=== PATIENT | female | born 1960 | race Caucasian/White ===

== ENCOUNTER 2017-01-04 21:46 | Inpatient (IN) ==
--- NOTE | 2017-01-04 22:08 | Emergency Department Note ---
Disposition Clinical Impression: DVT (deep venous thrombosis) Qualifiers: DVT location: lower extremity Affected thrombotic vein of extremity: unspecified vein of extremity Laterality: left Chronicity: acute Qualified Code( s): I82.402 - Acute embolism and thrombosis of unspecified deep veins of left lower extremity Disposition: Admitted As Inpatient Condition: Good Time of Disposition: 23:28 General Adult HPI - General Chief complaint: ED General Medical Stated complaint: MS Pain Time Seen by Provider: 01/04/17 21:47 Source: patient, EMS Limitations: no limitations Nursing Notes Reviewed: Yes Vital Signs Reviewed: Yes - History of Present Illness HPI Narrative: Patient complaining of increased pain to her left lower extremities. She does have chronic pain. She has an MS patient. states she is acting her normal self currently. She has not answering all of her questions and is rude to staff. There are no provoking or alleviating factors. She denies any trauma. Pain Scale: 10 - Related Data Home Medications Medication Instructions Recorded Confirmed Alendronate Sodium [Fosamax] 70 mg PO MO 01/13/16 05/17/16 Ascorbic Acid [Vitamin C] 500 mg PO BID 01/13/16 05/17/16 Calcium Carbonate/Vitamin D3 1 tab PO TID 01/13/16 05/17/16 [Calcium 500 + Vit D Caplet] Docusate Sodium [Dok] 100 mg PO BID 01/13/16 05/17/16 Ergocalciferol (VITAMIN D2) 50,000 unit PO GALLEGOS 01/13/16 05/17/16 [Vitamin D2 (50,000 UNIT)] Insulin Glargine [Lantus] 15 unit SQ HS 01/13/16 05/17/16 Loratadine [Claritin] 10 mg PO DAILY 01/13/16 05/17/16 Olopatadine HCl [Patanol] 5 ml OP BID 01/13/16 05/17/16 Ondansetron HCl [Zofran] 4 mg PO Q6H PRN 01/13/16 05/17/16 Oxybutynin Chloride [Ditropan Xl] 5 mg PO QAM 01/13/16 05/17/16 Polyethylene Glycol 3350 [MiraLAX] 17 gm PO DAILY PRN 01/13/16 05/17/16 Insulin LISPRO [Humalog] 2 - 12 unit SQ TID 05/17/16 05/17/16 Previous Rx's Medication Instructions Recorded Oxycodone HCl/Acetaminophen 1 each PO Q6H PRN #15 tablet 05/17/16 [Percocet 5-325 mg Tablet] Sulfamethoxazole/Trimeth DS 1 each PO BID #10 tablet 05/17/16 [Bactrim DS] Magnesium Citrate [Citroma] 296 ml PO ONCE #1 solution 05/30/16 Polyethylene Glycol 3350 [MiraLAX] 17 gm PO BID #20 powd.pack 05/30/16 levoFLOXacin [Levofloxacin] 750 mg PO DAILY #5 tablet 05/30/16 Ondansetron ODT [Zofran ODT] 4 mg SL Q6HR PRN #20 tab.rapdis 07/19/16 Allergies Allergy/AdvReac Type Severity Reaction Status Date / Time No Known Allergies Allergy Verified 05/17/16 09:21 All systems ED: reviewed and negative except as stated. Constitutional: Denies: fever, chills Cardiovascular: Denies: chest pain, palpitations, syncope Respiratory: Denies: cough, dyspnea Gastrointestinal: Denies: abdominal pain, nausea, vomiting, diarrhea Genitourinary: Denies: urgency, dysuria, frequency Musculoskeletal: Reports: other (Lower extremities pain bilaterally.). Denies: back pain, neck pain Integumentary: Reports: other (Patient states left lower extremity is more shiny than normal.). Denies: rash, abrasion Neurological: Denies: headache Past Medical History - Past Medical History Medical history: Reports: arthritis, diabetes, osteoporosis, other Surgical history: Reports: non-contributory, , cholecystectomy Psychiatric history: Reports: no psych history [employer] IND[employer] DEVELOPMENT CONSULTANT history: Reports: no [employer] DEVELOPMENT CONSULTANT history - Social History Smoking Status: Former smoker Smokeless Tobacco Status: No Alcohol use: Reports: none Drug use: Reports: none Physical Exam - General Limitations: no limitations General appearance: alert, in distress (Appears in pain) - Head Head exam: atraumatic, normocephalic, normal inspection - Eye Eye exam: Present: normal appearance, PERRL, EOMI. Absent: scleral icterus - ENT ENT exam: normal exam, normal oropharynx, mucous membranes moist - Neck Neck exam: Present: normal inspection, full ROM, trachea midline. Absent: tenderness, meningismus, lymphadenopathy - Chest Chest inspection: Present: normal inspection, symmetric chest wall rise. Absent : tenderness, rash - Respiratory Respiratory exam: Present: normal lung sounds bilaterally, respiratory distress. Absent: wheezes - Cardiovascular Cardiovascular exam: Present: normal rhythm, tachycardia, normal heart sounds - Abdominal Exam Abdominal exam: Present: soft, Non-Tender, normal bowel sounds. Absent: tenderness, distention, guarding, rebound, rigidity, organomegaly - Extremities Exam Extremities exam: Present: tenderness (Left lower extremity greater than right.) , normal capillary refill. Absent: calf tenderness - Expanded Upper Extremity Exam Shoulder exam: Present: normal inspection, full ROM Arm exam: Present: normal inspection, full ROM Elbow exam: Present: normal inspection, full ROM Forearm/Wrist exam: Present: normal inspection, full ROM Hand exam: Present: normal inspection, full ROM Vascular exam: Normal: capillary refill, radial pulse - Expanded Lower Extremity Exam Hip/Pelvis exam: Present: normal inspection, full ROM Upper leg exam: Present: normal inspection, full ROM Knee exam: Present: normal inspection, full ROM Lower leg exam: Present: other (Patient is able to move her lower legs however there are skin changes to them bilaterally. The skin is shiny bilaterally.) Ankle exam: Present: normal inspection, other (Does have movement it is just decreased) Foot/toe exam: Present: normal inspection, other (Does have movement shows decreased. Patient has strong pedal pulses bilaterally.) Neurovascular/Tendon exam: Absent: motor deficit, sensory deficit, tendon deficit - Back Exam Back exam: Present: normal inspection, full ROM. Absent: tenderness - Neurological Exam Neurological exam: Present: alert, other (Refuses to answer multiple questions.) - Psychiatric Psychiatric exam: Present: normal affect, agitated - Skin Skin exam: Present: warm, dry, intact. Absent: rash, cyanosis Course Course Narrative: Patient sent from [facility] for increased pain. Patient has an MS patient. She is reporting pain to her bilateral lower extremities left worse than right. She does not provide a very good history. She states the pain is chronic and going on for several months. The presents to the room and states that she is complaining of increased pain to the left side and that is why she is sent here today. He states her mentation is normal for her and this is no different. She does have a significant history of urinary tract infections. She has good pulses in her feet bilaterally. She has movement of both lower extremities however they are weak. This appears to be normal for patient. She does not appear to be in any distress at this time. She is alert but pleasantly demented. She does not want to speak to us and becomes disgruntled as we are asking what is hurting her today. We will image patient's left leg with an x-ray as well as good Doppler. He does not appear to be any gross swelling from the left compared to the right. She has no calf pain or tenderness. We will get an EKG as well as a troponin on the patient. She was given 5 mg of morphine prior to her arrival here. We will attempt to control patient's pain while she is here. - Reevaluation(s) Reevaluation #1: Patient reassessed. She is refusing x-rays at this time. She states she is in pain. We will give her more pain medication while she is here. We will admit patient for DVT. She is on Zaroxolyn at the halfway. So she has failed outpatient therapy for this. The halfway was unaware that she has ever had a DVT in the left lower extremity. Time: 23:17 - Consultations Consultation #1: Dr. Kong accepted patient in stable condition. Time: 23:24 Vital Signs Temperature 98.8 F 01/04/17 21:48 Pulse Rate 105 01/04/17 21:48 Respiratory Rate 18 01/04/17 21:48 Blood Pressure 155/80 01/04/17 21:48 O2 Sat by Pulse Oximetry 100 01/04/17 21:48 Temperature 98.8 F 01/04/17 21:48 Pulse Rate 120 01/04/17 23:28 Respiratory Rate 14 01/05/17 00:31 Blood Pressure 115/88 01/05/17 00:31 O2 Sat by Pulse Oximetry 98 01/04/17 23:28 Oxygen Delivery Oxygen Delivery Room Air Medical Decision Making - Medical Records Medical records reviewed: Yes I reviewed the patient's medical records. - Lab Data Lab results reviewed: Yes I reviewed the patient's lab results. Result diagrams: 01/04/17 22:17 01/04/17 22:17 Lab Results 01/04/17 01/04/17 01/04/17 Range/Units 22:17 22:17 22:17 WBC 13.8 H (4.3-11.1) K/mcL RBC 4.62 (3.82-4.97) M/mcL Hgb 13.0 (11.5-15.4) g/dL Hct 40.2 (35.3-44.9) % MCV 87.0 (83.0-100.0) fL MCH 28.1 (28.0-33.3) pg MCHC 32.3 (31.6-35.5) g/dL RDW 14.2 (11.5-14.5) % Plt Count 308 (140-400) K/mcL MPV 10.8 (9.4-12.4) fL Immature Gran % 0.3 (0-4) % Seg Neutrophils % 71.0 % Lymphocytes % 20.9 % Monocytes % 6.6 % Eosinophils % 0.8 % Basophils % 0.4 % Neutrophils # 9.8 H (1.6-8.9) K/mcL Lymphocytes # 2.9 (0.6-4.6) K/mcL Monocytes # 0.9 (0.0-1.3) K/mcL Eosinophils # 0.1 (0.0-0.6) K/mcL Basophils # 0.1 (0.0-0.2) K/mcL PT (9.4-12.1) Seconds INR APTT (26.0-36.0) Seconds Sodium 141 (136-145) mEq/L Potassium 3.9 (3.5-4.5) mEq/L Chloride 107 (98-109) mEq/L Carbon Dioxide 23 (19-29) mEq/L BUN 24 H (7-20) mg/dL Creatinine 0.80 (0.57-1.11) mg/dL Est GFR ( Amer) > 60 (> 60) Est GFR (Non-Af Amer) > 60 (> 60) BUN/Creatinine Ratio 30 H (6-26) Glucose 244 H (70-99) mg/dL Calculated Osmolality 304 H (280-300) Calcium 9.2 (8.6-10.8) mg/dL Troponin I 0.02 (0-0.03) ng/mL 01/04/17 Range/Units 22:17 WBC (4.3-11.1) K/mcL RBC (3.82-4.97) M/mcL Hgb (11.5-15.4) g/dL Hct (35.3-44.9) % MCV (83.0-100.0) fL MCH (28.0-33.3) pg MCHC (31.6-35.5) g/dL RDW (11.5-14.5) % Plt Count (140-400) K/mcL MPV (9.4-12.4) fL Immature Gran % (0-4) % Seg Neutrophils % % Lymphocytes % % Monocytes % % Eosinophils % % Basophils % % Neutrophils # (1.6-8.9) K/mcL Lymphocytes # (0.6-4.6) K/mcL Monocytes # (0.0-1.3) K/mcL Eosinophils # (0.0-0.6) K/mcL Basophils # (0.0-0.2) K/mcL PT 11.8 (9.4-12.1) Seconds INR 1.1 APTT 34.2 (26.0-36.0) Seconds Sodium (136-145) mEq/L Potassium (3.5-4.5) mEq/L Chloride (98-109) mEq/L Carbon Dioxide (19-29) mEq/L BUN (7-20) mg/dL Creatinine (0.57-1.11) mg/dL Est GFR ( Amer) (> 60) Est GFR (Non-Af Amer) (> 60) BUN/Creatinine Ratio (6-26) Glucose (70-99) mg/dL Calculated Osmolality (280-300) Calcium (8.6-10.8) mg/dL Troponin I (0-0.03) ng/mL - Radiology Data Radiology results reviewed: Yes I reviewed the patient's radiology results. - EKG Data EKG #1 EKG attestation: Yes I reviewed and interpreted this EKG. EKG results narrative: Sinus tachycardia at a rate of 121. WI interval is 175. QRS duration is 90. QT is 338. QTC is 410. There is a significant amount of artifact on this EKG however does not appear as if there is any signs of ischemia. No Previous EKG to compare to. Attestation Statement - Attestation Attestation: I, Matthieu Chairez, examined this patient and my medical decision-making was reviewed with the TEMPERATURE CONTROL INSPECTOR/PA/Advanced Practice Nurse/Resident Physician. I agree with the documented findings, disposition and treatment plan as described except to the extent set forth below. 56-year-old female presents with concerns of left lower extremity pain. Patient is a poor historian and is unable to give a history regarding her case her presentation. states she started to complain of left lower extremity pain over the past 24-48 hours. She is currently residing at a halfway for severe MS. Patient is nonambulatory and has sustained a fracture to her right femur without apparent trauma in the past. Patient has a left lower extremity DVT today even though she takes Xarelto at the nursing facility. Patient apparently took Coumadin in the past but was recently switched over the past few months. X-rays were ordered of the left lower extremity to evaluate for new or cold fracture. Patient refused these x-rays despite treatment with pain medication. Patient will be admitted to the hospital for further care and evaluation of her left lower extremity DVT. She was started on Lovenox after receiving a normal creatinine. Patient does not complain of shortness of breath or chest pain in the emergency department.
[2017-01-04 23:07] LABS: Basophils # 0.1 K/mcL (0.0-0.2); Basophils % 0.4 %; Eosinophils # 0.1 K/mcL (0.0-0.6); Eosinophils % 0.8 %; Hematocrit 40.2 % (35.3-44.9); Immature Granulocytes % 0.3 % (0-4); Lymphocytes # 2.9 K/mcL (0.6-4.6); Lymphocytes % 20.9 %; Mean Corpuscular HGB Conc 32.3 g/dL (31.6-35.5); Mean Corpuscular Hemoglobin 28.1 pg (28.0-33.3); Mean Platelet Volume 10.8 fL (9.4-12.4); Monocytes # 0.9 K/mcL (0.0-1.3); Monocytes % 6.6 %; Neutrophils # 9.8 K/mcL (1.6-8.9); Platelet Count 308 K/mcL (140-400); Red Blood Count 4.62 M/mcL (3.82-4.97); Red Cell Distribution Width 14.2 % (11.5-14.5)
[2017-01-04 23:12] LABS: INR 1.1; Prothrombin Time 11.8 Seconds (9.4-12.1)
[2017-01-04 23:14] LABS: Activated Partial Thrombo Time 34.2 Seconds (26.0-36.0)
[2017-01-04] MEDS ORDERED: *HR* HYDROmorphone (PF) 1 MG/ML SYRINGE IVP ONE (23:14)
[2017-01-04 23:17] LABS: BUN/Creatinine Ratio 30 (6-26); Blood Urea Nitrogen 24 mg/dL (7-20); Calcium 9.2 mg/dL (8.6-10.8); Carbon Dioxide 23 mEq/L (19-29); Chloride 107 mEq/L (98-109); Glucose 244 mg/dL (70-99); Osmolality,Calculated 304 (280-300); Potassium 3.9 mEq/L (3.5-4.5); Sodium 141 mEq/L (136-145); eGFR For African Americans > 60 (> 60); eGFR For Non-African Americans > 60 (> 60)
[2017-01-04] MEDS ORDERED: *HR* Enoxaparin 100 MG/ML SYRINGE SQ STA (23:23)
--- NOTE | 2017-01-04 23:42 | Internal Med History&Physical ---
Date of Encounter: 01/05/17 Time of Encounter: 23:30 Assessment and Plan (1) Acute DVT (deep venous thrombosis) Current visit: Yes Status: Acute Acute DVT of left lower extremity, with left lower extremity pain - patient has a history of DVT in the past Has been on the Coumadin and Xarelto in the past Ultrasound Doppler done in the ED shows acute DVT Continue subcutaneous Lovenox May need to start Coumadin again or Eliquis Repeat labs in a.m. 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 Patient is at baseline Qualifiers: Alzheimer's disease onset: early-onset Dementia behavioral disturbance: with behavioral disturbance Qualified Code(s): G30.0 - Alzheimer's disease with early onset; F02.81 - Dementia in other diseases classified elsewhere with behavioral disturbance (3) Multiple sclerosis Current visit: No Status: Chronic Chronic, poor physical conditioning, with neurogenic bladder Long-term resident at [facility] (4) Insulin dependent diabetes mellitus Current visit: No Status: Chronic Type 2 diabetes, insulin-dependent, hyperglycemia Insulin sliding scale, glucose checks and Levemir (5) Recurrent UTI Current visit: No Status: Chronic Secondary to multiple sclerosis/neurogenic bladder and chronic indwelling Rhodes catheter Internal Medicine - H&P: HPI Chief complaint: Left leg pain Admitted From: Emergency Dept History of present illness: Ms. Boyd is a 56 year old female with past medical history of diabetes, arthritis, osteoporosis, multiple sclerosis, neurogenic bladder, early onset dementia and recurrent UTIs. [facility] with complaints of pain in both lower extremities. Patient complains of worse pain in left lower leg. Pain seems to be worse with movement. No alleviating factors. No other associated symptoms. Denies chest pain and denies shortness of breath denies headache or dizziness and denies abdominal pain or nausea or vomiting. On examination patient is awake and alert. She does not provide a good history. is at bedside and provides most of the history. Patient is apparently at her baseline state. She does have a history of multiple sclerosis. states that patient is at baseline. She was [facility] because of worsening lower extremity pain. Worse with movement. Patient has used all imaging ordered in the ED. She has been given IV pain medication and also Lovenox in view of acute DVT. Patient has apparently been on Coumadin in the past and also been on Xarelto. is not sure if patient is still on anticoagulation. Patient and her have been explained about the condition and plan of care. They understood and agreed. No unanswered questions. Patient is being admitted for acute DVT will be on subcutaneous Lovenox. CODE STATUS full code. Past Med Surg Social Fam HX - Past Medical History Medical history: arthritis, dementia (early-onset), diabetes, osteoporosis, other (Multiple sclerosis, chronic pain) Psychiatric history: no psych history - Past Surgical History Surgical History: , cholecystectomy, other ([facility] for renal calculi) - Social History Smoking Status: Former smoker Smokeless Tobacco Status: No Alcohol use: none Drug use: none - Family History Mother Family Member Ethnicity: Non- Living Status: Hx Family Cancer: Yes Internal Medicine - H&P: Meds Alendronate Sodium [Fosamax] 70 mg PO MO 01/13/16 [History] Ascorbic Acid [Vitamin C] 500 mg PO BID 01/13/16 [History] Calcium Carbonate/Vitamin D3 [Calcium 500 + Vit D Caplet] 1 tab PO TID 01/13/16 [History] Docusate Sodium [Dok] 100 mg PO BID 01/13/16 [History] Ergocalciferol (VITAMIN D2) [Vitamin D2 (50,000 UNIT)] 50,000 unit PO GALLEGOS [History] Insulin Glargine [Lantus] 15 unit SQ HS 01/13/16 [History] Loratadine [Claritin] 10 mg PO DAILY 01/13/16 [History] Olopatadine HCl [Patanol] 5 ml OP BID 01/13/16 [History] Ondansetron HCl [Zofran] 4 mg PO Q6H PRN 01/13/16 [History] Oxybutynin Chloride [Ditropan Xl] 5 mg PO QAM 01/13/16 [History] Polyethylene Glycol 3350 [MiraLAX] 17 gm PO DAILY PRN 01/13/16 [History] Insulin LISPRO [Humalog] 2 - 12 unit SQ TID 05/17/16 [History] Oxycodone HCl/Acetaminophen [Percocet 5-325 mg Tablet] 1 each PO Q6H PRN #15 tablet 05/17/16 [Rx] Sulfamethoxazole/Trimeth DS [Bactrim DS] 1 each PO BID #10 tablet 05/17/16 [Rx] Magnesium Citrate [Citroma] 296 ml PO ONCE #1 solution 05/30/16 [Rx] Polyethylene Glycol 3350 [MiraLAX] 17 gm PO BID #20 powd.pack 05/30/16 [Rx] levoFLOXacin [Levofloxacin] 750 mg PO DAILY #5 tablet 05/30/16 [Rx] Ondansetron ODT [Zofran ODT] 4 mg SL Q6HR PRN #20 tab.rapdis 07/19/16 [Rx] Allergies No Known Allergies Allergy (Verified 05/17/16 09:21) All Systems PM: A 10-system review of systems was performed and is negative for pertinent findings except as documented above in the HPI. - Constitutional Constitutional: fatigue, weakness - EENT Eyes: no blurry vision, no loss of vision - Cardiovascular Cardiovascular ROS IM: no chest pain, no dyspnea, no dyspnea on exertion, no lightheadedness, no orthopnea, no syncope - Respiratory Respiratory: no cough, no dyspnea, no dyspnea on exertion, no wheezing, no chest congestion - Gastrointestinal Gastrointestinal: bloating, no abdominal pain, no cramping, no diarrhea, no nausea, no vomiting - Genitourinary Genitourinary: no dysuria - Musculoskeletal Musculoskeletal ROS IM: arthralgias - Neurological Neurological ROS: no abnormal gait, no abnormal speech, no convulsions, no dizziness, no focal weakness, no loss of vision - Constitutional Vitals: Temp Pulse Resp BP Pulse Ox 98.8 F 120 16 120/55 98 01/04/17 21:48 01/04/17 23:28 01/04/17 23:28 01/04/17 23:28 01/04/17 23:28 General appearance: Present: A&O X 2, no acute distress. Absent: answers questions appropriately Exam: Generalized weakness, in discomfort due to pain, does not provide a good history - Head Head exam: Present: atraumatic - Eye Eye exam: Present: EOMI - ENT ENT exam: Present: mucous membranes moist - Neck Neck exam general surgery: Present: supple - Respiratory Respiratory exam: Present: CTAB. Absent: rales, rhonchi, wheezes, tachypnea - Cardiovascular Cardiovascular exam: Present: +S1, +S2, systolic murmur, tachycardia - GI/Abdominal GI/Abdominal exam: Present: distended (Obese), soft. Absent: firm, guarding, tenderness - Extremities Exam Extremities exam: Present: tenderness (Left lower extremity tenderness), warm, radial pulses palpable and symetrical. Absent: cyanotic, pedal edema Additional comments: Strong bilateral pedal pulses, skin is shiny in both lower legs - Neurological Exam Neurological exam: Present: alert, no focal deficits. Absent: facial droop, speech deficit Additional comments: Inflow device, and does not provide a good history. Follows verbal commands, likely has early onset dementia, patient seems to be at baseline as per Internal Med - H&P Results - Labs CBC & Chem 7: 01/04/17 22:17 01/04/17 22:17 Labs: Short CBC 01/04/17 Range/Units 22:17 WBC 13.8 H (4.3-11.1) K/mcL Hgb 13.0 (11.5-15.4) g/dL Hct 40.2 (35.3-44.9) % Plt Count 308 (140-400) K/mcL Neutrophils # 9.8 H (1.6-8.9) K/mcL BMP 01/04/17 22:17 Sodium 141 Potassium 3.9 Chloride 107 Carbon Dioxide 23 BUN 24 H Creatinine 0.80 Glucose 244 H Calcium 9.2 Cardiac Enzymes 01/04/17 Range/Units 22:17 Troponin I 0.02 (0-0.03) ng/mL
[2017-01-05] MEDS ORDERED: Ondansetron 4 MG/2 ML VIAL IVP PRN (00:03)
[2017-01-05] MEDS ORDERED: Acetaminophen 325 MG TABLET PO PRN (00:03)
[2017-01-05] MEDS ORDERED: Naloxone 0.4 MG/ML INJ IVP PRN (00:03)
[2017-01-05] MEDS ORDERED: *HR* Dextrose 50 % in Water (Syg) 50 ML SYRINGE IVP PRN (00:07)
[2017-01-05] MEDS ORDERED: Dextrose Gel 15 GM PO PRN ×2 (00:07)
[2017-01-05] MEDS ORDERED: D5% in Water 1,000 ML IVC PRN (00:07)
[2017-01-05 04:03] LABS: Hematocrit 37.3 % (35.3-44.9); Hemoglobin 12.2 g/dL (11.5-15.4); INR 1.2; Mean Corpuscular HGB Conc 32.7 g/dL (31.6-35.5); Mean Corpuscular Hemoglobin 28.6 pg (28.0-33.3); Mean Corpuscular Volume 87.6 fL (83.0-100.0); Platelet Count 277 K/mcL (140-400); Red Blood Count 4.26 M/mcL (3.82-4.97); Red Cell Distribution Width 14.2 % (11.5-14.5)
[2017-01-05 04:12] LABS: BUN/Creatinine Ratio 30 (6-26); Blood Urea Nitrogen 24 mg/dL (7-20); Calcium 8.8 mg/dL (8.6-10.8); Carbon Dioxide 24 mEq/L (19-29); Chloride 107 mEq/L (98-109); Glucose 409 mg/dL (70-99); Osmolality,Calculated 313 (280-300); Sodium 141 mEq/L (136-145); eGFR For African Americans > 60 (> 60); eGFR For Non-African Americans > 60 (> 60)
[2017-01-05] MEDS: Insulin LISPRO 300 UNITS/3 ML VIAL SQ SCH ×5 (05:16→17:14)
[2017-01-05] MEDS: *HR* Enoxaparin 100 MG/ML SYRINGE SQ SCH ×2 (05:17→17:15)
[2017-01-05] MEDS: Famotidine 20 MG/2 ML VIAL IVP SCH ×2 (05:18→17:14)
[2017-01-05] MEDS: 0.9 % Sodium Chloride 1,000 ML IVC SCH (05:18)
[2017-01-05] MEDS ORDERED: Insulin Human Regular 6 UNIT in 0.9 % Sodium Chloride 10 ML IV ONE (06:45)
[2017-01-05] MEDS: Ascorbic Acid 500 MG TABLET PO SCH ×2 (07:57→21:09)
[2017-01-05] MEDS: (Olopatadine Hcl [Patanol] 5 ML) OP SCH ×2 (08:09→21:11)
--- NOTE | 2017-01-05 10:30 | Internal Med Progress Note ---
Date of Encounter: 01/05/17 Time of Encounter: 10:24 - Assessment and plan (1) Acute DVT (deep venous thrombosis) Current Visit: Yes Status: Acute Assessment and plan: Acute left lower extremity DVT Unclear whether the patient was on not on Xarelto before, she is not aware of any of her medications and says her aid manages that Continue Lovenox full dose twice a day and start Coumadin as the patient has been on Coumadin the past Consider switching to heparin drip if edema on her left lower extremity is not improving Planning on discharging back to the nursing facility 1 possible, Qualifiers: DVT location: lower extremity Affected thrombotic vein of extremity: unspecified vein of extremity Laterality: left Qualified Code(s): I82.402 - Acute embolism and thrombosis of unspecified deep veins of left lower extremity (2) Multiple sclerosis Current Visit: No Status: Chronic Assessment and plan: No exacerbation (3) Insulin dependent diabetes mellitus Current Visit: No Status: Chronic Assessment and plan: Continue Levemir 15 units at night Add 5 mg of lispro 3 times a day plus sliding scale (4) Recurrent UTI Current Visit: No Status: Chronic Assessment and plan: Order a UA Also obtain chest x-ray, as the patient is tachycardic in the low 100s and her history is unreliable (5) Dementia Current Visit: Yes Status: Chronic Qualifiers: Alzheimer's disease onset: early-onset Dementia behavioral disturbance: with behavioral disturbance Qualified Code(s): G30.0 - Alzheimer's disease with early onset; F02.81 - Dementia in other diseases classified elsewhere with behavioral disturbance - Subjective Interval history: The patient is complaining of severe pain in the left lower extremity, denies any cough, no abdominal pain, no dysuria. No fevers or chills, no diarrhea - Constitutional Vitals: Temp Pulse Resp BP Pulse Ox 98.1 F 115 20 91/52 93 01/05/17 06:43 01/05/17 06:43 01/05/17 06:43 01/05/17 06:43 01/05/17 08:22 General appearance: Present: A&O X 2, no acute distress. Absent: answers questions appropriately - Head Head exam: Present: atraumatic, normocephalic - Eye Eye exam: Present: PERRL, conjuntiva pink, sclera anicteric Pupils: Present: PERRL - Neck Neck exam general surgery: Present: supple, trachea midline. Absent: lymphadenopathy - Respiratory Respiratory exam: Present: CTAB. Absent: accessory muscle use, rales, rhonchi, wheezes - Cardiovascular Cardiovascular exam: Present: RRR, +S1, +S2. Absent: diastolic murmur, gallop, rubs, systolic murmur - GI/Abdominal GI/Abdominal exam: Present: normal bowel sounds, soft, no peritoneal signs. Absent: distended, tenderness - Extremities Exam Extremities exam: Present: warm, radial pulses palpable and symetrical. Absent : calf tenderness, cyanotic, pedal edema - Neurological Exam Neurological exam: Present: CN II-XII intact. Absent: oriented X3, no focal deficits, pronater drift, facial droop, speech deficit Additional comments: Generalized weakness, left upper extremity weaker than the other limbs. Left lower extremity is very edematous and tender to touch, no erythema - Skin Skin exam: Present: dry, intact Internal Medicine: Result - Labs CBC & Chem 7: 01/05/17 03:24 01/05/17 03:24 Labs: Short CBC 01/05/17 Range/Units 03:24 WBC 11.7 H (4.3-11.1) K/mcL Hgb 12.2 (11.5-15.4) g/dL Hct 37.3 (35.3-44.9) % Plt Count 277 (140-400) K/mcL [facility] 01/05/17 03:24 Sodium 141 Potassium 4.0 Chloride 107 Carbon Dioxide 24 BUN 24 H Creatinine 0.79 Glucose 409 H Calcium 8.8 - ABG Interpretation ABG results: PT/INR, D-dimer PT 13.0 Seconds (9.4-12.1) H 01/05/17 03:24 - VTE Reasons for not Prescribing Prophylaxis: Not indicated-Anticoagulated or INR therapeutic Consult Discharge Plan - Plan Referrals: Viktor Maldonado MD [Primary Care Provider] -
--- NOTE | 2017-01-05 14:43 | Electrocardiograph Report ---
[place] [id number] Test Date: 2017-01-04 Pat Name: Claudette Boyd Department: 102 Room: [facility] Gender: F Plaster Helper: Caroline : 1960 Requested By: Lynette Perry Order Number: [id number] Reading MD: Amanda Nugent Measurements Intervals [place] Rate: 121 P: 61 CO: 175 QRS: -2 QRSD: 90 T: 48 QT: 338 QTc: 410 Interpretive Statements SINUS TACHYCARDIA BASELINE ARTIFACT Electronically Signed On 01-05-2017 14:41:37 EDT by Amanda Nugent
[2017-01-05] MEDS ORDERED: Insulin LISPRO 300 UNITS/3 ML VIAL SQ SCH (15:00)
[2017-01-05 15:03] LABS: Bilirubin,Urine Negative (Negative); Blood,Urine Large (Negative); Clarity,Urine Turbid (Clear); Color,Urine Yellow (Yellow); Glucose,Urine (UA) 250 mg/dL (Normal); Ketones,Urine Negative (Negative); Leukocyte Esterase,Urine Large (Negative); Nitrite,Urine Positive (Negative); PH,Urine 5.5 pH Units (5.0-8.0); Protein,Urine 100 mg/dL (Neg-Trace); Specific Gravity,Urine 1.019 (1.010-1.025); Urobilinogen,Urine Normal (Normal)
[2017-01-05 15:05] LABS: Bacteria,Urine Many per hpf (None-Few); Hyaline Casts,Urine None Seen per lpf (None-Few); RBC,Urine TNTC per hpf (0-3); Squamous Epithelial Cell,Urine Many per lpf (None-Few); WBC,Urine TNTC per hpf (0-3)
[2017-01-05] MEDS: *HR* Morphine 2 MG/ML SYRINGE IVP PRN ×2 (15:49→23:15)
[2017-01-05] MEDS: Cefepime HCl 1,000 MG in D5% in Water (Mini-Bag+) 100 ML IVPB SCH ×2 (17:13→17:29)
[2017-01-05] MEDS: Nitrofurantoin (BID) 100 MG CAPSULE PO SCH (17:14)
[2017-01-05] MEDS: *HR* Warfarin 5 MG TABLET PO SCH (17:14)
[2017-01-05] MEDS ORDERED: Warfarin perPT PO PRN (18:00)
[2017-01-05] MEDS ORDERED: NON-FORMULARY MEDICATION 1 EACH EACH (Insulin Glargine [Lantus] 15 UNIT) SQ SCH (21:00)
[2017-01-05] MEDS: Insulin DETEMIR 100 UNIT/ML X5UNITS SQ SCH (21:10)
[2017-01-06] MEDS ORDERED: (Alendronate Sodium [Fosamax] 70 MG) PO SCH (00:02)
[2017-01-06 04:26] LABS: Hematocrit 34.5 % (35.3-44.9); Hemoglobin 11.2 g/dL (11.5-15.4); Mean Corpuscular HGB Conc 32.5 g/dL (31.6-35.5); Mean Corpuscular Hemoglobin 28.5 pg (28.0-33.3); Mean Corpuscular Volume 87.8 fL (83.0-100.0); Mean Platelet Volume 10.6 fL (9.4-12.4); Platelet Count 228 K/mcL (140-400); Red Blood Count 3.93 M/mcL (3.82-4.97); Red Cell Distribution Width 14.2 % (11.5-14.5)
[2017-01-06 04:30] LABS: INR 1.2; Prothrombin Time 12.6 Seconds (9.4-12.1)
[2017-01-06] MEDS: 0.9 % Sodium Chloride 1,000 ML IVC SCH ×2 (04:31→22:47)
[2017-01-06 04:43] LABS: BUN/Creatinine Ratio 31 (6-26); Blood Urea Nitrogen 19 mg/dL (7-20); Calcium 8.6 mg/dL (8.6-10.8); Carbon Dioxide 21 mEq/L (19-29); Chloride 109 mEq/L (98-109); Glucose 75 mg/dL (70-99); Osmolality,Calculated 287 (280-300); Potassium 3.5 mEq/L (3.5-4.5); Sodium 138 mEq/L (136-145); eGFR For African Americans > 60 (> 60); eGFR For Non-African Americans > 60 (> 60)
[2017-01-06] MEDS: Famotidine 20 MG/2 ML VIAL IVP SCH ×2 (05:52→18:07)
[2017-01-06] MEDS: Cefepime HCl 1,000 MG in D5% in Water (Mini-Bag+) 100 ML IVPB SCH ×2 (05:52→18:06)
[2017-01-06] MEDS: *HR* Enoxaparin 100 MG/ML SYRINGE SQ SCH ×2 (05:52→18:07)
[2017-01-06] MEDS: Insulin LISPRO 300 UNITS/3 ML VIAL SQ SCH ×6 (07:26→18:29)
[2017-01-06] MEDS: (Olopatadine Hcl [Patanol] 5 ML) OP SCH ×2 (07:27→22:34)
[2017-01-06] MEDS: Nitrofurantoin (BID) 100 MG CAPSULE PO SCH ×3 (09:09→22:37)
[2017-01-06] MEDS: Ascorbic Acid 500 MG TABLET PO SCH ×2 (09:09→22:32)
--- NOTE | 2017-01-06 09:35 | Internal Med Progress Note ---
Date of Encounter: 01/06/17 Time of Encounter: 09:32 - Assessment and plan (1) Acute DVT (deep venous thrombosis) Current Visit: Yes Status: Acute Assessment and plan: Acute left lower extremity DVT Unclear whether the patient was on not on Xarelto before, she is not aware of any of her medications she takes are she took in the past and says her aid manages that Continue Lovenox full dose twice a day and start Coumadin as the patient has been on Coumadin the past Consider switching to heparin drip if edema on her left lower extremity is not improving Planning on discharging back to the nursing facility when sensitivity of the urine culture is available Qualifiers: DVT location: lower extremity Affected thrombotic vein of extremity: unspecified vein of extremity Laterality: left Qualified Code(s): I82.402 - Acute embolism and thrombosis of unspecified deep veins of left lower extremity (2) UTI (urinary tract infection) Current Visit: Yes Status: Acute Assessment and plan: A urinalysis just performed showed a possible UTI. The patient has history of pseudomonas, MRSA and enterococcus recurring UTIs Continue cefepime and nitrofurantoin day 2 Await culture final report to modify antibiotic therapy The patient is refusing to take nitrofurantoin and Colace as she says that she has been developing gas with these 2 medications. I explained the need of taking the antibiotic but unfortunately the patient is acting very childish and will think about it Qualifiers: Urinary tract infection type: acute cystitis Hematuria presence: with hematuria Qualified Code(s): N30.01 - Acute cystitis with hematuria (3) Multiple sclerosis Current Visit: No Status: Chronic Assessment and plan: No exacerbation (4) Insulin dependent diabetes mellitus Current Visit: No Status: Chronic Assessment and plan: Continue Levemir 15 units at night Added 5 mg of lispro 3 times a day plus sliding scale (5) Recurrent UTI Current Visit: No Status: Chronic Assessment and plan: Order a UA Also obtain chest x-ray, as the patient is tachycardic in the low 100s and her history is unreliable (6) Dementia Current Visit: Yes Status: Chronic Qualifiers: Alzheimer's disease onset: early-onset Dementia behavioral disturbance: with behavioral disturbance Qualified Code(s): G30.0 - Alzheimer's disease with early onset; F02.81 - Dementia in other diseases classified elsewhere with behavioral disturbance - Subjective Interval history: The patient is complaining of severe pain in the left lower extremity, denies any cough, no abdominal pain, no dysuria. No fevers or chills, no diarrhea - Constitutional Vitals: Temp Pulse Resp BP Pulse Ox 99.2 F 91 17 103/61 96 01/06/17 07:05 01/06/17 07:05 01/06/17 07:05 01/06/17 07:05 01/06/17 07:05 General appearance: Present: A&O X 2, no acute distress. Absent: answers questions appropriately Internal Medicine: Result - Labs CBC & Chem 7: 01/06/17 04:01 01/06/17 04:01 Labs: Short CBC 01/06/17 Range/Units 04:01 WBC 10.1 (4.3-11.1) K/mcL Hgb 11.2 L (11.5-15.4) g/dL Hct 34.5 L (35.3-44.9) % Plt Count 228 (140-400) K/mcL BMP 01/06/17 04:01 Sodium 138 Potassium 3.5 Chloride 109 Carbon Dioxide 21 BUN 19 Creatinine 0.62 Glucose 75 Calcium 8.6 Urine 01/05/17 Range/Units 14:49 Urine Color Yellow (Yellow) Urine Clarity Turbid A (Clear) Urine pH 5.5 (5.0-8.0) pH Units Ur Specific [place] 1.019 (1.010-1.025) Urine Protein 100 H (Neg-Trace) mg/dL Urine Glucose (UA) 250 H (Normal) mg/dL - ABG Interpretation ABG results: PT/INR, D-dimer PT 12.6 Seconds (9.4-12.1) H 01/06/17 04:01 - Impressions Impressions Chest X-Ray 01/05/17 10:23 IMPRESSION: No acute disease D/ / Evaristo Banks MD / Evaristo Banks MD Interpreting Provider: Evaristo Banks MD - VTE Reasons for not Prescribing Prophylaxis: Not indicated-Anticoagulated or INR therapeutic Consult Discharge Plan - Plan Referrals: Viktor Maldonado MD [Primary Care Provider] -
--- NOTE | 2017-01-06 15:47 | Venous Imaging Report ---
LE Venous Duplex Patient Name:Claudette Boyd Order Number:[id number] Procedure Date:01/04/2017 Date:1960Age:56 yrs Gender:Female Location:[facility] ED Room #: ED25 Environmental Construction Engineer:Argelia Carrero Referring MD:Lynette Perry DO crew clerk:None Reading MD:Donnell Eden MD Primary Indications:LLE pain Secondary Indications: Risk Factors Yes/No Anticoagulants Impressions: Acute deep venous thrombosis is present in the left common femoral vein. Normal left lower extremity superficial venous exam. Normal contralateral common femoral vein. Recommendations: Test completed on 01/04/2017 at 11:00:00 pm. Critical findings reported to Dr. Perry in person at 11:00:00 pm on 01/04/2017 by Argelia Carrero. Findings Venous Duplex Results: Left: There is an acute partially occlusive thrombus seen in the left common femoral. Prior Study: No prior study available for comparison. Lower Extremity Venous Duplex Side Vein Compress Spontaneous Flow Augment Diameter (cm) Depth (cm) Left Distal Iliac Normal Yes Phasic Yes Left Common Femoral Partial no Absent no Left Superficial Femoral Normal Yes Phasic Yes Left Popliteal Normal Yes Phasic Yes Left Posterior Tibial Normal Yes Phasic Yes Left Peroneal Normal Yes Phasic Yes Left Saphenofemoral [place]unction Normal Yes Phasic Yes Left Great Saphenous Normal Yes Phasic Yes Left Lesser Saphenous Normal Yes Phasic Yes Right Common Femoral Normal Yes Phasic Yes Updated by Donnell Eden MD on 01/06/2017 3:39:33 PM electronically signed on 01/06/2017 3:39:48 PM with status of Final
[2017-01-06] MEDS: *HR* Warfarin 5 MG TABLET PO SCH (18:07)
[2017-01-06] MEDS: *HR* Morphine 2 MG/ML SYRINGE IVP PRN (22:32)
[2017-01-06] MEDS: Insulin DETEMIR 100 UNIT/ML X5UNITS SQ SCH (22:34)
[2017-01-07 04:42] LABS: Basophils % 0.5 %; Eosinophils # 0.2 K/mcL (0.0-0.6); Eosinophils % 2.3 %; Hematocrit 33.3 % (35.3-44.9); Hemoglobin 10.6 g/dL (11.5-15.4); Immature Granulocytes % 0.3 % (0-4); Lymphocytes # 2.9 K/mcL (0.6-4.6); Lymphocytes % 44.4 %; Mean Corpuscular HGB Conc 31.8 g/dL (31.6-35.5); Mean Corpuscular Hemoglobin 28.2 pg (28.0-33.3); Mean Corpuscular Volume 88.6 fL (83.0-100.0); Mean Platelet Volume 11.3 fL (9.4-12.4); Monocytes # 0.5 K/mcL (0.0-1.3); Monocytes % 7.8 %; Neutrophils # 2.9 K/mcL (1.6-8.9); Platelet Count 232 K/mcL (140-400); Red Blood Count 3.76 M/mcL (3.82-4.97); Red Cell Distribution Width 13.9 % (11.5-14.5); Segmented Neutrophils % 44.7 %
[2017-01-07 04:47] LABS: INR 1.1; Prothrombin Time 12.1 Seconds (9.4-12.1)
[2017-01-07 05:03] LABS: BUN/Creatinine Ratio 24 (6-26); Blood Urea Nitrogen 16 mg/dL (7-20); Calcium 8.3 mg/dL (8.6-10.8); Carbon Dioxide 23 mEq/L (19-29); Chloride 110 mEq/L (98-109); Glucose 302 mg/dL (70-99); Osmolality,Calculated 298 (280-300); Potassium 3.6 mEq/L (3.5-4.5); Sodium 138 mEq/L (136-145); eGFR For African Americans > 60 (> 60); eGFR For Non-African Americans > 60 (> 60)
[2017-01-07] MEDS: Cefepime HCl 1,000 MG in D5% in Water (Mini-Bag+) 100 ML IVPB SCH ×2 (05:59→17:28)
[2017-01-07] MEDS: Famotidine 20 MG/2 ML VIAL IVP SCH (06:00)
[2017-01-07] MEDS: *HR* Enoxaparin 100 MG/ML SYRINGE SQ SCH ×2 (06:05→17:30)
[2017-01-07] MEDS: Insulin LISPRO 300 UNITS/3 ML VIAL SQ SCH ×6 (09:05→16:50)
[2017-01-07] MEDS: Nitrofurantoin (BID) 100 MG CAPSULE PO SCH ×2 (09:08→17:21)
[2017-01-07] MEDS: Ascorbic Acid 500 MG TABLET PO SCH ×2 (09:08→20:40)
[2017-01-07] MEDS: (Olopatadine Hcl [Patanol] 5 ML) OP SCH ×2 (09:09→20:40)
[2017-01-07] MEDS: Famotidine 20 MG TABLET PO SCH (17:22)
[2017-01-07] MEDS ORDERED: *HR* Warfarin 7.5 MG TABLET PO ONE (18:00)
--- NOTE | 2017-01-07 19:06 | Internal Med Progress Note ---
Date of Encounter: 01/07/17 Time of Encounter: 19:04 - Assessment and plan (1) Acute DVT (deep venous thrombosis) Current Visit: Yes Status: Acute Assessment and plan: Acute left lower extremity DVT Unclear whether the patient was on not on Xarelto before, she is not aware of any of her medications she takes are she took in the past and says her aid manages that Continue Lovenox full dose twice a day and Coumadin, dosing per daily INR. Planning on discharging back to the nursing facility when sensitivity of the urine culture is available Qualifiers: DVT location: lower extremity Affected thrombotic vein of extremity: unspecified vein of extremity Laterality: left Qualified Code(s): I82.402 - Acute embolism and thrombosis of unspecified deep veins of left lower extremity (2) Insulin dependent diabetes mellitus Current Visit: No Status: Chronic Assessment and plan: Continue Levemir 15 units at night Added 5 mg of lispro 3 times a day plus sliding scale (3) Multiple sclerosis Current Visit: No Status: Chronic Assessment and plan: No exacerbation (4) Recurrent UTI Current Visit: No Status: Chronic Assessment and plan: She is clinically improving. She has a history of multidrug resistant organisms. She is currently being treated empirically with cefepime and Macrobid. Urine culture reveals Klebsiella sensitive to cephalosporins. I will discontinue Macrobid and transition to oral prior to discharge. - Subjective Interval history: 01/07/2017: The patient reports no abdominal plan dysuria hematuria or fever. She was admitted and currently received treatment for a complicated UTI. She has a history of resistant UTIs. - Constitutional Vitals: Temp Pulse Resp BP Pulse Ox 98.1 F 92 16 127/52 99 01/07/17 16:37 01/07/17 16:37 01/07/17 16:37 01/07/17 16:37 01/07/17 16:37 General appearance: Present: A&O X 2, no acute distress. Absent: answers questions appropriately - Eye Eye exam: Present: PERRL, conjuntiva pink, sclera anicteric Pupils: Present: PERRL - Respiratory Respiratory exam: Present: CTAB. Absent: accessory muscle use, rales, rhonchi, wheezes - Cardiovascular Cardiovascular exam: Present: RRR, +S1, +S2. Absent: diastolic murmur, gallop, rubs, systolic murmur - GI/Abdominal GI/Abdominal exam: Present: normal bowel sounds, soft, no peritoneal signs. Absent: distended, tenderness - Extremities Exam Extremities exam: Present: pedal edema (Left lower extremity pitting edema.), warm, radial pulses palpable and symetrical. Absent: calf tenderness, cyanotic Additional comments: Muscle atrophy in both upper and lower extremities. - Skin Skin exam: Present: dry, intact Internal Medicine: Result - Labs CBC & Chem 7: 01/07/17 03:37 01/07/17 03:37 Labs: Short CBC 01/07/17 Range/Units 03:37 WBC 6.6 (4.3-11.1) K/mcL Hgb 10.6 L (11.5-15.4) g/dL Hct 33.3 L (35.3-44.9) % Plt Count 232 (140-400) K/mcL Neutrophils # 2.9 (1.6-8.9) K/mcL BMP 01/07/17 03:37 Sodium 138 Potassium 3.6 Chloride 110 H Carbon Dioxide 23 BUN 16 Creatinine 0.67 Glucose 302 H Calcium 8.3 L - ABG Interpretation ABG results: PT/INR, D-dimer PT 12.1 Seconds (9.4-12.1) 01/07/17 03:37 - VTE Reasons for not Prescribing Prophylaxis: Not indicated-Anticoagulated or INR therapeutic Consult Discharge Plan - Plan Referrals: Viktor Maldonado MD [Primary Care Provider] -
[2017-01-07] MEDS: Insulin DETEMIR 100 UNIT/ML X5UNITS SQ SCH (20:40)
[2017-01-08 04:04] LABS: Basophils % 0.5 %; Eosinophils # 0.1 K/mcL (0.0-0.6); Eosinophils % 1.7 %; Hematocrit 34.5 % (35.3-44.9); Hemoglobin 11.3 g/dL (11.5-15.4); Immature Granulocytes % 0.1 % (0-4); Lymphocytes # 1.8 K/mcL (0.6-4.6); Lymphocytes % 21.1 %; Mean Corpuscular HGB Conc 32.8 g/dL (31.6-35.5); Mean Corpuscular Hemoglobin 28.6 pg (28.0-33.3); Mean Corpuscular Volume 87.3 fL (83.0-100.0); Mean Platelet Volume 10.7 fL (9.4-12.4); Monocytes # 0.6 K/mcL (0.0-1.3); Neutrophils # 5.8 K/mcL (1.6-8.9); Platelet Count 225 K/mcL (140-400); Red Blood Count 3.95 M/mcL (3.82-4.97); Segmented Neutrophils % 69.6 %
[2017-01-08 04:05] LABS: INR 1.1
[2017-01-08 04:15] LABS: BUN/Creatinine Ratio 26 (6-26); Blood Urea Nitrogen 18 mg/dL (7-20); Calcium 8.5 mg/dL (8.6-10.8); Carbon Dioxide 22 mEq/L (19-29); Chloride 111 mEq/L (98-109); Glucose 348 mg/dL (70-99); Osmolality,Calculated 306 (280-300); Potassium 3.7 mEq/L (3.5-4.5); Sodium 140 mEq/L (136-145); eGFR For African Americans > 60 (> 60); eGFR For Non-African Americans > 60 (> 60)
[2017-01-08] MEDS: *HR* Enoxaparin 100 MG/ML SYRINGE SQ SCH ×2 (06:15→17:44)
[2017-01-08] MEDS: Cefepime HCl 1,000 MG in D5% in Water (Mini-Bag+) 100 ML IVPB SCH ×2 (06:20→17:44)
[2017-01-08] MEDS: Ascorbic Acid 500 MG TABLET PO SCH ×2 (08:27→21:26)
[2017-01-08] MEDS: Insulin LISPRO 300 UNITS/3 ML VIAL SQ SCH ×6 (08:28→17:44)
[2017-01-08] MEDS: Famotidine 20 MG TABLET PO SCH ×2 (08:30→17:44)
[2017-01-08] MEDS: (Olopatadine Hcl [Patanol] 5 ML) OP SCH ×2 (10:29→21:29)
[2017-01-08] MEDS: Insulin DETEMIR 100 UNIT/ML X5UNITS SQ SCH ×2 (12:40→21:54)
[2017-01-08] MEDS: 0.9 % Sodium Chloride 1,000 ML IVC SCH ×2 (14:32→21:39)
[2017-01-08] MEDS ORDERED: *HR* Warfarin 10 MG TABLET PO ONE (18:00)
--- NOTE | 2017-01-08 19:11 | Internal Med Progress Note ---
Date of Encounter: 01/08/17 Time of Encounter: 10:00 - Assessment and plan (1) Acute DVT (deep venous thrombosis) Current Visit: Yes Status: Acute Assessment and plan: I will increase the dose of Coumadin to 7.5. I will change her diet to low vitamin K diet. Acute left lower extremity DVT Unclear whether the patient was on not on Xarelto before, she is not aware of any of her medications she takes are she took in the past and says her aid manages that Continue Lovenox full dose twice a day and Coumadin, dosing per daily INR. Planning on discharging back to the nursing facility when sensitivity of the urine culture is available Qualifiers: DVT location: lower extremity Affected thrombotic vein of extremity: unspecified vein of extremity Laterality: left Qualified Code(s): I82.402 - Acute embolism and thrombosis of unspecified deep veins of left lower extremity (2) Insulin dependent diabetes mellitus Current Visit: No Status: Chronic Assessment and plan: Continue Levemir 15 units at night Added 5 mg of lispro 3 times a day plus sliding scale (3) Multiple sclerosis Current Visit: No Status: Chronic Assessment and plan: Patient is very debilitated and she would benefit from PT OT evaluation to prevent any further decline while in the hospital. We will consult PT OT. No exacerbation (4) Recurrent UTI Current Visit: No Status: Chronic Assessment and plan: 01/08/2017: Urine culture shows Klebsiella. We will narrow coverage to Rocephin. She is clinically improving. She has a history of multidrug resistant organisms. She is currently being treated empirically with cefepime and Macrobid. Urine culture reveals Klebsiella sensitive to cephalosporins. I will discontinue Macrobid and transition to oral prior to discharge. - Subjective Interval history: 01/08/2017: The history is limited by dementia. She denies abdominal pain. She reports pain and the left lower extremity especially with movement. 01/07/2017: The patient reports no abdominal plan dysuria hematuria or fever. She was admitted and currently received treatment for a complicated UTI. She has a history of resistant UTIs. - Constitutional Vitals: Temp Pulse Resp BP Pulse Ox 98.3 F 94 18 154/68 100 01/08/17 10:37 01/08/17 10:37 01/08/17 10:37 01/08/17 10:37 01/08/17 10:37 General appearance: Present: A&O X 2, no acute distress. Absent: answers questions appropriately - Respiratory Respiratory exam: Present: decreased breath sounds. Absent: accessory muscle use, rales, rhonchi, wheezes - Cardiovascular Cardiovascular exam: Present: RRR, +S1, +S2. Absent: diastolic murmur, gallop, rubs, systolic murmur - GI/Abdominal GI/Abdominal exam: Present: normal bowel sounds, soft, no peritoneal signs. Absent: distended, tenderness - Extremities Exam Extremities exam: Present: pedal edema, warm, radial pulses palpable and symetrical. Absent: calf tenderness, cyanotic - Skin Skin exam: Present: dry, intact Internal Medicine: Result - Labs CBC & Chem 7: 01/08/17 03:49 01/08/17 03:49 Labs: Short CBC 01/08/17 Range/Units 03:49 WBC 8.3 (4.3-11.1) K/mcL Hgb 11.3 L (11.5-15.4) g/dL Hct 34.5 L (35.3-44.9) % Plt Count 225 (140-400) K/mcL Neutrophils # 5.8 (1.6-8.9) K/mcL BMP 01/08/17 03:49 Sodium 140 Potassium 3.7 Chloride 111 H Carbon Dioxide 22 BUN 18 Creatinine 0.69 Glucose 348 H Calcium 8.5 L - ABG Interpretation ABG results: PT/INR, D-dimer PT 12.0 Seconds (9.4-12.1) 01/08/17 03:49 - VTE Reasons for not Prescribing Prophylaxis: Not indicated-Anticoagulated or INR therapeutic Consult Discharge Plan - Plan Referrals: Viktor Maldonado MD [Primary Care Provider] -
[2017-01-09 05:23] LABS: Basophils % 0.5 %; Eosinophils # 0.2 K/mcL (0.0-0.6); Eosinophils % 2.4 %; Hematocrit 32.3 % (35.3-44.9); Hemoglobin 10.7 g/dL (11.5-15.4); Immature Granulocytes % 0.3 % (0-4); Lymphocytes # 2.5 K/mcL (0.6-4.6); Lymphocytes % 33.5 %; Mean Corpuscular HGB Conc 33.1 g/dL (31.6-35.5); Mean Corpuscular Hemoglobin 28.5 pg (28.0-33.3); Mean Corpuscular Volume 86.1 fL (83.0-100.0); Mean Platelet Volume 10.7 fL (9.4-12.4); Monocytes # 0.6 K/mcL (0.0-1.3); Monocytes % 8.1 %; Neutrophils # 4.1 K/mcL (1.6-8.9); Platelet Count 235 K/mcL (140-400); Red Blood Count 3.75 M/mcL (3.82-4.97); Red Cell Distribution Width 14.2 % (11.5-14.5); Segmented Neutrophils % 55.2 %
[2017-01-09] MEDS: Famotidine 20 MG TABLET PO SCH ×2 (05:35→17:25)
[2017-01-09] MEDS: *HR* Enoxaparin 100 MG/ML SYRINGE SQ SCH ×2 (05:35→17:23)
[2017-01-09 05:38] LABS: BUN/Creatinine Ratio 19 (6-26); Blood Urea Nitrogen 12 mg/dL (7-20); Calcium 8.8 mg/dL (8.6-10.8); Carbon Dioxide 22 mEq/L (19-29); Chloride 111 mEq/L (98-109); Glucose 160 mg/dL (70-99); Osmolality,Calculated 295 (280-300); Potassium 3.3 mEq/L (3.5-4.5); Sodium 141 mEq/L (136-145); eGFR For African Americans > 60 (> 60); eGFR For Non-African Americans > 60 (> 60)
[2017-01-09 05:40] LABS: INR 1.6; Prothrombin Time 17.3 Seconds (9.4-12.1)
[2017-01-09] MEDS: Insulin DETEMIR 100 UNIT/ML X5UNITS SQ SCH ×2 (09:16→21:28)
[2017-01-09] MEDS: Insulin LISPRO 300 UNITS/3 ML VIAL SQ SCH ×6 (09:20→17:19)
[2017-01-09] MEDS: (Olopatadine Hcl [Patanol] 5 ML) OP SCH (10:31)
[2017-01-09] MEDS: Ascorbic Acid 500 MG TABLET PO SCH (10:39)
[2017-01-09] MEDS ORDERED: Potassium Chloride Elixir 20 MEQ/15 ML UDC PO ONE (16:00)
--- NOTE | 2017-01-09 17:31 | Internal Med Progress Note ---
Date of Encounter: 01/09/17 Time of Encounter: 16:00 - Assessment and plan (1) Acute DVT (deep venous thrombosis) Current Visit: Yes Status: Acute Assessment and plan: Continue with low vitamin K diet. Continue with Coumadin 5 mg daily at bedtime. Monitor daily INR. Continue with Lovenox. Acute left lower extremity DVT Unclear whether the patient was on not on Xarelto before, she is not aware of any of her medications she takes are she took in the past and says her aid manages that Planning on discharging back to the nursing facility when INR closer to goal. Qualifiers: DVT location: lower extremity Affected thrombotic vein of extremity: unspecified vein of extremity Laterality: left Qualified Code(s): I82.402 - Acute embolism and thrombosis of unspecified deep veins of left lower extremity (2) Insulin dependent diabetes mellitus Current Visit: No Status: Chronic Assessment and plan: Continue Levemir 15 units at night Added 5 mg of lispro 3 times a day plus sliding scale (3) Multiple sclerosis Current Visit: No Status: Chronic Assessment and plan: Patient is very debilitated and she would benefit from PT OT evaluation to prevent any further decline while in the hospital. We will consult PT OT. No exacerbation (4) Recurrent UTI Current Visit: No Status: Chronic Assessment and plan: 01/09/2017: Continue with ceftriaxone, clinically improving. 01/08/2017: Urine culture shows Klebsiella. We will narrow coverage to Rocephin. She is clinically improving. She has a history of multidrug resistant organisms. She is currently being treated empirically with cefepime and Macrobid. Urine culture reveals Klebsiella sensitive to cephalosporins. I will discontinue Macrobid and transition to oral prior to discharge. - Subjective Interval history: 01/09/2017: She reports left lower extremity pain which is severe and sharp, worse with any kind of movement and associated with leg swelling. 01/08/2017: The history is limited by dementia. She denies abdominal pain. She reports pain and the left lower extremity especially with movement. 01/07/2017: The patient reports no abdominal plan dysuria hematuria or fever. She was admitted and currently received treatment for a complicated UTI. She has a history of resistant UTIs. - Constitutional Vitals: Temp Pulse Resp BP Pulse Ox 98.2 F 85 20 127/70 96 01/09/17 03:43 01/09/17 16:05 01/09/17 16:05 01/09/17 16:05 01/09/17 16:05 General appearance: Present: A&O X 2, no acute distress. Absent: answers questions appropriately - Respiratory Respiratory exam: Present: CTAB. Absent: accessory muscle use, rales, rhonchi, wheezes - Cardiovascular Cardiovascular exam: Present: RRR, +S1, +S2. Absent: diastolic murmur, gallop, rubs, systolic murmur - GI/Abdominal GI/Abdominal exam: Present: normal bowel sounds, soft, no peritoneal signs. Absent: distended, tenderness - Extremities Exam Extremities exam: Present: pedal edema (2+ lower extremity edema worse in the left), warm, radial pulses palpable and symetrical. Absent: calf tenderness, cyanotic - Skin Skin exam: Present: dry, intact Internal Medicine: Result - Labs CBC & Chem 7: 01/09/17 05:01 01/09/17 05:01 Labs: Short CBC 01/09/17 Range/Units 05:01 WBC 7.4 (4.3-11.1) K/mcL Hgb 10.7 L (11.5-15.4) g/dL Hct 32.3 L (35.3-44.9) % Plt Count 235 (140-400) K/mcL Neutrophils # 4.1 (1.6-8.9) K/mcL BMP 01/09/17 05:01 Sodium 141 Potassium 3.3 L Chloride 111 H Carbon Dioxide 22 BUN 12 Creatinine 0.62 Glucose 160 H Calcium 8.8 - ABG Interpretation ABG results: PT/INR, D-dimer PT 17.3 Seconds (9.4-12.1) H 01/09/17 05:01 - VTE Reasons for not Prescribing Prophylaxis: Not indicated-Anticoagulated or INR therapeutic Consult Discharge Plan - Plan Referrals: Viktor Maldonado MD [Primary Care Provider] -
[2017-01-09] MEDS ORDERED: *HR* Warfarin 10 MG TABLET PO ONE (18:00)
[2017-01-09] MEDS: *HR* Morphine 2 MG/ML SYRINGE IVP PRN (18:39)
--- NOTE | 2017-01-09 20:24 | Event Note ---
Date of Encounter: 01/09/17 Time of Encounter: 20:21 I was called by the nurse to evaluate the patient for leg pain. The patient had received 2 mg of morphine IV prior to my arrival. Upon evaluation the patient is lying in bed in no acute distress. She complains of left arm discomfort. She states that she has 0/10 pain while resting her legs but she has severe pain while trying to move her left foot. Exam reveals bilateral lower extremity pitting edema, left worse than right. Dorsalis pedis pulses are present and bounding bilaterally. There is good capillary refill. Exam is unchanged from earlier today. Plan: Continue with Lovenox and warfarin. Pain control with IV morphine. Monitor closely.
[2017-01-10] MEDS: Ascorbic Acid 500 MG TABLET PO SCH ×2 (00:35→08:26)
[2017-01-10] MEDS: *HR* Morphine 2 MG/ML SYRINGE IVP PRN ×2 (03:39→08:44)
[2017-01-10] MEDS: *HR* Enoxaparin 100 MG/ML SYRINGE SQ SCH (05:37)
[2017-01-10] MEDS: Famotidine 20 MG TABLET PO SCH ×2 (05:38→17:38)
[2017-01-10 06:13] LABS: Basophils % 0.4 %; Eosinophils # 0.1 K/mcL (0.0-0.6); Eosinophils % 1.8 %; Hematocrit 31.4 % (35.3-44.9); Hemoglobin 10.4 g/dL (11.5-15.4); Immature Granulocytes % 0.3 % (0-4); Lymphocytes # 2.2 K/mcL (0.6-4.6); Lymphocytes % 28.9 %; Mean Corpuscular HGB Conc 33.1 g/dL (31.6-35.5); Mean Corpuscular Volume 87.5 fL (83.0-100.0); Mean Platelet Volume 11.2 fL (9.4-12.4); Monocytes # 0.5 K/mcL (0.0-1.3); Monocytes % 6.8 %; Neutrophils # 4.7 K/mcL (1.6-8.9); Platelet Count 226 K/mcL (140-400); Red Blood Count 3.59 M/mcL (3.82-4.97); Red Cell Distribution Width 14.6 % (11.5-14.5); Segmented Neutrophils % 61.8 %
[2017-01-10 06:23] LABS: INR 2.6; Prothrombin Time 28.4 Seconds (9.4-12.1)
[2017-01-10 06:27] LABS: BUN/Creatinine Ratio 18 (6-26); Blood Urea Nitrogen 12 mg/dL (7-20); Calcium 8.5 mg/dL (8.6-10.8); Carbon Dioxide 23 mEq/L (19-29); Chloride 107 mEq/L (98-109); Glucose 333 mg/dL (70-99); Osmolality,Calculated 301 (280-300); Potassium 4.2 mEq/L (3.5-4.5); Sodium 139 mEq/L (136-145); eGFR For African Americans > 60 (> 60); eGFR For Non-African Americans > 60 (> 60)
[2017-01-10] MEDS: Insulin LISPRO 300 UNITS/3 ML VIAL SQ SCH ×6 (08:24→16:33)
[2017-01-10] MEDS: Insulin DETEMIR 100 UNIT/ML X5UNITS SQ SCH (08:33)
[2017-01-10] MEDS ORDERED: *HR* OxyCODONE/APAP 5/325 TABLET PO PRN (09:17)
[2017-01-10] MEDS ORDERED: Furosemide 20 MG/2 ML VIAL IVP ONE (09:17)
[2017-01-10 15:10] VITALS: BP 99/62
--- NOTE | 2017-01-10 15:23 | Discharge Summary ---
Date of Encounter: 01/10/17 Time of Encounter: 15:12 - Discharge Diagnosis (1) Acute DVT (deep venous thrombosis) Priority: Primary Status: Acute Qualifiers: DVT location: lower extremity Affected thrombotic vein of extremity: unspecified vein of extremity Laterality: left Qualified Code(s): I82.402 - Acute embolism and thrombosis of unspecified deep veins of left lower extremity (2) Insulin dependent diabetes mellitus Priority: Secondary Status: Chronic (3) Multiple sclerosis Priority: Secondary Status: Chronic (4) Recurrent UTI Priority: Secondary Status: Chronic - Discharge Medications Prescriptions: OxyCODONE/APAP 5/325 [Percocet 5/325 MG] 1 each PO Q6HR PRN #30 tablet PRN Reason: Moderate Pain Cefuroxime PO [Ceftin] 250 mg PO Q12HR #10 tablet Morphine Sulfate [Arymo ER] 15 mg PO Q6H #14 tab.po.er Warfarin [Coumadin] 5 mg PO 1800 30 Days Home Medications: Alendronate Sodium [Fosamax] 70 mg PO MO 01/13/16 [History] Ascorbic Acid [Vitamin C] 500 mg PO BID 01/13/16 [History] Calcium Carbonate/Vitamin D3 [Calcium 500 + Vit D Caplet] 1 tab PO TID 01/13/16 [History] Docusate Sodium [Dok] 100 mg PO BID 01/13/16 [History] Ergocalciferol (VITAMIN D2) [Vitamin D2 (50,000 UNIT)] 50,000 unit PO GALLEGOS [History] Insulin Glargine [Lantus] 15 unit SQ QAM 01/13/16 [History] Loratadine [Claritin] 10 mg PO DAILY 01/13/16 [History] Olopatadine HCl [Patanol] 1 drop BOTH EYES BID 01/13/16 [History] Ondansetron HCl [Zofran] 4 mg PO Q6H PRN 01/13/16 [History] Oxybutynin Chloride [Ditropan Xl] 5 mg PO QAM 01/13/16 [History] Polyethylene Glycol 3350 [MiraLAX] 17 gm PO DAILY 01/13/16 [History] Insulin LISPRO [Humalog] 2 - 12 unit SQ ACHS 05/17/16 [History] Oxycodone HCl/Acetaminophen [Percocet 5-325 mg Tablet] 1 each PO Q6H PRN #15 tablet 05/17/16 [Rx] Cefuroxime PO [Ceftin] 250 mg PO Q12HR #10 tablet 01/10/17 [Rx] Enoxaparin [Lovenox] 80 mg SQ Q12HCO #3 syringe 01/10/17 [Rx] Morphine Sulfate [Arymo ER] 15 mg PO Q6H #14 tab.po.er 01/10/17 [Rx] OxyCODONE/APAP 5/325 [Percocet 5/325 MG] 1 each PO Q6HR PRN #30 tablet 01/10/17 [Rx] Warfarin [Coumadin] 5 mg PO 1800 30 Days 01/10/17 [Rx] Allergies/Adverse Reactions: Allergies No Known Allergies Allergy (Verified 01/05/17 04:11) Date of admission: 01/05/17 00:03 Primary care physician: Viktor Maldonado MD Consults: 01/05/17 01:37 Consult to Pastoral Services [CONS] Routine Comment: Consult to [place] [facility] [CONS] Routine Reason for SW Consult: ECF 01/08/17 10:44 PT [Consult to Physical Therapy] [CONS] Routine Comment: Evaluate, develop and implement POC Reason for Consult: multiple sclerosis, deconditioning 01/08/17 10:45 OT [Consult to Occupational Therapy] [CONS] Routine Comment: Evaluate, develop and implement POC Reason for Consult: Deconditioning - Patient Status Disposition: Transfer SNF Condition: Good Functional capacity at discharge: bed bound Overall status at discharge: patient is progressing back to baseline - Discharge Instructions Follow Up With: Viktor Maldonado MD [Primary Care Provider] - - Diet and Activity Activity: as per physical therapy, increase activity as tolerated Diet: diabetic diet, low salt diet Hospital course: Ms. Boyd is a 56 year old female with past medical history of multiple sclerosis who was brought to the hospital for evaluation of left lower extremity swelling and pain. She was diagnosed with right lower extremity DVT for which she received treatment with Lovenox and Coumadin. She was also diagnosed with UTI for which she was treated with ceftriaxone and this will be switched to Ceftin upon discharge. On the day of discharge her INR was 2.6. She complained of severe pain and her right lower extremity, particularly with mobilization and she required treatment with IV morphine. Currently her pain as reasonably well-controlled. She has tolerated an oral diet. She will be discharged back to subacute rehabilitation. - Time Spent with Patient Total time spent providing and/or coordinating discharge services: Greater than 30 minutes - Constitutional Vitals: Temp Pulse Resp BP Pulse Ox 99.1 F 95 18 99/62 94 01/10/17 15:00 01/10/17 15:00 01/10/17 15:00 01/10/17 15:00 01/10/17 15:00 General appearance: Present: A&O X 2, no acute distress. Absent: answers questions appropriately - Respiratory Respiratory exam: Present: CTAB. Absent: accessory muscle use, rales, rhonchi, wheezes - Cardiovascular Cardiovascular exam: Present: RRR, +S1, +S2. Absent: diastolic murmur, gallop, rubs, systolic murmur - GI/Abdominal GI/Abdominal exam: Present: normal bowel sounds, soft, no peritoneal signs. Absent: distended, tenderness - Extremities Exam Extremities exam: Present: pedal edema (Bilateral lower extremity edema, worse on the left), warm, radial pulses palpable and symetrical. Absent: calf tenderness, cyanotic - Skin Skin exam: Present: dry, intact - VTE Reasons for not Prescribing Prophylaxis: Not indicated-Anticoagulated or INR therapeutic
--- NOTE | 2017-01-10 15:28 | Physician Discharge Referral ---
ExtendedCare Referral Info Transfer To: F Provider in Charge after Transfer: PCP Institutional Level of Care: Skilled - Diagnosis (1) Acute DVT (deep venous thrombosis) Status: Acute (2) Insulin dependent diabetes mellitus Status: Chronic (3) Multiple sclerosis Status: Chronic (4) Recurrent UTI Status: Chronic - Transfer Medications Prescriptions: OxyCODONE/APAP 5/325 [Percocet 5/325 MG] 1 each PO Q6HR PRN #30 tablet PRN Reason: Moderate Pain Cefuroxime PO [Ceftin] 250 mg PO Q12HR #10 tablet Morphine Sulfate [Arymo ER] 15 mg PO Q6H #14 tab.po.er Warfarin [Coumadin] 5 mg PO 1800 30 Days Home Medications: Alendronate Sodium [Fosamax] 70 mg PO MO 01/13/16 [History] Ascorbic Acid [Vitamin C] 500 mg PO BID 01/13/16 [History] Calcium Carbonate/Vitamin D3 [Calcium 500 + Vit D Caplet] 1 tab PO TID 01/13/16 [History] Docusate Sodium [Dok] 100 mg PO BID 01/13/16 [History] Ergocalciferol (VITAMIN D2) [Vitamin D2 (50,000 UNIT)] 50,000 unit PO GALLEGOS [History] Insulin Glargine [Lantus] 15 unit SQ QAM 01/13/16 [History] Loratadine [Claritin] 10 mg PO DAILY 01/13/16 [History] Olopatadine HCl [Patanol] 1 drop BOTH EYES BID 01/13/16 [History] Ondansetron HCl [Zofran] 4 mg PO Q6H PRN 01/13/16 [History] Oxybutynin Chloride [Ditropan Xl] 5 mg PO QAM 01/13/16 [History] Polyethylene Glycol 3350 [MiraLAX] 17 gm PO DAILY 01/13/16 [History] Insulin LISPRO [Humalog] 2 - 12 unit SQ ACHS 05/17/16 [History] Oxycodone HCl/Acetaminophen [Percocet 5-325 mg Tablet] 1 each PO Q6H PRN #15 tablet 05/17/16 [Rx] Cefuroxime PO [Ceftin] 250 mg PO Q12HR #10 tablet 01/10/17 [Rx] Enoxaparin [Lovenox] 80 mg SQ Q12HCO #3 syringe 01/10/17 [Rx] Morphine Sulfate [Arymo ER] 15 mg PO Q6H #14 tab.po.er 01/10/17 [Rx] OxyCODONE/APAP 5/325 [Percocet 5/325 MG] 1 each PO Q6HR PRN #30 tablet 01/10/17 [Rx] Warfarin [Coumadin] 5 mg PO 1800 30 Days 01/10/17 [Rx] Allergies/Adverse Reactions: Allergies No Known Allergies Allergy (Verified 01/05/17 04:11) - Respiratory Orders Smoking Cessation: Smoking cessation has been advised. For more information, call the [place] Tobacco Quit Line at 8-383-RRTB-NOW. - Lab Orders Lab Orders: Other (include drug levels w/frequency) (INR on 01/11/2017report to me at [phone]. INR on 01/13/2017 to be reported to PCP.) - Advance Directives Living Will: Yes Power of Undraped Artist Model: Yes Code Status: Full Code - Mobility Orders Bedrest - Rehabiliation Orders Rehab Potential: Fair Rehab Orders: Evaluation for Physical Therapy, Evaluation for Occupational Therapy - Treatments Skin tear care topically daily PRN per policy - Diet Orders No Added Salt (MATY), No Concentrated Sweets CERTIFICATION: I certify that the transfer of the above named patient to an Extended Care Facility is necessary for the continuing treatment of the diagnosis listed. The above information is true and accurate reflection of patient's current condition. Confidential - Redisclosure prohibited without a patient's written consent.
[2017-01-10] MEDS ORDERED: *HR* Warfarin 2.5 MG TABLET PO ONE (17:04)
[2017-01-10] MEDS ORDERED: *HR* Enoxaparin 80 MG/0.8 ML SYRINGE SQ SCH (18:00)
[2017-01-10] MEDS ORDERED: *HR* Warfarin 5 MG TABLET PO ONE (18:00)
== END 2017-01-10 18:35 ==
LOC: 3NENU 21:46 → EMEROO 21:46 → SUATTDRO 01-05 00:03 → 3NENU 01-05 00:32 → 3ANU 01-08 14:31
PROVIDERS: ADMIT Family Medicine; ATTEND Internal Medicine

== ENCOUNTER 2018-05-26 17:37 | Inpatient (IN) ==
[2018-05-26] MEDS ORDERED: 0.9 % Sodium Chloride 1,000 ML IVC ONE ×2 (17:44→18:28)
--- NOTE | 2018-05-26 18:02 | Emergency Department Note ---
Addendum entered and electronically signed by Brett Guthrie DO 05/27/18 05:29: I examined this patient and my medical decision-making was reviewed with the Briseida soto Physician. I agree with the documented findings, disposition and treatment plan as described except to the extent set forth below. Findings consistent with DKA, altered mental status, urinary tract infection, start antibiotics and administer IV fluids. Start insulin infusion. Patient meets sepsis criteria with lactic acidosis. We will admit for further management. Please delete the prescriptions which include Eucerin S, gentamicin, Levaquin, nystatin from the chart as these were entered incorrectly by myself. Original Note: Disposition Clinical Impression: Altered mental status Qualifiers: Altered mental status type: unspecified Qualified Code(s): R41.82 - Altered mental status, unspecified Disposition: Home, Self-Care Condition: Good Reasons to Return/Additional Instructions: Please follow up with Dr. Manzano this week for surgical debridement of the ulcer on the stomach. FU with Dr. Staley as well. Prescriptions: Budesonide [Uceris] 9 mg PO DAILY 30 Days #30 tabdr...er Gentamicin Sulfate Cream [Gentamicin Sulfate] 0 gm TD BID 10 Days #1 tube Levofloxacin [Levaquin] 500 mg PO DAILY #5 tablet Nystatin POWDER [Nystop] 1 appl TP BID #30 gm Referrals: NONE,PCP [Primary Care Provider] - Be Manzano MD [Non-Partnered Physician] - Time of Disposition: 19:30 General Adult HPI - General Chief complaint: ED Nausea/Vomiting/Diarrhea Stated complaint: N/V/D Time Seen by Provider: 05/26/18 17:43 Source: EMS Limitations: altered mental status Nursing Notes Reviewed: Yes Vital Signs Reviewed: Yes - History of Present Illness HPI Narrative: Patient is a 57-year-old female presenting to [facility] ED for one day history of nausea/vomiting/diarrhea. Patient comes from [facility] where she is a long-term resident. Patient is noted to have a history of MS. It is initially reported the patient is currently at baseline. Patient appears to be very pale, is contractured in her upper extremities, and is ANO 1 to person only. Patient's unable to give time of onset of her symptoms or cooperate with review of systems questioning. Patient is alert and verbal stimuli and groans to diffuse palpation of her abdomen. Onset (ago): day(s) Location: abdomen Pain Scale: 0 - Related Data Home Medications Medication Instructions Recorded Confirmed Alendronate Sodium [Fosamax] 70 mg PO MO 01/13/16 05/26/18 Ascorbic Acid [Vitamin C] 500 mg PO BID 01/13/16 05/26/18 Calcium Carbonate/Vitamin D3 1 tab PO TID 01/13/16 05/26/18 [Calcium 500 + Vit D Caplet] Docusate Sodium [Dok] 100 mg PO BID 01/13/16 05/26/18 Ergocalciferol (VITAMIN D2) 50,000 unit PO GALLEGOS 01/13/16 05/26/18 [Vitamin D2 (50,000 UNIT)] Insulin Glargine [Lantus] 15 unit SQ QAM 01/13/16 05/26/18 Loratadine [Claritin] 10 mg PO DAILY 01/13/16 05/26/18 Ondansetron HCl [Zofran] 4 mg PO Q6H PRN 01/13/16 05/26/18 Polyethylene Glycol 3350 [MiraLAX] 17 gm PO DAILY 01/13/16 05/26/18 Guaifenesin [Mucinex] 600 mg PO Q12H 09/05/17 05/26/18 Ipratropium/Albuterol Neb [Duoneb] 1 vial IH Q4H PRN 09/05/17 05/26/18 Benzonatate [Tessalon] 200 mg PO Q8H PRN 05/26/18 05/26/18 Calcium Carbonate/Vitamin D3 1 tab PO TID 05/26/18 05/26/18 [Oyster Shell Calcium-Vit D Tab] Insulin LISPRO [Admelog] 2 - 12 unit SQ ACHS 05/26/18 05/26/18 Potassium Chloride [K-Tab ER] 10 meq PO DAILY 05/26/18 05/26/18 Warfarin [Coumadin] 6.5 mg PO DAILY 05/26/18 05/26/18 Previous Rx's Medication Instructions Recorded Budesonide [Uceris] 9 mg PO DAILY 30 Days #30 05/26/18 tabdr...er Gentamicin Sulfate Cream 0 gm TD BID 10 Days #1 tube 05/26/18 [Gentamicin Sulfate] Levofloxacin [Levaquin] 500 mg PO DAILY #5 tablet 05/26/18 Nystatin POWDER [Nystop] 1 appl TP BID #30 gm 05/26/18 Allergies Allergy/AdvReac Type Severity Reaction Status Date / Time No Known Allergies Allergy Verified 01/05/17 04:11 Limitations: ROS unobtainable due to patients medical condition Past Medical History - Past Medical History Medical history: Reports: DVT, dementia, diabetes, hyperlipidemia, kidney stones, other Surgical history: Reports: , cancer surgery (skin cancer), cholecystectomy, orthopedic, other (Hip fractures bilateral s/p repair; wrist surgery; left shoulder; D&C), other (ESWL for renal calculi) Psychiatric history: Reports: no psych history A P MECHANIC history: Reports: no A P MECHANIC history - Social History Smoking Status: Never smoker Smokeless Tobacco Status: No Alcohol use: Reports: none Drug use: Reports: none Physical Exam - General Limitations: altered mental status General appearance: alert, in distress - Head Head exam: atraumatic, normocephalic, normal inspection - Eye Eye exam: Present: normal appearance, PERRL, EOMI. Absent: scleral icterus, conjunctival injection - Neck Neck exam: Present: trachea midline - Chest Chest inspection: Present: normal inspection, symmetric chest wall rise - Respiratory Respiratory exam: Present: normal lung sounds bilaterally. Absent: respiratory distress, wheezes, stridor, accessory muscle use, prolonged expiratory phase - Cardiovascular Cardiovascular exam: Present: regular rate, normal rhythm, normal heart sounds, +S1, +S2. Absent: JVD, +S3, +S4 - Abdominal Exam Abdominal exam: Present: soft, tenderness, normal bowel sounds. Absent: distention, guarding, rebound, rigidity, organomegaly Abdominal tenderness: Present: LLQ, diffuse - Expanded Neurological Exam Patient oriented to: Present: person - Skin Skin exam: Present: warm, dry, intact, normal color. Absent: cyanosis, diaphoresis Course Course Narrative: Patient history, review systems, and physical exam is concerning for infectious process, ED sepsis order set initiated to assess for potential underlying pathology. Vital Signs Temperature 98.5 F 05/26/18 17:37 Pulse Rate 125 05/26/18 17:37 Respiratory Rate 18 05/26/18 17:37 Blood Pressure 138/54 05/26/18 17:37 O2 Sat by Pulse Oximetry 99 05/26/18 17:37 Temperature 98.5 F 05/26/18 17:37 Pulse Rate 126 05/26/18 18:09 Respiratory Rate 17 05/26/18 18:09 Blood Pressure 140/66 05/26/18 18:09 O2 Sat by Pulse Oximetry 98 05/26/18 18:09 Oxygen Delivery Oxygen Delivery Room Air Medical Decision Making - MDM Narrative Medical decision making narrative: Patient will be transferred to the care of overnight ED physician staff. Patient is hemodynamically stable at the time of transfer. - Lab Data Lab results reviewed: Yes I reviewed the patient's lab results. Result diagrams: 05/26/18 17:46 05/26/18 17:46 Lab Results 05/26/18 05/26/18 05/26/18 Range/Units 17:46 17:46 17:46 WBC 25.7 H (4.3-11.1) K/mcL RBC 5.34 H (3.82-4.97) M/mcL Hgb 14.7 (11.5-15.4) g/dL Hct 46.9 H (35.3-44.9) % MCV 87.8 (83.0-100.0) fL MCH 27.5 L (28.0-33.3) pg MCHC 31.3 L (31.6-35.5) g/dL RDW 14.3 (11.5-14.5) % Plt Count 324 (140-400) K/mcL MPV 10.6 (9.4-12.4) fL Immature Gran % 0.5 (0-4) % Seg Neutrophils % 88.2 % Lymphocytes % 4.6 % Monocytes % 6.4 % Eosinophils % 0.0 % Basophils % 0.3 % Neutrophils # 22.7 H (1.6-8.9) K/mcL Lymphocytes # 1.2 (0.6-4.6) K/mcL Monocytes # 1.6 H (0.0-1.3) K/mcL Eosinophils # 0.0 (0.0-0.6) K/mcL Basophils # 0.1 (0.0-0.2) K/mcL PT 43.9 H* (9.4-12.1) Seconds INR 3.9 APTT 49.1 H (26.0-36.0) Seconds VBG pH (7.32-7.42) pH Units VBG pCO2 (41-51) mmHg VBG pO2 (25-50) mmHg VBG HCO3 (21-27) mEq/L Sodium (136-145) mEq/L Potassium (3.5-5.1) mEq/L Chloride (98-107) mEq/L Carbon Dioxide (23-29) mEq/L BUN (6-20) mg/dL Creatinine (0.60-1.20) mg/dL Est GFR ( Amer) (> 60) Est GFR (Non-Af Amer) (> 60) BUN/Creatinine Ratio (6-26) Glucose (70-105) mg/dL Calculated Osmolality (280-300) Lactic Acid (0.5-2.2) mmol/L Calcium (8.6-10.3) mg/dL Phosphorus (2.7-4.5) mg/dL Magnesium (1.6-2.6) mg/dL Total Bilirubin (0.3-1.0) mg/dL Direct Bilirubin (0.0-0.2) mg/dL Indirect Bilirubin (0.0-1.2) mg/dL AST (13-39) Units/L ALT (7-52) Units/L Alkaline Phosphatase (34-104) Units/L Troponin I (< 0.04) ng/mL B-Natriuretic Peptide 43 (Less than 100) pg/mL Serum Total Protein (6.4-8.9) g/dL Albumin (3.5-5.7) g/dL Globulin (2.4-3.5) g/dL Albumin/Globulin Ratio (1.1-2.2) Lipase (11-82) Units/L Urine Color (Yellow) Urine Clarity (Clear) Urine pH (5.0-8.0) pH Units Ur Specific [place] (1.010-1.025) Urine Protein (Neg-Trace) mg/dL Urine Glucose (UA) (Normal) mg/dL Urine Ketones (Negative) mg/dL Urine Blood (Negative) Urine Nitrite (Negative) Urine Bilirubin (Negative) Urine Urobilinogen (Normal) mg/dL Ur Leukocyte Esterase (Negative) Blood Type Antibody Screen 05/26/18 05/26/18 05/26/18 Range/Units 17:46 17:46 18:22 WBC (4.3-11.1) K/mcL RBC (3.82-4.97) M/mcL Hgb (11.5-15.4) g/dL Hct (35.3-44.9) % MCV (83.0-100.0) fL MCH (28.0-33.3) pg MCHC (31.6-35.5) g/dL RDW (11.5-14.5) % Plt Count (140-400) K/mcL MPV (9.4-12.4) fL Immature Gran % (0-4) % Seg Neutrophils % % Lymphocytes % % Monocytes % % Eosinophils % % Basophils % % Neutrophils # (1.6-8.9) K/mcL Lymphocytes # (0.6-4.6) K/mcL Monocytes # (0.0-1.3) K/mcL Eosinophils # (0.0-0.6) K/mcL Basophils # (0.0-0.2) K/mcL PT (9.4-12.1) Seconds INR APTT (26.0-36.0) Seconds VBG pH (7.32-7.42) pH Units VBG pCO2 (41-51) mmHg VBG pO2 (25-50) mmHg VBG HCO3 (21-27) mEq/L Sodium 136 (136-145) mEq/L Potassium 4.5 (3.5-5.1) mEq/L Chloride 97 L (98-107) mEq/L Carbon Dioxide 21 L (23-29) mEq/L BUN 25 H (6-20) mg/dL Creatinine 0.75 (0.60-1.20) mg/dL Est GFR ( Amer) > 60 (> 60) Est GFR (Non-Af Amer) > 60 (> 60) BUN/Creatinine Ratio 33 H (6-26) Glucose 419 H (70-105) mg/dL Calculated Osmolality 304 H (280-300) Lactic Acid 3.0 H (0.5-2.2) mmol/L Calcium 9.6 (8.6-10.3) mg/dL Phosphorus 4.8 H (2.7-4.5) mg/dL Magnesium 1.8 (1.6-2.6) mg/dL Total Bilirubin 0.5 (0.3-1.0) mg/dL Direct Bilirubin 0.1 (0.0-0.2) mg/dL Indirect Bilirubin 0.4 (0.0-1.2) mg/dL AST 17 (13-39) Units/L ALT 11 (7-52) Units/L Alkaline Phosphatase 91 (34-104) Units/L Troponin I < 0.03 (< 0.04) ng/mL B-Natriuretic Peptide (Less than 100) pg/mL Serum Total Protein 8.0 (6.4-8.9) g/dL Albumin 4.1 (3.5-5.7) g/dL Globulin 3.9 H (2.4-3.5) g/dL Albumin/Globulin Ratio 1.1 (1.1-2.2) Lipase < 3 L (11-82) Units/L Urine Color (Yellow) Urine Clarity (Clear) Urine pH (5.0-8.0) pH Units Ur Specific [place] (1.010-1.025) Urine Protein (Neg-Trace) mg/dL Urine Glucose (UA) (Normal) mg/dL Urine Ketones (Negative) mg/dL Urine Blood (Negative) Urine Nitrite (Negative) Urine Bilirubin (Negative) Urine Urobilinogen (Normal) mg/dL Ur Leukocyte Esterase (Negative) Blood Type A POSITIVE Antibody Screen NEGATIVE 05/26/18 05/26/18 Range/Units 19:05 19:26 WBC (4.3-11.1) K/mcL RBC (3.82-4.97) M/mcL Hgb (11.5-15.4) g/dL Hct (35.3-44.9) % MCV (83.0-100.0) fL MCH (28.0-33.3) pg MCHC (31.6-35.5) g/dL RDW (11.5-14.5) % Plt Count (140-400) K/mcL MPV (9.4-12.4) fL Immature Gran % (0-4) % Seg Neutrophils % % Lymphocytes % % Monocytes % % Eosinophils % % Basophils % % Neutrophils # (1.6-8.9) K/mcL Lymphocytes # (0.6-4.6) K/mcL Monocytes # (0.0-1.3) K/mcL Eosinophils # (0.0-0.6) K/mcL Basophils # (0.0-0.2) K/mcL PT (9.4-12.1) Seconds INR APTT (26.0-36.0) Seconds VBG pH 7.22 L (7.32-7.42) pH Units VBG pCO2 47 (41-51) mmHg VBG pO2 166 H (25-50) mmHg VBG HCO3 19 L (21-27) mEq/L Sodium (136-145) mEq/L Potassium (3.5-5.1) mEq/L Chloride (98-107) mEq/L Carbon Dioxide (23-29) mEq/L BUN (6-20) mg/dL Creatinine (0.60-1.20) mg/dL Est GFR ( Amer) (> 60) Est GFR (Non-Af Amer) (> 60) BUN/Creatinine Ratio (6-26) Glucose (70-105) mg/dL Calculated Osmolality (280-300) Lactic Acid (0.5-2.2) mmol/L Calcium (8.6-10.3) mg/dL Phosphorus (2.7-4.5) mg/dL Magnesium (1.6-2.6) mg/dL Total Bilirubin (0.3-1.0) mg/dL Direct Bilirubin (0.0-0.2) mg/dL Indirect Bilirubin (0.0-1.2) mg/dL AST (13-39) Units/L ALT (7-52) Units/L Alkaline Phosphatase (34-104) Units/L Troponin I (< 0.04) ng/mL B-Natriuretic Peptide (Less than 100) pg/mL Serum Total Protein (6.4-8.9) g/dL Albumin (3.5-5.7) g/dL Globulin (2.4-3.5) g/dL Albumin/Globulin Ratio (1.1-2.2) Lipase (11-82) Units/L Urine Color Yellow (Yellow) Urine Clarity Turbid A (Clear) Urine pH 5.5 (5.0-8.0) pH Units Ur Specific [place] 1.022 (1.010-1.025) Urine Protein Negative (Neg-Trace) mg/dL Urine Glucose (UA) >=1000 H (Normal) mg/dL Urine Ketones 80 H (Negative) mg/dL Urine Blood Small H (Negative) Urine Nitrite Positive A (Negative) Urine Bilirubin Negative (Negative) Urine Urobilinogen Normal (Normal) mg/dL Ur Leukocyte Esterase Large H (Negative) Blood Type Antibody Screen - EKG Data EKG #1 EKG attestation: Yes I reviewed and interpreted this EKG. EKG results narrative: Patient EKG shows a sinus tachycardia with a normal axis. Heart rate is 1 27 bpm, TN interval of 164 ms, QRS duration of 80 ms, QT/QTc interval of 276/402 ms respectively. Although computer read as normal, there appears to be QT interval prolongation. There are no acute ST segment depressions or elevations, pathologic Q waves, abnormal T-wave inversions, or any other signs of acute ischemic change. Currently there is no prior EKG available for comparison. Attestation Statement - Attestation Attestation: I examined this patient and my medical decision-making was reviewed with the Resident Physician. I agree with the documented findings, disposition and treatment plan as described except to the extent set forth below. 57-year-old female with history of multiple sclerosis presents ED because of nausea vomiting and diarrhea and diffuse abdominal pain. Uncertain as to the onset of a she is been vomiting most the day today and has had dark stools and noted some blood in the diarrhea. No systemic fevers. Denies any other focal complaints. She presents with altered mental status. Patient keeps her eyes closed and does not open on command. He is membranes very dry. Neck is supple trachea midline. Chest clear to auscultation bilaterally. Cardiac exam tachycardic, regular. Abdomen bowel sounds are diminished in tenderness noted diffusely throughout the abdomen. Abdomen nondistended. No CVA tenderness. Skin exam is grossly unremarkable. She does follow commands. IV was established she was given a bolus of crystalloid with improvement of her mental status. She remains tachycardic. She has markedly leukocytosis, mild elevation of lactate and hyperglycemia. Renal function is preserved. After adequate IV hydration she was sent for IV contrast CT of her abdomen to rule out ischemic bowel or other surgical pathologies. Care turned over to Dr. Guthrie.
[2018-05-26 18:04] LABS: Basophils # 0.1 K/mcL (0.0-0.2); Basophils % 0.3 %; Hematocrit 46.9 % (35.3-44.9); Hemoglobin 14.7 g/dL (11.5-15.4); Immature Granulocytes % 0.5 % (0-4); Lymphocytes # 1.2 K/mcL (0.6-4.6); Lymphocytes % 4.6 %; Mean Corpuscular HGB Conc 31.3 g/dL (31.6-35.5); Mean Corpuscular Hemoglobin 27.5 pg (28.0-33.3); Mean Corpuscular Volume 87.8 fL (83.0-100.0); Mean Platelet Volume 10.6 fL (9.4-12.4); Monocytes # 1.6 K/mcL (0.0-1.3); Monocytes % 6.4 %; Platelet Count 324 K/mcL (140-400); Red Blood Count 5.34 M/mcL (3.82-4.97); Red Cell Distribution Width 14.3 % (11.5-14.5); Segmented Neutrophils % 88.2 %
[2018-05-26 18:05] LABS: Neutrophils # 22.7 K/mcL (1.6-8.9)
[2018-05-26 18:13] LABS: INR 3.9
[2018-05-26 18:15] LABS: Activated Partial Thrombo Time 49.1 Seconds (26.0-36.0)
[2018-05-26 18:26] LABS: Prothrombin Time 43.9 Seconds (9.4-12.1)
[2018-05-26 18:35] LABS: Troponin I < 0.03 ng/mL (< 0.04)
[2018-05-26 18:38] LABS: Alanine Aminotransferase 11 Units/L (7-52); Albumin 4.1 g/dL (3.5-5.7); Albumin/Globulin Ratio 1.1 (1.1-2.2); Alkaline Phosphatase 91 Units/L (34-104); Aspartate Amino Transferase 17 Units/L (13-39); BUN/Creatinine Ratio 33 (6-26); Bilirubin,Direct 0.1 mg/dL (0.0-0.2); Bilirubin,Indirect 0.4 mg/dL (0.0-1.2); Bilirubin,Total 0.5 mg/dL (0.3-1.0); Blood Urea Nitrogen 25 mg/dL (6-20); Calcium 9.6 mg/dL (8.6-10.3); Carbon Dioxide 21 mEq/L (23-29); Chloride 97 mEq/L (98-107); Globulin 3.9 g/dL (2.4-3.5); Glucose 419 mg/dL (70-105); Lipase < 3 Units/L (11-82); Magnesium 1.8 mg/dL (1.6-2.6); Osmolality,Calculated 304 (280-300); Phosphorous 4.8 mg/dL (2.7-4.5); Potassium 4.5 mEq/L (3.5-5.1); Sodium 136 mEq/L (136-145); eGFR For Non-African Americans > 60 (> 60)
[2018-05-26 19:16] LABS: Bilirubin,Urine Negative (Negative); Blood,Urine Small (Negative); Clarity,Urine Turbid (Clear); Color,Urine Yellow (Yellow); Glucose,Urine (UA) >=1000 mg/dL (Normal); Ketones,Urine 80 mg/dL (Negative); Leukocyte Esterase,Urine Large (Negative); Nitrite,Urine Positive (Negative); PH,Urine 5.5 pH Units (5.0-8.0); Protein,Urine Negative (Neg-Trace); Specific Gravity,Urine 1.022 (1.010-1.025); Urobilinogen,Urine Normal (Normal)
[2018-05-26 19:19] LABS: Bacteria,Urine Many per hpf (None-Few); Hyaline Casts,Urine Few per lpf (None-Few); Squamous Epithelial Cell,Urine Many per lpf (None-Few); WBC,Urine TNTC per hpf (0-3)
[2018-05-26 19:29] LABS: VBG HCO3 19 mEq/L (21-27); VBG PCO2 47 mmHg (41-51); VBG PH 7.22 pH Units (7.32-7.42); VBG PO2 166 mmHg (25-50)
[2018-05-26 19:34] LABS: Mucus,Urine Many (Few); Yeast,Urine Many per hpf (None Seen)
[2018-05-26] MEDS ORDERED: *HR* Dextrose 50 % in Water (Syg) 50 ML SYRINGE IVP PRN ×2 (20:26→22:31)
[2018-05-26] MEDS ORDERED: Insulin Human Regular 100 UNIT in 0.9 % Sodium Chloride 100 ML IVC SCH ×2 (20:30→22:45)
[2018-05-26] MEDS ORDERED: Insulin LISPRO 300 UNITS/3 ML VIAL SQ PRN (22:31)
[2018-05-26] MEDS ORDERED: D5% in 0.45% NACL 1,000 ML IVC PRN (22:31)
[2018-05-26] MEDS ORDERED: D5% in 0.45% NACL w KCl 20 MEQ/1,000 ML MLS IVC PRN (22:31)
[2018-05-26] MEDS ORDERED: Ketorolac 15 MG/ML VIAL IVP PRN (22:43)
[2018-05-26] MEDS ORDERED: Naloxone 0.4 MG/ML INJ IVP PRN (22:43)
[2018-05-26] MEDS ORDERED: OXYCODONE Oral CONC 10 MG/0.5 ML ORAL.SYG SL PRN (22:43)
[2018-05-26] MEDS ORDERED: 0.9 % Sodium Chloride w KCl 20 MEQ/1,000 ML MLS IVC SCH (22:45)
[2018-05-26] MEDS ORDERED: 0.45 % Sodium Chloride w/KCl 20 MEQ/1,000 ML MLS IVC SCH (22:45)
[2018-05-26] MEDS ORDERED: 0.9 % Sodium Chloride 1,000 ML IVC SCH (22:45)
[2018-05-26] MEDS ORDERED: Ondansetron 4 MG/2 ML VIAL IVP PRN (22:48)
--- NOTE | 2018-05-26 23:06 | Internal Med History&Physical ---
<FrankMichelle garza - Last Filed: 05/27/18 00:11> Date of Encounter: 05/27/18 Time of Encounter: 23:01 Internal Medicine - H&P: HPI Chief complaint: nausea/vomting Admitted From: Emergency Dept Plans for Post Hospital Care: [facility] History of present illness: Ms. Boyd is a 57 year old female with past medical history of type I diabetes, multiple sclerosis, history of DVT, history of chronic indwelling Rhodes with recurrent UTI. Patient is a resident of [facility] and has been living there for about 4 years now. Her comes in to visit her when he can. Patient was brought to the emergency department today which chief complaint of nausea, vomiting, diarrhea that she states has been going on for about 2 days. Patient is a very poor historian at baseline and is unable to answer a lot of questions that are asked to her. She also complains of diffuse abdominal pain. She is to have chronic indwelling Rhodes catheter secondary to neurogenic bladder, but the Rhodes catheter was removed due to recurrent UTIs. She states that she has not had a Rhodes catheter in for a while, but could not specify how long. At the custodial, she reportedly had sugars as high as 430s with constant diarrhea. She does report intermittent fevers and chills. She denies chest pain or shortness of breath. She was not able to give much history beyond answering simple review of systems questions. Her was present at bedside, but however was not able to give a good history either, as he was at work when the events occurred at the custodial. Past Med Surg Social Fam HX - Past Medical History Medical history: DVT, dementia, diabetes, hyperlipidemia, kidney stones, other Additional medical history: MS Psychiatric history: no psych history - Past Surgical History Surgical History: , cancer surgery (skin cancer), cholecystectomy, orthopedic, other (Hip fractures bilateral s/p repair; wrist surgery; left shoulder; D&C), other (ESWL for renal calculi) Additional surgical history: tumor removal, pin in bilateral hips, wrist surgery, left shoulder manipulation, D&C - Social History Smoking Status: Never smoker Smokeless Tobacco Status: No Alcohol use: none Drug use: none - Family History Mother Family Member Ethnicity: Non- Living Status: Hx Family Cancer: Yes Father Living Status: Hx Family Cardiac Disorders: Yes Internal Medicine - H&P: Meds Alendronate Sodium [Fosamax] 70 mg PO MO 01/13/16 [History] Ascorbic Acid [Vitamin C] 500 mg PO BID 01/13/16 [History] Calcium Carbonate/Vitamin D3 [Calcium 500 + Vit D Caplet] 1 tab PO TID 01/13/16 [History] Docusate Sodium [Dok] 100 mg PO BID 01/13/16 [History] Ergocalciferol (VITAMIN D2) [Vitamin D2 (50,000 UNIT)] 50,000 unit PO GALLEGOS 01/13/16 [History] Insulin Glargine [Lantus] 15 unit SQ QAM 01/13/16 [History] Loratadine [Claritin] 10 mg PO DAILY 01/13/16 [History] Ondansetron HCl [Zofran] 4 mg PO Q6H PRN 01/13/16 [History] Polyethylene Glycol 3350 [MiraLAX] 17 gm PO DAILY 01/13/16 [History] Guaifenesin [Mucinex] 600 mg PO Q12H 09/05/17 [History] Ipratropium/Albuterol Neb [Duoneb] 1 vial IH Q4H PRN 09/05/17 [History] Benzonatate [Tessalon] 200 mg PO Q8H PRN 05/26/18 [History] Budesonide [Uceris] 9 mg PO DAILY 30 Days #30 tabdr...er 05/26/18 [Rx] Calcium Carbonate/Vitamin D3 [Oyster Shell Calcium-Vit D Tab] 1 tab PO TID 05/26/18 [History] Gentamicin Sulfate Cream [Gentamicin Sulfate] 0 gm TD BID 10 Days #1 tube 05/26/18 [Rx] Insulin LISPRO [Admelog] 2 - 12 unit SQ ACHS 05/26/18 [History] Levofloxacin [Levaquin] 500 mg PO DAILY #5 tablet 05/26/18 [Rx] Nystatin POWDER [Nystop] 1 appl TP BID #30 gm 05/26/18 [Rx] Potassium Chloride [K-Tab ER] 10 meq PO DAILY 05/26/18 [History] Warfarin [Coumadin] 6.5 mg PO DAILY 05/26/18 [History] Allergy/AdvReac Type Severity Reaction Status Date / Time No Known Allergies Allergy Verified 01/05/17 04:11 All Systems PM: A 10-system review of systems was performed and is negative for pertinent findings except as documented above in the HPI. - Constitutional Constitutional: as per HPI - EENT Eyes: as per HPI Ears: as per HPI Nose, mouth and throat: as per HPI - Breasts Breasts: as per HPI - Cardiovascular Cardiovascular ROS IM: as per HPI - Respiratory Respiratory: as per HPI - Gastrointestinal Gastrointestinal: as per HPI - Genitourinary Genitourinary: as per HPI Menstruation: as per HPI - Musculoskeletal Musculoskeletal ROS IM: as per HPI - Integumentary Integumentary IM: as per HPI - Neurological Neurological ROS: as per HPI - Psychiatric Psychiatric: as per HPI - Endocrine Endocrine IM: as per HPI - Hematologic/Lymphatic Hematologic/Lymphatic: as per HPI - Allergic/Immunologic Allergic/Immunologic: as per HPI - Constitutional Vitals: Temp Pulse Resp BP Pulse Ox 98.5 F 117 21 132/71 96 05/26/18 17:37 05/26/18 20:21 05/26/18 20:21 05/26/18 20:21 05/26/18 20:21 General appearance: Present: A&O X 3 Exam: Patient is laying in bed, appears anxious, appears very lethargic. She is unable to answer most questions. She appears very dry and her lips are extremely chapped. - Head Head exam: Present: atraumatic, normocephalic - Eye Eye exam: Present: PERRL Pupils: Present: PERRL - ENT ENT exam: Present: mucous membranes dry Additional comments: Lips chapped, oropharynx appears extremely dry. - Neck Neck exam general surgery: Present: supple, trachea midline - Respiratory Respiratory exam: Present: CTAB - Cardiovascular Cardiovascular exam: Present: +S1, +S2, tachycardia. Absent: systolic murmur - GI/Abdominal GI/Abdominal exam: Present: hypoactive bowel sounds Additional comments: Soft, distended, tenderness to palpation in all quadrants. Hypoactive bowel sounds present - Extremities Exam Extremities exam: Absent: cyanotic, pedal edema Additional comments: bilateral lower extremities appear hypotonic. patient able to move her toes, but cannot move her legs - Neurological Exam Neurological exam: Present: alert, oriented X3. Absent: facial droop, speech deficit Internal Med - H&P Results - Labs CBC & Chem 7: 05/26/18 17:46 05/26/18 17:46 Labs: Short CBC 05/26/18 Range/Units 17:46 WBC 25.7 H (4.3-11.1) K/mcL Hgb 14.7 (11.5-15.4) g/dL Hct 46.9 H (35.3-44.9) % Plt Count 324 (140-400) K/mcL Neutrophils # 22.7 H (1.6-8.9) K/mcL BMP 05/26/18 17:46 Sodium 136 Potassium 4.5 Chloride 97 L Carbon Dioxide 21 L BUN 25 H Creatinine 0.75 Glucose 419 H Calcium 9.6 Cardiac Enzymes 05/26/18 Range/Units 17:46 Troponin I < 0.03 (< 0.04) ng/mL Liver Function 05/26/18 Range/Units 17:46 Total Bilirubin 0.5 (0.3-1.0) mg/dL Direct Bilirubin 0.1 (0.0-0.2) mg/dL AST 17 (13-39) Units/L ALT 11 (7-52) Units/L Alkaline Phosphatase 91 (34-104) Units/L Albumin 4.1 (3.5-5.7) g/dL Urine 05/26/18 Range/Units 19:05 Urine Color Yellow (Yellow) Urine Clarity Turbid A (Clear) Urine pH 5.5 (5.0-8.0) pH Units Ur Specific [place] 1.022 (1.010-1.025) Urine Protein Negative (Neg-Trace) mg/dL Urine Glucose (UA) >=1000 H (Normal) mg/dL - ABG Interpretation ABG results: 05/26/18 19:26 VBG pH 7.22 L VBG pCO2 47 VBG pO2 166 H VBG HCO3 19 L - Impressions ITS Impressions Chest X-Ray 05/26/18 17:50 IMPRESSION: Stable portable study. D/ / Meera Parker Cha, MD / Meera Parker Cha, MD Interpreting Provider: Meera Parker Cha, MD - Assessment and plan (1) DKA (diabetic ketoacidoses) Current Visit: No Status: Resolved Assessment and plan: 57-year-old female with history of type I diabetes, multiple sclerosis who lives at [facility] comes to the ED with complaint of nausea, vomiting, diarrhea for about 2 days. Detailed history could not be obtained because patient is a very poor historian. ABG showed pH of 7.22, blood glucose was in 400s, patient had anionic gap of 18. Etiology of DKA likely secondary to UTI. CXR unremarkable. In ED, Patient received 2 L fluid bolus and was started on insulin gtt patient meets severe sepsis criteria with tachycardia, elevated WBC, lactic acidosis. source of infection: UTI. Plan: NPO insulin gtt per DKA protocol. Nausea and pain control Blood cultures x2, urine culture pending. lactic acid trending down from 3.0 to 2.8. re check with morning labs. vancomycin, levaquin day 1. Antibiotic choice based on sensitivity report from last urine culture. Qualifiers: Diabetes mellitus type: type 1 Diabetes mellitus complication detail: [facility] coma Qualified Code(s): E10.10 - Type 1 diabetes mellitus with ketoa cidosis without coma (2) Severe sepsis Current Visit: Yes Status: Acute Assessment and plan: plan as above (3) Multiple sclerosis Current Visit: No Status: Chronic Assessment and plan: Restart home medications after DKA has resolved (4) Insulin dependent diabetes mellitus Current Visit: No Status: Chronic Assessment and plan: Plan as #1 above (5) Neurogenic bladder Current Visit: No Status: Chronic (6) Recurrent UTI Current Visit: No Status: Chronic Assessment and plan: History of recurrent UTIs secondary to indwelling Rhodes catheter due to multiple sclerosis. Past urine cultures have been positive for Citrobacter, ENterococus, Klebsiella, Pseudomonas, MRSA. (7) Supratherapeutic INR Current Visit: No Status: Resolved Assessment and plan: INR on admission was 3.9, likely secondary to DKA. Hold Coumadin for now, and continue to monitor INR. Will recheck with morning labs. (8) History of DVT (deep vein thrombosis) Current Visit: No Status: Chronic Assessment and plan: Plan as above (9) DVT prophylaxis Current Visit: No Status: Acute Assessment and plan: EPCDs on warfarin at home for history of DVT, hold for now due to supra therapeutic INR - Time Spent With Patient Total time spent is greater than 50% in coordination of care (as documented) at patient's floor/unit and/or counseling patient: <Nish Hodgson - Last Filed: 05/27/18 03:02> Date of Encounter: 05/27/18 Time of Encounter: 01:45 - Constitutional Constitutional: chills, fever(s) - EENT Nose, mouth and throat: no sore throat - Cardiovascular Cardiovascular ROS IM: no chest pain, no dyspnea - Respiratory Respiratory: no cough, no chest congestion, no excessive phlegm production, no change in phlegm color - Gastrointestinal Gastrointestinal: cramping, diarrhea, nausea, vomiting, no hematemesis, no hematochezia, no melena - Genitourinary Genitourinary: no dysuria, no flank pain - Integumentary Integumentary IM: no rash - Endocrine Endocrine IM: polydipsia, polyuria - Allergic/Immunologic Allergic/Immunologic: GI upset with certain foods - Constitutional Vitals: Temp Pulse Resp BP Pulse Ox 97.6 F 107 18 105/66 96 05/26/18 23:51 05/27/18 00:07 05/26/18 23:51 05/26/18 23:51 05/26/18 23:51 General appearance: Present: cooperative, A&O X 3 Exam: Not very compliant with history and exam - Eye Eye exam: Present: PERRL. Absent: scleral icterus - Neck Neck exam general surgery: Present: supple. Absent: tenderness - Respiratory Respiratory exam: Present: CTAB. Absent: chest wall tenderness, rales, respiratory distress, rhonchi, wheezes - Cardiovascular Cardiovascular exam: Present: RRR, +S1, +S2, tachycardia (HR 100's) - GI/Abdominal GI/Abdominal exam: Present: tenderness (mild diffuse tenderness), no peritoneal signs. Absent: guarding, hepatomegaly, mass, rebound, splenomegaly - Extremities Exam Extremities exam: Present: warm, radial pulses palpable and symmetrical. Absent: calf tenderness, tenderness - Back Exam Back exam: Absent: CVA tenderness (L), CVA tenderness (R) - Neurological Exam Neurological exam: Present: alert, oriented X3 - Psychiatric Psychiatric exam: Present: anxious - Skin Skin exam: Present: dry, intact, warm. Absent: rash Internal Med - H&P Results - Labs CBC & Chem 7: 05/26/18 17:46 05/27/18 00:32 Labs: Short CBC 05/26/18 Range/Units 17:46 WBC 25.7 H (4.3-11.1) K/mcL Hgb 14.7 (11.5-15.4) g/dL Hct 46.9 H (35.3-44.9) % Plt Count 324 (140-400) K/mcL Neutrophils # 22.7 H (1.6-8.9) K/mcL BMP 05/26/18 05/27/18 17:46 00:32 Sodium 136 142 Potassium 4.5 3.4 L Chloride 97 L 110 H Carbon Dioxide 21 L 19 L BUN 25 H 24 H Creatinine 0.75 0.64 Glucose 419 H 138 H Calcium 9.6 8.4 L Cardiac Enzymes 05/26/18 Range/Units 17:46 Troponin I < 0.03 (< 0.04) ng/mL Liver Function 05/26/18 Range/Units 17:46 Total Bilirubin 0.5 (0.3-1.0) mg/dL Direct Bilirubin 0.1 (0.0-0.2) mg/dL AST 17 (13-39) Units/L ALT 11 (7-52) Units/L Alkaline Phosphatase 91 (34-104) Units/L Albumin 4.1 (3.5-5.7) g/dL Urine 05/26/18 Range/Units 19:05 Urine Color Yellow (Yellow) Urine Clarity Turbid A (Clear) Urine pH 5.5 (5.0-8.0) pH Units Ur Specific [place] 1.022 (1.010-1.025) Urine Protein Negative (Neg-Trace) mg/dL Urine Glucose (UA) >=1000 H (Normal) mg/dL - ABG Interpretation ABG results: 05/26/18 05/27/18 19:26 01:31 VBG pH 7.22 L 7.29 L VBG pCO2 47 40 L VBG pO2 166 H 133 H VBG HCO3 19 L 19 L - Impressions ITS Impressions Chest X-Ray 05/26/18 17:50 IMPRESSION: Stable portable study. D/ / Meera Parker Cha, MD / Meera Parker Cha, MD Interpreting Provider: Meera Parker Cha, MD - Time Spent With Patient Total time spent is greater than 50% in coordination of care (as documented) at patient's floor/unit and/or counseling patient: - Attending Attestation I discussed the patient EK[place], past medical history, review of systems, lab data, and exam findings with Dr. Ospina. I then saw, interviewed, and examined patient independently as well. Patient is not very compliant with history or physical. She does not offer much information even with prompting questions. She does confirm diarrhea and abdominal cramping the couple last couple days. She has been on recurrent antibiotics in the recent past for UTI. Her urinalysis does suggest UTI. We will therefore keep her on antibiotics for UTI and sepsis likely secondary UTI. Additionally, we will check a stool sample for C. Difficile colitis given her history of diarrhea and recent antibiotic use as well. Regarding her DKA, her glucose has almost normalized and her gap is nearly closed. She can likely be switched to subcutaneous insulin later this morning. Other than my above comments and noted physical exam findings, I agree with Dr. Sanchez's assessment and plan.
[2018-05-26] MEDS ORDERED: Ipratropium/Albuterol Neb 3 ML IH PRN (23:19)
[2018-05-27] MEDS ORDERED: Levofloxacin 750 MG/150 ML 750 MG/150 ML BAG IVPB SCH (00:15)
[2018-05-27 01:35] LABS: VBG HCO3 19 mEq/L (21-27); VBG PCO2 40 mmHg (41-51); VBG PH 7.29 pH Units (7.32-7.42); VBG PO2 133 mmHg (25-50)
[2018-05-27 01:49] LABS: BUN/Creatinine Ratio 38 (6-26); Blood Urea Nitrogen 24 mg/dL (6-20); Calcium 8.4 mg/dL (8.6-10.3); Carbon Dioxide 19 mEq/L (23-29); Chloride 110 mEq/L (98-107); Glucose 138 mg/dL (70-105); Osmolality,Calculated 300 (280-300); Potassium 3.4 mEq/L (3.5-5.1); Sodium 142 mEq/L (136-145); eGFR For Non-African Americans > 60 (> 60)
[2018-05-27 03:34] LABS: VBG HCO3 20 mEq/L (21-27); VBG PCO2 34 mmHg (41-51); VBG PH 7.37 pH Units (7.32-7.42); VBG PO2 118 mmHg (25-50)
[2018-05-27 03:35] LABS: Basophils % 0.2 %; Eosinophils % 0.1 %; Hematocrit 36.4 % (35.3-44.9); Hemoglobin 11.7 g/dL (11.5-15.4); Immature Granulocytes % 0.6 % (0-4); Immature Platelets 2.4 % (1.1-6.1); Lymphocytes # 2.6 K/mcL (0.6-4.6); Lymphocytes % 13.8 %; Mean Corpuscular HGB Conc 32.1 g/dL (31.6-35.5); Mean Corpuscular Volume 87.1 fL (83.0-100.0); Mean Platelet Volume 10.4 fL (9.4-12.4); Monocytes # 1.8 K/mcL (0.0-1.3); Monocytes % 9.6 %; Platelet Count 242 K/mcL (140-400); Red Blood Count 4.18 M/mcL (3.82-4.97); Red Cell Distribution Width 14.5 % (11.5-14.5); Segmented Neutrophils % 75.7 %
[2018-05-27 03:51] LABS: INR 5.5; Prothrombin Time 62.3 Seconds (9.4-12.1)
[2018-05-27 03:52] LABS: BUN/Creatinine Ratio 40 (6-26); Blood Urea Nitrogen 23 mg/dL (6-20); Calcium 8.1 mg/dL (8.6-10.3); Carbon Dioxide 19 mEq/L (23-29); Chloride 110 mEq/L (98-107); Glucose 139 mg/dL (70-105); Osmolality,Calculated 296 (280-300); Sodium 140 mEq/L (136-145); eGFR For Non-African Americans > 60 (> 60)
[2018-05-27 03:53] LABS: Magnesium 1.5 mg/dL (1.6-2.6); Phosphorous 2.7 mg/dL (2.7-4.5)
[2018-05-27] MEDS ORDERED: D5% in Water 1,000 ML IVC PRN (04:14)
[2018-05-27] MEDS ORDERED: Dextrose Gel 15 GM/37.5 ML TUBE PO PRN ×2 (04:14)
[2018-05-27] MEDS ORDERED: *HR* Dextrose 50 % in Water (Syg) 50 ML SYRINGE IVP PRN (04:14)
--- NOTE | 2018-05-27 04:20 | Sepsis Event Note ---
Sepsis Reassessment Note - Evaluation Sepsis Screen: No Definite Risk Current Stage of Sepsis: sepsis Possible Source of Sepsis: genitourinary - Focused Exam Date of Encounter: 05/27/18 Time of Encounter: 04:19 Vital Signs: Vital Signs Temp Pulse Resp BP Pulse Ox 05/27/18 03:17 97.4 F L 104 22 117/56 97 05/27/18 00:07 107 05/26/18 23:51 97.6 F 105 18 105/66 96 05/26/18 23:15 19 100/76 05/26/18 20:21 117 21 132/71 96 05/26/18 18:09 126 17 140/66 98 05/26/18 17:37 98.5 F 125 18 138/54 99 Respiratory Exam: Present: CTA bilaterally Cardiovascular Exam: Present: tachycardia Capillary Refill: < 2 seconds Peripheral Pulse Strength: 2+ slightly diminished Peripheral Pulse Location: Radial Skin Exam: pale - Reassessment Comments Comments: currently septic. Lactic acid decreased from 3 to now 1.8
[2018-05-27] MEDS: Insulin DETEMIR 100 UNIT/ML X5UNITS SQ SCH ×2 (05:05→08:14)
[2018-05-27] MEDS ORDERED: *HR* Heparin 5,000 UNIT/ML VIAL SQ SCH (06:00)
[2018-05-27 07:04] LABS: Estimated Average Glucose 214 mg/dl; Hemoglobin A1C 9.1 %
[2018-05-27 07:59] LABS: BUN/Creatinine Ratio 36 (6-26); Blood Urea Nitrogen 21 mg/dL (6-20); Carbon Dioxide 20 mEq/L (23-29); Chloride 111 mEq/L (98-107); Glucose 131 mg/dL (70-105); Osmolality,Calculated 291 (280-300); Sodium 138 mEq/L (136-145); eGFR For Non-African Americans > 60 (> 60)
[2018-05-27] MEDS: Insulin LISPRO 300 UNITS/3 ML VIAL SQ SCH ×4 (08:14→20:37)
[2018-05-27 08:57] LABS: VBG HCO3 19 mEq/L (21-27); VBG PCO2 34 mmHg (41-51); VBG PH 7.37 pH Units (7.32-7.42); VBG PO2 190 mmHg (25-50)
--- NOTE | 2018-05-27 09:47 | Internal Med Progress Note ---
Addendum entered and electronically signed by Yogesh Zavala 06/01/18 10:39: Original Note: <LucasYogesh Osborne - Last Filed: 05/27/18 11:36> Hospitalist Progress Note - Encounter Date of Encounter: 05/27/18 Time of Encounter: 09:42 - Subjective Interval History: Pt is a 57yo female seen at bedside. She was admitted 05/27 with a PMH of T1DM, MS, hx of DVT on coumadin, has chronic indwelling clark. Pt is a resident of [facility], has been there for 4 years. She had a chronic indwelling clark which was placed for neurogenic bladder. She was brought to the ER with the cc of nausea, vomting, diarrhea and had it for a few days. She is a poor historian and all this info is gathered from notes. She apperently had c/o diffuse abdominal pain but denies any compalints of abd pain, N/V/D to me. She states she has has multiple rcurrent UTI's and had a straight cath in but has been in adult diapers. According to the H&P, the pt had BG up to 430's with constant diarrhea. Reports of intermittent fever/chills. Overall the pt is a very poor historian and gives a poor history of what happened. - Exam Vitals: Temp Pulse Resp BP Pulse Ox 99.7 F H 97 20 98/47 96 05/27/18 07:10 05/27/18 07:10 05/27/18 07:10 05/27/18 07:10 05/27/18 07:10 Exam: general - NAD, AOx2, laying in bed HEENT - moist mucus membranes, NCAT lungs - ctab, no wheeze/rhonchi/rales heart - s1s2, cta no MRG RRR Abd - TTP in periumbilical region, overweight, no rebound/guarding extremities - normal inspection neuro - sesation intact, no FND skin - intact, no rash/ulcer - Assessment and Plan (1) DKA (diabetic ketoacidoses) Current Visit: Yes Status: Acute Assessment and Plan: 57-year-old female with history of type I diabetes, multiple sclerosis who lives at [facility] comes to the ED with complaint of nausea, vomiting, diarrhea for about 2 days. - pt is an extremely poor historian ABG on admission - pH 7.22 - pH this morning 7.37 BG on admission 419 - BG this morning 131 Anion gap of 18 on admission -gap this morning 7 DKA most likely secondary to UTI - pt has a hx of MRSA UTI - has also grown citrobacter and psuedomonas In the ED, pt got fluids 2L bolus and insulin drip - met severe sepsis criteria on admission with tachycardia, elevated WBC, lactic acidosis. source of infection: UTI. - on admission lactic acid was 3, repeat 1.8 Currently meets sepsis criteria - WBC count 18.5 - HR 97 - t: 99.7 - RR 20 Plan: - diabetic diet - insulin drip d/c - on levemir 10U and LDSS - zofran prn nausea - blood cx pending - urine cx pending - trending lactic acid - vancomycin, levaquin day 1 - dispo: toleration of PO intake, resolution of sepsis (2) Multiple sclerosis Current Visit: Yes Status: Acute Assessment and Plan: Resume home meds when DKA resolves. - chronic (3) T1DM (type 1 diabetes mellitus) Current Visit: Yes Status: Acute Assessment and Plan: See plan as above for dka (4) Neurogenic bladder Current Visit: Yes Status: Acute Assessment and Plan: Chronic - has had indwelling clark, which is removed (5) Supratherapeutic INR Current Visit: Yes Status: Acute Assessment and Plan: INR on admission 3.9 - likely secondary to DKA vs sepsis Repeat INR 5.5 with monring labs Plan: - continue to monitor PT/INR - Coumadin held (6) History of DVT (deep vein thrombosis) Current Visit: Yes Status: Acute Assessment and Plan: On Coumadin, currently held (7) DVT prophylaxis Current Visit: Yes Status: Acute Assessment and Plan: SCD (8) Osteoporosis Current Visit: No Status: Chronic Assessment and Plan: On Alendronate -chronic (9) Severe sepsis Current Visit: Yes Status: Acute Assessment and Plan: Resolving - see plan as above for DKA (10) Allergic rhinitis Current Visit: Yes Status: Acute Assessment and Plan: On loratadine - chronic - Time Spent with Patient Total time spent is greater than 50% in coordination of care (as documented) at patient's floor/unit and/or counseling patient: Internal Medicine: Result - Labs CBC & Chem 7: 05/27/18 03:10 05/27/18 06:52 Labs: Short CBC 05/26/18 05/27/18 Range/Units 17:46 03:10 WBC 25.7 H 18.5 H (4.3-11.1) K/mcL Hgb 14.7 11.7 D (11.5-15.4) g/dL Hct 46.9 H 36.4 (35.3-44.9) % Plt Count 324 242 (140-400) K/mcL Neutrophils # 22.7 H 14.0 H (1.6-8.9) K/mcL BMP 05/26/18 05/27/18 05/27/18 17:46 00:32 03:10 Sodium 136 142 140 Potassium 4.5 3.4 L 4.0 Chloride 97 L 110 H 110 H Carbon Dioxide 21 L 19 L 19 L BUN 25 H 24 H 23 H Creatinine 0.75 0.64 0.58 L Glucose 419 H 138 H 139 H Calcium 9.6 8.4 L 8.1 L 05/27/18 06:52 Sodium 138 Potassium 4.0 Chloride 111 H Carbon Dioxide 20 L BUN 21 H Creatinine 0.58 L Glucose 131 H Calcium 8.0 L Cardiac Enzymes 05/26/18 Range/Units 17:46 Troponin I < 0.03 (< 0.04) ng/mL Liver Function 05/26/18 Range/Units 17:46 Total Bilirubin 0.5 (0.3-1.0) mg/dL Direct Bilirubin 0.1 (0.0-0.2) mg/dL AST 17 (13-39) Units/L ALT 11 (7-52) Units/L Alkaline Phosphatase 91 (34-104) Units/L Albumin 4.1 (3.5-5.7) g/dL Urine 05/26/18 Range/Units 19:05 Urine Color Yellow (Yellow) Urine Clarity Turbid A (Clear) Urine pH 5.5 (5.0-8.0) pH Units Ur Specific [place] 1.022 (1.010-1.025) Urine Protein Negative (Neg-Trace) mg/dL Urine Glucose (UA) >=1000 H (Normal) mg/dL - ABG Interpretation ABG results: PT/INR, D-dimer PT 62.3 Seconds (9.4-12.1) H* 05/27/18 03:10 - Impressions Impressions Chest X-Ray 05/26/18 17:50 IMPRESSION: Stable portable study. D/ / Meera Parker Cha, MD / Merea Parker Cha, MD Interpreting Provider: Meera Parker Cha, MD Consult Discharge Plan - Plan Referrals: NONE,PCP [Primary Care Provider] - <Becca Umana - Last Filed: 05/27/18 13:24> Hospitalist Progress Note - Encounter Date of Encounter: 05/27/18 Time of Encounter: 09:30 - Exam Vitals: Temp Pulse Resp BP Pulse Ox 98.6 F 95 18 113/63 99 05/27/18 11:40 05/27/18 11:40 05/27/18 11:40 05/27/18 11:40 05/27/18 11:40 - Assessment and Plan (1) Severe sepsis Current Visit: Yes Status: Acute (2) DKA (diabetic ketoacidoses) Current Visit: Yes Status: Acute (3) Multiple sclerosis Current Visit: Yes Status: Acute (4) T1DM (type 1 diabetes mellitus) Current Visit: Yes Status: Acute (5) Neurogenic bladder Current Visit: Yes Status: Acute (6) Supratherapeutic INR Current Visit: Yes Status: Acute (7) History of DVT (deep vein thrombosis) Current Visit: Yes Status: Acute (8) DVT prophylaxis Current Visit: Yes Status: Acute (9) Osteoporosis Current Visit: No Status: Chronic (10) Allergic rhinitis Current Visit: Yes Status: Acute - Time Spent with Patient Total time spent is greater than 50% in coordination of care (as documented) at patient's floor/unit and/or counseling patient: Internal Medicine: Result - Labs CBC & Chem 7: 05/27/18 03:10 05/27/18 06:52 Labs: Short CBC 05/26/18 05/27/18 Range/Units 17:46 03:10 WBC 25.7 H 18.5 H (4.3-11.1) K/mcL Hgb 14.7 11.7 D (11.5-15.4) g/dL Hct 46.9 H 36.4 (35.3-44.9) % Plt Count 324 242 (140-400) K/mcL Neutrophils # 22.7 H 14.0 H (1.6-8.9) K/mcL BMP 05/26/18 05/27/18 05/27/18 17:46 00:32 03:10 Sodium 136 142 140 Potassium 4.5 3.4 L 4.0 Chloride 97 L 110 H 110 H Carbon Dioxide 21 L 19 L 19 L BUN 25 H 24 H 23 H Creatinine 0.75 0.64 0.58 L Glucose 419 H 138 H 139 H Calcium 9.6 8.4 L 8.1 L 05/27/18 06:52 Sodium 138 Potassium 4.0 Chloride 111 H Carbon Dioxide 20 L BUN 21 H Creatinine 0.58 L Glucose 131 H Calcium 8.0 L Cardiac Enzymes 05/26/18 Range/Units 17:46 Troponin I < 0.03 (< 0.04) ng/mL Liver Function 05/26/18 Range/Units 17:46 Total Bilirubin 0.5 (0.3-1.0) mg/dL Direct Bilirubin 0.1 (0.0-0.2) mg/dL AST 17 (13-39) Units/L ALT 11 (7-52) Units/L Alkaline Phosphatase 91 (34-104) Units/L Albumin 4.1 (3.5-5.7) g/dL Urine 05/26/18 Range/Units 19:05 Urine Color Yellow (Yellow) Urine Clarity Turbid A (Clear) Urine pH 5.5 (5.0-8.0) pH Units Ur Specific [place] 1.022 (1.010-1.025) Urine Protein Negative (Neg-Trace) mg/dL Urine Glucose (UA) >=1000 H (Normal) mg/dL - ABG Interpretation ABG results: PT/INR, D-dimer PT 74.3 Seconds (9.4-12.1) H* 05/27/18 12:08 - Impressions Impressions Chest X-Ray 05/26/18 17:50 IMPRESSION: Stable portable study. D/ / Meera Parker Cha, MD / Meera Parker Cha, MD Interpreting Provider: Meera Parker Cha, MD - Attending Attestation I saw evaluated and examined this patient and my medical decision-making was reviewed with the Resident Physician, Yogesh Zavala. I agree with the documented findings, disposition and treatment plan as described except to any changes set forth below. We independently had [id number] contact with the patient. Patient hospitalized with DKA and sepsis from UTI related to chronic indwelling Clark catheter. Catheter has been removed at this time. On antibiotics. Will follow culture results. DKA resolved. Patient on subcutaneous insulin currently. <Yogesh Zavala - Last Filed: 05/27/18 11:36> (1) DKA (diabetic ketoacidoses) Qualifiers: Diabetes mellitus type: type 1 Diabetes mellitus complication detail: without coma Qualified Code(s): E10.10 - Type 1 diabetes mellitus with ketoacidosis without coma (8) Osteoporosis Qualifiers: Osteoporosis type: unspecified Presence of current pathological fracture: unspecified Qualified Code(s): M81.0 - Age-related osteoporosis without current pathological fracture (10) Allergic rhinitis Qualifiers: Allergic rhinitis trigger: unspecified Allergic rhinitis seasonality: unspecified Qualified Code(s): J30.9 - Allergic rhinitis, unspecified <Ameda,Srutor - Last Filed: 05/27/18 13:24> (2) DKA (diabetic ketoacidoses) Qualifiers: Diabetes mellitus type: type 1 Diabetes mellitus complication detail: without coma Qualified Code(s): E10.10 - Type 1 diabetes mellitus with ketoacidosis without coma (9) Osteoporosis Qualifiers: Osteoporosis type: unspecified Presence of current pathological fracture: unspecified Qualified Code(s): M81.0 - Age-related osteoporosis without current pathological fracture (10) Allergic rhinitis Qualifiers: Allergic rhinitis trigger: unspecified Allergic rhinitis seasonality: unspecified Qualified Code(s): J30.9 - Allergic rhinitis, unspecified
[2018-05-27] MEDS ORDERED: Benzonatate 100 MG CAPSULE PO PRN (11:39)
[2018-05-27 12:59] LABS: INR 6.6; Prothrombin Time 74.3 Seconds (9.4-12.1)
[2018-05-27] MEDS ORDERED: Warfarin perPT PO PRN (18:00)
[2018-05-28 04:10] LABS: Basophils # 0.1 K/mcL (0.0-0.2); Basophils % 0.4 %; Eosinophils # 0.2 K/mcL (0.0-0.6); Eosinophils % 1.4 %; Hematocrit 33.9 % (35.3-44.9); Immature Granulocytes % 0.3 % (0-4); Lymphocytes # 3.4 K/mcL (0.6-4.6); Lymphocytes % 29.3 %; Mean Corpuscular HGB Conc 32.2 g/dL (31.6-35.5); Mean Corpuscular Hemoglobin 27.8 pg (28.0-33.3); Mean Corpuscular Volume 86.5 fL (83.0-100.0); Mean Platelet Volume 10.8 fL (9.4-12.4); Monocytes # 0.7 K/mcL (0.0-1.3); Monocytes % 6.1 %; Neutrophils # 7.2 K/mcL (1.6-8.9); Platelet Count 210 K/mcL (140-400); Red Blood Count 3.92 M/mcL (3.82-4.97); Red Cell Distribution Width 14.6 % (11.5-14.5); Segmented Neutrophils % 62.5 %
[2018-05-28 04:14] LABS: Hemoglobin 10.9 g/dL (11.5-15.4)
[2018-05-28 04:16] LABS: INR 3.9
[2018-05-28 04:19] LABS: Prothrombin Time 43.7 Seconds (9.4-12.1)
[2018-05-28 04:27] LABS: BUN/Creatinine Ratio 27 (6-26); Blood Urea Nitrogen 17 mg/dL (6-20); Calcium 8.2 mg/dL (8.6-10.3); Carbon Dioxide 21 mEq/L (23-29); Chloride 111 mEq/L (98-107); Glucose 307 mg/dL (70-105); Osmolality,Calculated 301 (280-300); Sodium 139 mEq/L (136-145); eGFR For Non-African Americans > 60 (> 60)
[2018-05-28] MEDS: Insulin LISPRO 300 UNITS/3 ML VIAL SQ SCH ×4 (07:53→21:59)
[2018-05-28] MEDS: Insulin DETEMIR 100 UNIT/ML X5UNITS SQ SCH (09:19)
[2018-05-28] MEDS: Levofloxacin 750 MG/150 ML 750 MG/150 ML BAG IVPB SCH (09:19)
--- NOTE | 2018-05-28 13:43 | Internal Med Progress Note ---
Addendum entered and electronically signed by Danae Cuellar 05/28/18 17:41: I have re-performed and reviewed the history documented by the medical student, and I confirm its accuracy except as noted below Original Note: <Jaya Wan U - Last Filed: 05/28/18 16:06> Hospitalist Progress Note - Encounter Date of Encounter: 05/28/18 Time of Encounter: 08:40 - Subjective Interval History: 57 y/o female pt presented to the ED for episode of DKA. She has a hx of MS, DVT, T1DM. Pt is doing much better today with no more nausea or vomiting. Pt is A&Ox3 now, but still lethargic and weak. The AG on admission was 18, and currently it is 7. Pt was positive for a UTI, urine and blood cultures are pending. Pt to continue on levofloxacin and vancomycin until final cultures received. Pt has a hx of neurogenic bladder and has a chronic indwelling catheter that had to be removed, currently wearing adult diapers. - Exam Vitals: Temp Pulse Resp BP Pulse Ox 97.5 F L 91 12 104/69 98 05/28/18 11:27 05/28/18 11:27 05/28/18 11:27 05/28/18 11:27 05/28/18 11:27 Exam: general - NAD, AOx3, laying in bed HEENT - moist mucus membranes, NCAT lungs - ctab, no wheeze/rhonchi/rales heart - s1s2, cta no MRG RRR Abd - TTP in periumbilical region, overweight, no rebound/guarding extremities - normal inspection, b/l swelling of feet neuro - sensation intact, no FND skin - intact, no rash/ulcer - Assessment and Plan (1) DKA (diabetic ketoacidoses) Current Visit: Yes Status: Resolved Assessment and Plan: 57-year-old female with history of type I diabetes, multiple sclerosis who lives at [facility] comes to the ED with complaint of nausea, vomiting, diarrhea for about 2 days. ABG, BG, AG on admission (05/26): - pH 7.22 - BG 419 - AG 18 BG, AG today (05/28): - BG 307 - AG 7 DKA most likely secondary to UTI - pt has a hx of MRSA UTI - has also grown citrobacter and psuedomonas In the ED, pt got fluids 2L bolus and insulin drip - met severe sepsis criteria on admission with tachycardia, elevated WBC, lactic acidosis. source of infection: UTI. - on admission lactic acid was 3, repeat 1.8 Does not meet sepsis criteria anymore - WBC count 11.5 - HR 96 - T 98.8 - RR 14 Plan: - diabetic diet - insulin drip d/c - on levemir 10U and LDSS - zofran prn nausea - blood cx pending - urine cx pending - vancomycin, levaquin day 2 - dispo: toleration of PO intake, resolution of sepsis, final urine/blood cultures (2) Multiple sclerosis Current Visit: Yes Status: Acute Assessment and Plan: Resume home meds once DKA resolves. - chronic (3) T1DM (type 1 diabetes mellitus) Current Visit: Yes Status: Acute Assessment and Plan: See above. (4) Neurogenic bladder Current Visit: Yes Status: Chronic Assessment and Plan: Chronic - has had indwelling clark catheter which was removed - currently wearing adult diaper - will obtain bladder scan to ensure she is voiding - if >700mL put clark catheter in - if not, place clark catheter prior to discharge (5) Supratherapeutic INR Current Visit: Yes Status: Acute Assessment and Plan: INR on admission 3.9 - likely secondary to DKA vs sepsis Repeat INR 3.9 with morning labs Plan: - continue to monitor PT/INR - restart Coumadin per pharmacy dosing (6) History of DVT (deep vein thrombosis) Current Visit: Yes Status: Acute Assessment and Plan: See above. (7) DVT prophylaxis Current Visit: Yes Status: Acute Assessment and Plan: SCD (8) Osteoporosis Current Visit: No Status: Chronic Assessment and Plan: On Alendronate - chronic (9) Severe sepsis Current Visit: Yes Status: Acute Assessment and Plan: Resolved - see above (10) Allergic rhinitis Current Visit: Yes Status: Chronic Assessment and Plan: On loratadine - chronic - Time Spent with Patient Total time spent is greater than 50% in coordination of care (as documented) at patient's floor/unit and/or counseling patient: Plan of Care Discussed with: patient Internal Medicine: Result - Labs CBC & Chem 7: 05/28/18 03:39 05/28/18 03:39 Labs: Short CBC 05/28/18 Range/Units 03:39 WBC 11.5 H (4.3-11.1) K/mcL Hgb 10.9 L (11.5-15.4) g/dL Hct 33.9 L (35.3-44.9) % Plt Count 210 (140-400) K/mcL Neutrophils # 7.2 (1.6-8.9) K/mcL BMP 05/28/18 03:39 Sodium 139 Potassium 4.0 Chloride 111 H Carbon Dioxide 21 L BUN 17 Creatinine 0.62 Glucose 307 H Calcium 8.2 L - ABG Interpretation ABG results: PT/INR, D-dimer PT 43.7 Seconds (9.4-12.1) H* 05/28/18 03:39 Consult Discharge Plan - Plan Referrals: NONE,PCP [Primary Care Provider] - <Becca Umana - Last Filed: 05/29/18 07:48> Hospitalist Progress Note - Encounter Date of Encounter: 05/28/18 Time of Encounter: 10:35 - Exam Vitals: Temp Pulse Resp BP Pulse Ox 99.3 F 86 18 116/69 95 05/29/18 06:29 05/29/18 06:29 05/29/18 06:29 05/29/18 06:29 05/29/18 06:29 - Assessment and Plan (1) Severe sepsis Current Visit: Yes Status: Acute (2) DKA (diabetic ketoacidoses) Current Visit: Yes Status: Acute (3) Multiple sclerosis Current Visit: Yes Status: Acute (4) T1DM (type 1 diabetes mellitus) Current Visit: Yes Status: Acute (5) Neurogenic bladder Current Visit: Yes Status: Chronic (6) Supratherapeutic INR Current Visit: Yes Status: Acute (7) History of DVT (deep vein thrombosis) Current Visit: Yes Status: Acute (8) DVT prophylaxis Current Visit: Yes Status: Acute (9) Osteoporosis Current Visit: No Status: Chronic (10) Allergic rhinitis Current Visit: Yes Status: Chronic - Time Spent with Patient Total time spent is greater than 50% in coordination of care (as documented) at patient's floor/unit and/or counseling patient: Internal Medicine: Result - Labs CBC & Chem 7: 05/29/18 05:43 05/29/18 05:43 Labs: Short CBC 05/29/18 Range/Units 05:43 WBC 9.0 (4.3-11.1) K/mcL Hgb 11.4 L (11.5-15.4) g/dL Hct 35.9 (35.3-44.9) % Plt Count 229 (140-400) K/mcL Neutrophils # 4.8 (1.6-8.9) K/mcL BMP 05/29/18 05:43 Sodium 140 Potassium 3.8 Chloride 110 H Carbon Dioxide 23 BUN 13 Creatinine 0.57 L Glucose 238 H Calcium 8.5 L - ABG Interpretation ABG results: PT/INR, D-dimer PT 20.9 Seconds (9.4-12.1) H D 05/29/18 05:43 - Attending Attestation I saw evaluated and examined this patient and my medical decision-making was reviewed with the Resident Physician, Danae Cuellar. I agree with the d ocumented findings, disposition and treatment plan as described except to any changes set forth below. We independently had [id number] contact with the patient. Patient is awake and alert. She feels much better overall. Denies any abdominal pain. No dysuria or hematuria. No nausea or vomiting. No fevers or chills reported overnight. On exam, patient is awake and alert. No abdominal tenderness. S1 and S2 are normal. Breath sounds are normal. No pedal edema noted. Complicated UTI due to indwelling Clark catheter: Clark catheter has been removed. Discussed with urology. We will get bladder scan. Plan on discharging Patient with Clark if she is retaining urine. Awaiting culture results. Continue current antibiotics. Supratherapeutic INR: Improving. Will resume Coumadin once INR less than 3. Diabetes mellitus type 1 with DKA: DKA resolved. Blood sugars have been better controlled. Multiple sclerosis with neurogenic bladder: Patient may require Clark catheter placed again per urology. Continue supportive care. Decubitus ulcer prophylaxis. Moderate risk for complications. <Jaya Wan U - Last Filed: 05/28/18 16:06> (1) DKA (diabetic ketoacidoses) Qualifiers: Diabetes mellitus type: type 1 Diabetes mellitus complication detail: without coma Qualified Code(s): E10.10 - Type 1 diabetes mellitus with ketoacidosis without coma (8) Osteoporosis Qualifiers: Osteoporosis type: unspecified Presence of current pathological fracture: unspecified Qualified Code(s): M81.0 - Age-related osteoporosis without current pathological fracture (10) Allergic rhinitis Qualifiers: Allergic rhinitis trigger: unspecified Allergic rhinitis seasonality: unspecified Qualified Code(s): J30.9 - Allergic rhinitis, unspecified <Becca Umana - Last Filed: 05/29/18 07:48> (2) DKA (diabetic ketoacidoses) Qualifiers: Diabetes mellitus type: type 1 Diabetes mellitus complication detail: without coma Qualified Code(s): E10.10 - Type 1 diabetes mellitus with ketoacidosis without coma (9) Osteoporosis Qualifiers: Osteoporosis type: unspecified Presence of current pathological fracture: unspecified Qualified Code(s): M81.0 - Age-related osteoporosis without current pathological fracture (10) Allergic rhinitis Qualifiers: Allergic rhinitis trigger: unspecified Allergic rhinitis seasonality: unspecified Qualified Code(s): J30.9 - Allergic rhinitis, unspecified
--- NOTE | 2018-05-28 17:30 | Event Note ---
Date of Encounter: 05/28/18 Time of Encounter: 10:35 Patient is awake and alert. She feels much better overall. Denies any abdominal pain. No dysuria or hematuria. No nausea or vomiting. No fevers or chills reported overnight. On exam, patient is awake and alert. No abdominal tenderness. S1 and S2 are normal. Breath sounds are normal. No pedal edema noted. Complicated UTI due to indwelling Rhodes catheter: Rhodes catheter has been removed. Discussed with urology. We will get bladder scan. Plan on discharging Patient with Rhodes if she is retaining urine. Awaiting culture results. Continue current antibiotics. Supratherapeutic INR: Improving. Will resume Coumadin once INR less than 3. Diabetes mellitus type 1 with DKA: DKA resolved. Blood sugars have been better controlled. Multiple sclerosis with neurogenic bladder: Patient may require Rhodes catheter placed again per urology. Continue supportive care. Decubitus ulcer prophylaxis. Moderate risk for complications.
[2018-05-28] MEDS ORDERED: *HR* Warfarin 3 MG TABLET PO ONE (18:00)
[2018-05-29 06:10] LABS: Basophils # 0.1 K/mcL (0.0-0.2); Basophils % 0.6 %; Eosinophils # 0.3 K/mcL (0.0-0.6); Eosinophils % 3.3 %; Hematocrit 35.9 % (35.3-44.9); Hemoglobin 11.4 g/dL (11.5-15.4); Immature Granulocytes % 0.3 % (0-4); Lymphocytes # 3.2 K/mcL (0.6-4.6); Lymphocytes % 35.6 %; Mean Corpuscular HGB Conc 31.8 g/dL (31.6-35.5); Mean Corpuscular Hemoglobin 27.7 pg (28.0-33.3); Mean Corpuscular Volume 87.1 fL (83.0-100.0); Mean Platelet Volume 10.4 fL (9.4-12.4); Monocytes # 0.7 K/mcL (0.0-1.3); Monocytes % 7.2 %; Neutrophils # 4.8 K/mcL (1.6-8.9); Platelet Count 229 K/mcL (140-400); Red Blood Count 4.12 M/mcL (3.82-4.97); Red Cell Distribution Width 14.3 % (11.5-14.5)
[2018-05-29 06:25] LABS: INR 1.9; Prothrombin Time 20.9 Seconds (9.4-12.1)
[2018-05-29 06:39] LABS: BUN/Creatinine Ratio 23 (6-26); Blood Urea Nitrogen 13 mg/dL (6-20); Calcium 8.5 mg/dL (8.6-10.3); Carbon Dioxide 23 mEq/L (23-29); Chloride 110 mEq/L (98-107); Glucose 238 mg/dL (70-105); Osmolality,Calculated 298 (280-300); Potassium 3.8 mEq/L (3.5-5.1); Sodium 140 mEq/L (136-145); eGFR For Non-African Americans > 60 (> 60)
[2018-05-29] MEDS: Insulin DETEMIR 100 UNIT/ML X5UNITS SQ SCH ×2 (08:32→22:18)
[2018-05-29] MEDS: Levofloxacin 750 MG/150 ML 750 MG/150 ML BAG IVPB SCH (08:32)
[2018-05-29] MEDS: Insulin LISPRO 300 UNITS/3 ML VIAL SQ SCH ×3 (08:33→16:53)
--- NOTE | 2018-05-29 13:12 | Discharge Summary ---
<Jaya Wan U - Last Filed: 05/29/18 13:10> - NOTES TO OUTPATIENT PROVIDER Notes to Outpatient Provider: - 10 days of Bactrin, Levaquin + Lactobacillus. - Coumadin 1.5 mg. - Chronic clark catheter placed Orders not resulted at time of discharge: Pending orders 05/26/18 18:22 Culture,Blood [BC] Stat 05/30/18 04:00 PT/INR [Prothrombin Time INR] [COAG] AM 0400 05/30/18 05:00 Vancomycin,Trough Timed Date of Encounter: 05/29/18 Time of Encounter: 09:15 - Discharge Diagnosis (1) DKA (diabetic ketoacidoses) Priority: Primary Status: Resolved Qualifiers: Diabetes mellitus type: type 1 Diabetes mellitus complication detail: without coma Qualified Code(s): E10.10 - Type 1 diabetes mellitus with ketoacidosis without coma (2) Multiple sclerosis Priority: Secondary Status: Acute (3) T1DM (type 1 diabetes mellitus) Priority: Secondary Status: Acute (4) Neurogenic bladder Priority: Secondary Status: Chronic (5) Supratherapeutic INR Priority: Secondary Status: Acute (6) History of DVT (deep vein thrombosis) Priority: Secondary Status: Acute (7) DVT prophylaxis Priority: Secondary Status: Acute (8) Osteoporosis Priority: Secondary Status: Chronic Qualifiers: Osteoporosis type: unspecified Presence of current pathological fracture: unspecified Qualified Code(s): M81.0 - Age-related osteoporosis without current pathological fracture (9) Severe sepsis Priority: Secondary Status: Acute (10) Allergic rhinitis Priority: Secondary Status: Chronic Qualifiers: Allergic rhinitis trigger: unspecified Allergic rhinitis seasonality: unspecified Qualified Code(s): J30.9 - Allergic rhinitis, unspecified Hospital course: Ms. Boyd is a 57 year old female who had a hospital stay from 05/26/18 to 05/29/18. She presented to the ED with N/V/D and abdominal pain for 2 days. She has a MPH of MS, DVT, T1DM. She is from [facility]. She has a chronic indwelling catheter for neurogenic bladder, hx of recurrent UTI's. Here is a summary of labs/exams/procedures obtained: - PT 43.7 - INR 3.9 - Urine +UTI - On admission: Metabolic acidosis with AG 18 - Bladder scan: unremarkable The pt had an episode of DKA that resolved following proper protocol. Pt also given Levofloxacin and vancomycin for UTI infection while cultures were pending. Pt had clark catheter removed to allow UTI to resolve. Plan: - 10 day course of Bactrim & Levaquin - 10 day course of lactobacillus - Coumadin 1.5 mg - Placement of fole catheter prior to discharge Discharge discussed with: patient - Time Spent with Patient Total time spent providing and/or coordinating discharge services: - Discharge Medications Prescriptions: RX: Lactobacillus [Culturelle] 1 each PO BID 9 Days #18 cap.sprink RX: levoFLOXacin [Levaquin] 750 mg PO DAILY 9 Days #9 tablet RX: Sulfamethoxazole/Trimeth DS [Bactrim Ds] 1 each PO BID 9 Days #18 tablet RX: Warfarin [Coumadin] 4 mg PO DAILY 30 Days #30 tablet Home Medications: RX: Alendronate Sodium [Fosamax] 70 mg PO MO 01/13/16 [History] RX: Ascorbic Acid [Vitamin C] 500 mg PO BID 01/13/16 [History] RX: Calcium Carbonate/Vitamin D3 [Calcium 500 + Vit D Caplet] 1 tab PO TID 01/13/16 [History] RX: Docusate Sodium [Dok] 100 mg PO BID 01/13/16 [History] RX: Ergocalciferol (VITAMIN D2) [Vitamin D2 (50,000 UNIT)] 50,000 unit PO GALLEGOS 01/13/16 [History] RX: Insulin Glargine [Lantus] 15 unit SQ QAM 01/13/16 [History] RX: Loratadine [Claritin] 10 mg PO DAILY 01/13/16 [History] RX: Ondansetron HCl [Zofran] 4 mg PO Q6H PRN 01/13/16 [History] RX: Polyethylene Glycol 3350 [MiraLAX] 17 gm PO DAILY 01/13/16 [History] RX: Guaifenesin [Mucinex] 600 mg PO Q12H 09/05/17 [History] RX: Ipratropium/Albuterol Neb [Duoneb] 1 vial IH Q4H PRN 09/05/17 [History] RX: Benzonatate [Tessalon] 200 mg PO Q8H PRN 05/26/18 [History] RX: Budesonide [Uceris] 9 mg PO DAILY 30 Days #30 tabdr...er 05/26/18 [Rx] RX: Calcium Carbonate/Vitamin D3 [Oyster Shell Calcium-Vit D Tab] 1 tab PO TID 05/26/18 [History] RX: Gentamicin Sulfate Cream [Gentamicin Sulfate] 0 gm TD BID 10 Days #1 tube 05/26/18 [Rx] RX: Insulin LISPRO [Admelog] 2 - 12 unit SQ ACHS 05/26/18 [History] RX: Nystatin POWDER [Nystop] 1 appl TP BID #30 gm 05/26/18 [Rx] RX: Potassium Chloride [K-Tab ER] 10 meq PO DAILY 05/26/18 [History] RX: Lactobacillus [Culturelle] 1 each PO BID 9 Days #18 cap.sprink 05/30/18 [Rx] RX: Sulfamethoxazole/Trimeth DS [Bactrim Ds] 1 each PO BID 9 Days #18 tablet 05/30/18 [Rx] RX: Warfarin [Coumadin] 4 mg PO DAILY 30 Days #30 tablet 05/30/18 [Rx] RX: levoFLOXacin [Levaquin] 750 mg PO DAILY 9 Days #9 tablet 05/30/18 [Rx] Allergies/Adverse Reactions: Allergy/AdvReac Type Severity Reaction Status Date / Time No Known Allergies Allergy Verified 01/05/17 04:11 Date of admission: 05/27/18 14:55 Primary care physician: PCP NONE Consults: 05/26/18 22:31 Consult for Pharmacy Education [CONS] Routine Reason for Consult: DKA Call Completed: No 05/27/18 03:35 Consult to [employer] [CONS] Routine Reason for Consult: Discharge planning, patient from [facility] 05/27/18 13:20 Consult to Physical Therapy [CONS] Routine Comment: Evaluate, develop and implement POC Reason for Consult: Gen weakness Does patient have active BEDREST order?: No Is patient medically & hemodynamically stable?: Yes 05/27/18 13:21 Consult to [employer] [CONS] Routine Reason for Consult: DC planning Discharging clinician: Becca Umana Anticipated date of discharge: 05/29/18 - Constitutional Vitals: Temp Pulse Resp BP Pulse Ox 98.5 F 96 15 94/61 98 05/29/18 11:05 05/29/18 11:05 11/16/18 11:05 05/29/18 11:05 05/29/18 11:05 General appearance: Present: cooperative, A&O X 2, A&O X 3 Exam: general - NAD, AOx3, laying in bed HEENT - moist mucus membranes, NCAT lungs - ctab, no wheeze/rhonchi/rales heart - s1s2, cta no MRG RRR Abd - TTP in periumbilical region, overweight, no rebound/guarding extremities - normal inspection, b/l swelling of feet neuro - sensation intact, no FND skin - intact, no rash/ulcer - Patient Status Disposition: Transfer SNF Condition: Good - Discharge Instructions Follow Up With: NONE,PCP [Primary Care Provider] - (WMP) Forms: ED Satisfaction Letter <Danae Cuellar - Last Filed: 05/30/18 14:50> - NOTES TO OUTPATIENT PROVIDER Notes to Outpatient Provider: Patient to be discharged on 9 more days Bactrim BID, Levaquin QD, and Lactobacillus. To continue on Coumadin 4 mg QD. Clark catheter replaced prior to discharge. Follow up with PCP in 2-3 days. Recheck Potassium with BMP at that time. Orders not resulted at time of discharge: Pending orders 05/26/18 18:22 Culture,Blood [BC] Stat 05/31/18 04:00 INR/PT [Prothrombin Time INR] [COAG] AM 0400 06/01/18 04:00 INR/PT [Prothrombin Time INR] [COAG] AM 0400 Date of Encounter: 05/30/18 Time of Encounter: 14:50 - Discharge Diagnosis (1) DKA (diabetic ketoacidoses) Priority: Primary Status: Resolved Qualifiers: Diabetes mellitus type: type 1 Diabetes mellitus complication detail: without coma Qualified Code(s): E10.10 - Type 1 diabetes mellitus with ketoacidosis without coma (2) Multiple sclerosis Priority: Secondary Status: Chronic (3) Neurogenic bladder Priority: Secondary Status: Chronic (4) T1DM (type 1 diabetes mellitus) Priority: Secondary Status: Acute (5) History of DVT (deep vein thrombosis) Priority: Secondary Status: Chronic (6) Severe sepsis Priority: Secondary Status: Resolved (7) Osteoporosis Priority: Secondary Status: Chronic Qualifiers: Osteoporosis type: unspecified Presence of current pathological fracture: unspecified Qualified Code(s): M81.0 - Age-related osteoporosis without current pathological fracture (8) Allergic rhinitis Priority: Secondary Status: Chronic Qualifiers: Allergic rhinitis trigger: unspecified Allergic rhinitis seasonality: unspecified Qualified Code(s): J30.9 - Allergic rhinitis, unspecified (9) DVT prophylaxis Priority: Secondary Status: Acute Hospital course: I have re-performed and reviewed the history documented by the medical student, and I confirm its accuracy except as noted below This is a 57 year old F with PMHx Multiple Sclerosis, DVT, T1DM, neurogenic bladder with chronic indwelling clark catheter who presented due to DKA. Resident of [facility] [place]. Brought to ED with CC of nausea, vomiting, diarrhea for 2d, abdominal pain; [facility] 430s with diarrhea, fevers/chils In ED: ABG: ph = 7.22, Blood glucose = 400s; Anion Gap = 18 DKA likely secondary to UTI CXR: Unremarkable Given 2L fluid bolus, started on insulin GTT Pt met sepsis criteria - tachycardia, leukocytosis, lactic acidosis with source of UTI (initial Lactic acid = 3.0 --> trended down to 2.8) Pt kept NPO, given nausea and pain control Blood Cx and Urine Cx drawn Started on vancomycin, levaquin due to sensitivity from last urine culture: History of recurrent UTIs secondary to indwelling Clark catheter due to multiple sclerosis. Past urine cultures have been positive for Citrobacter, Enterococus, Klebsiella, Pseudomonas, MRSA. Coumadin also held due to supratherapeutic INR, and restarted when INR returned to subtherapeutic levels Anion Gap closed by the next morning. Lactic acid trended down, and pt's vitals stabilized. Insulin drip was stopped, and pt started on basal insulin and sliding scale. Vanco/Levaquin was continued. Pt continued to remain hemodynamically stable. At time of discharge, pt reported no complaints. Plan to discharge to [facility] on 9 more days of Levaquin and Bactrim. Also Coumadin 4mg QD continued. Follow up with PCP in 1 week. Discharge discussed with: patient - Time Spent with Patient Total time spent providing and/or coordinating discharge services: Less than 30 minutes Date of admission: 05/27/18 14:55 Primary care physician: PCP NONE Consults: 05/26/18 22:31 Consult for Pharmacy Education [CONS] Routine Reason for Consult: DKA Call Completed: No 05/27/18 03:35 Consult to [employer] [CONS] Routine Reason for SW Consult: Discharge planning, patient from [facility] 05/27/18 13:20 Consult to Physical Therapy [CONS] Routine Comment: Evaluate, develop and implement POC Reason for Consult: Gen weakness Does patient have active BEDREST order?: No Is patient medically & hemodynamically stable?: Yes 05/27/18 13:21 Consult to [employer] [CONS] Routine Reason for SW Consult: DC planning Discharging clinician: Danae Cuellar Anticipated date of discharge: 05/30/18 - Constitutional Vitals: Temp Pulse Resp BP Pulse Ox 99.1 F 85 20 102/68 96 05/30/18 07:36 05/30/18 11:32 05/30/18 11:32 05/30/18 11:32 05/30/18 11:32 General appearance: Present: cooperative, A&O X 2, no acute distress, answers questions appropriately Exam: GEN: NAD; AOx2; Vitals stable; resting comfortably in bed HEENT: Normocephalic, atraumatic, eomi, mucous membranes moist CARDIO: RRR, no murmurs, rubs, gallops RESP: CTAB, no wheezes, rales, rhonchi ABD: Soft, non-tender, nondistended, bowel sounds present EXT: no lower extremity swelling bilaterally - Patient Status Functional capacity at discharge: wheelchair bound Overall status at discharge: patient is progressing back to baseline - Diet and Activity Activity: as per physical therapy, increase activity as tolerated Diet: diabetic diet <Becca Umana - Last Filed: 05/31/18 07:48> Orders not resulted at time of discharge: Pending orders 05/26/18 18:22 Culture,Blood [BC] Stat Date of Encounter: 05/30/18 Time of Encounter: 15:00 - Discharge Diagnosis (1) Severe sepsis Status: Resolved (2) DKA (diabetic ketoacidoses) Status: Acute Qualifiers: Diabetes mellitus type: type 1 Diabetes mellitus complication detail: without coma Qualified Code(s): E10.10 - Type 1 diabetes mellitus with ketoacidosis without coma (3) Multiple sclerosis Status: Acute (4) T1DM (type 1 diabetes mellitus) Status: Acute (5) Neurogenic bladder Status: Chronic (6) Supratherapeutic INR Status: Resolved (7) History of DVT (deep vein thrombosis) Status: Acute (8) DVT prophylaxis Status: Acute (9) Osteoporosis Status: Chronic Qualifiers: Osteoporosis type: unspecified Presence of current pathological fracture: unspecified Qualified Code(s): M81.0 - Age-related osteoporosis without current pathological fracture (10) Allergic rhinitis Status: Chronic Qualifiers: Allergic rhinitis trigger: unspecified Allergic rhinitis seasonality: unspecified Qualified Code(s): J30.9 - Allergic rhinitis, unspecified Hospital course: Ms. Boyd is a 57 year old female - Time Spent with Patient Total time spent providing and/or coordinating discharge services: Less than 30 minutes (10 min) Date of admission: 05/27/18 14:55 Primary care physician: PCP NONE Consults: 05/26/18 22:31 Consult for Pharmacy Education [CONS] Routine Reason for Consult: DKA Call Completed: No 05/27/18 03:35 Consult to [employer] [CONS] Routine Reason for SW Consult: Discharge planning, patient from [facility] 05/27/18 13:20 Consult to Physical Therapy [CONS] Routine Comment: Evaluate, develop and implement POC Reason for Consult: Gen weakness Does patient have active BEDREST order?: No Is patient medically & hemodynamically stable?: Yes 05/27/18 13:21 Consult to [employer] [CONS] Routine Reason for SW Consult: DC planning - Constitutional Vitals: Temp Pulse Resp BP Pulse Ox 99.1 F 85 20 102/68 96 05/30/18 07:36 05/30/18 11:32 05/30/18 11:32 05/30/18 11:32 05/30/18 11:32 - Attending Attestation I saw evaluated and examined this patient and my medical decision-making was reviewed with the Resident Physician, Danae Cuellar. I agree with the documented findings, disposition and treatment plan as described except to any changes set forth below. We independently had [id number] contact with the patient. Patient with history of diabetes, prior history of DVT, multiple sclerosis with chronic indwelling Clark catheter [facility] brought into the ER with complaints of nausea vomiting and diarrhea along with generalized weakness. She was having leukocytosis and signs of sepsis so she was started on antibiotics targeting possible urinary tract infection due to her chronic indwelling Clark catheter. Her Clark catheter was removed. Her symptoms slowly improved with aggressive treatment. Her urine culture only grew mixed organisms. As such she is being discharged on oral antibiotics according to her prior cultures. She did have supratherapeutic INR on arrival here and it has slowly improved. Her Coumadin dosage has been treated adjusted accordingly. She needs to continue to closely monitor as outpatient. She will be discharged today back to skilled rehabilitation. On exam, patient is awake and alert. Does have issues with memory. S1 and S2 are normal. Abdomen is soft, nontender. Patient had a new clark catheter placed yesterday.
--- NOTE | 2018-05-29 13:32 | Internal Med Progress Note ---
<Jaya Wan U - Last Filed: 05/29/18 13:40> Hospitalist Progress Note - Encounter Date of Encounter: 05/29/18 Time of Encounter: 09:30 - Subjective Interval History: 57 y/o female pt presented to the ED for episode of DKA. She has a hx of MS, DVT, T1DM. Pt is doing much better today with no more nausea or vomiting. Pt is A&Ox2. The pts DKA has resolved, her bladder scan was unremarkable, and she is awaiting insurance approval for placement into [facility]. - Exam Vitals: Temp Pulse Resp BP Pulse Ox 98.5 F 96 15 94/61 98 05/29/18 11:05 05/29/18 11:05 05/29/18 11:05 05/29/18 11:05 05/29/18 11:05 Exam: general - NAD, AOx3, laying in bed HEENT - moist mucus membranes, NCAT lungs - ctab, no wheeze/rhonchi/rales heart - s1s2, cta no MRG RRR Abd - TTP in periumbilical region, overweight, no rebound/guarding extremities - normal inspection, b/l swelling of feet neuro - sensation intact, no FND skin - intact, no rash/ulcer - Assessment and Plan (1) DKA (diabetic ketoacidoses) Current Visit: Yes Status: Resolved Assessment and Plan: DKA has resolved. Plan: - 10 day course of Bactrim & Levaquin - 10 day course of lactobacillus - Coumadin 1.5 mg - Placement of clark catheter prior to discharge - dispo: awaiting placement in nursing facility after insurance approval (2) Multiple sclerosis Current Visit: Yes Status: Acute Assessment and Plan: Resume home meds once DKA resolves. - chronic (3) T1DM (type 1 diabetes mellitus) Current Visit: Yes Status: Acute Assessment and Plan: See above. (4) Neurogenic bladder Current Visit: Yes Status: Chronic Assessment and Plan: Chronic - has had indwelling clark catheter which was removed - currently wearing adult diaper - bladder scan unremarkable (5) Supratherapeutic INR Current Visit: Yes Status: Resolved Assessment and Plan: INR on admission 3.9 - likely secondary to DKA vs sepsis Repeat INR 1.9 with morning labs Plan: - continue to monitor PT/INR - Coumadin 1.5 mg (6) History of DVT (deep vein thrombosis) Current Visit: Yes Status: Acute Assessment and Plan: See above. (7) DVT prophylaxis Current Visit: Yes Status: Acute Assessment and Plan: SCD (8) Osteoporosis Current Visit: No Status: Chronic Assessment and Plan: On Alendronate - chronic (9) Severe sepsis Current Visit: Yes Status: Acute Assessment and Plan: Resolved - see above (10) Allergic rhinitis Current Visit: Yes Status: Chronic Assessment and Plan: On loratadine - chronic DVT Prophylaxis: SCD - Time Spent with Patient Total time spent is greater than 50% in coordination of care (as documented) at patient's floor/unit and/or counseling patient: Internal Medicine: Result - Labs CBC & Chem 7: 05/29/18 05:43 05/29/18 05:43 Labs: Short CBC 05/29/18 Range/Units 05:43 WBC 9.0 (4.3-11.1) K/mcL Hgb 11.4 L (11.5-15.4) g/dL Hct 35.9 (35.3-44.9) % Plt Count 229 (140-400) K/mcL Neutrophils # 4.8 (1.6-8.9) K/mcL BMP 05/29/18 05:43 Sodium 140 Potassium 3.8 Chloride 110 H Carbon Dioxide 23 BUN 13 Creatinine 0.57 L Glucose 238 H Calcium 8.5 L - ABG Interpretation ABG results: PT/INR, D-dimer PT 20.9 Seconds (9.4-12.1) H D 05/29/18 05:43 Consult Discharge Plan - Plan Referrals: NONE,PCP [Primary Care Provider] - ([facility]) <Danae Cuellar - Last Filed: 05/29/18 14:17> Hospitalist Progress Note - Encounter Date of Encounter: 05/29/18 - Subjective Interval History: I have re-performed and reviewed the history documented by the medical student, and I confirm its accuracy except as noted below - Exam Vitals: Temp Pulse Resp BP Pulse Ox 98.5 F 96 15 94/61 98 05/29/18 11:05 05/29/18 11:05 05/29/18 11:05 05/29/18 11:05 05/29/18 11:05 - Assessment and Plan (1) DKA (diabetic ketoacidoses) Current Visit: Yes Status: Resolved Assessment and Plan: DKA resolved. Cont basal insulin and low dose sliding scale (2) Multiple sclerosis Current Visit: No Status: Chronic Assessment and Plan: Chronic (3) Neurogenic bladder Current Visit: No Status: Chronic Assessment and Plan: Place clark prior to discharge Plan to complete 10d course Levaquin and 10d course Bactrim due to hx of UTIs and previous culture. Will discharge with 10d lactobacillus (4) T1DM (type 1 diabetes mellitus) Current Visit: Yes Status: Acute Assessment and Plan: basal insulin and low dose sliding scale monitor glucose (5) Supratherapeutic INR Current Visit: No Status: Resolved Assessment and Plan: Plan to cont coumadin 1.5mg at discharge (6) DVT prophylaxis Current Visit: No Status: Acute (7) History of DVT (deep vein thrombosis) Current Visit: No Status: Chronic (8) Severe sepsis Current Visit: Yes Status: Resolved Assessment and Plan: Resolved. Vitals stable (9) Osteoporosis Current Visit: No Status: Chronic (10) Allergic rhinitis Current Visit: Yes Status: Chronic - Time Spent with Patient Total time spent is greater than 50% in coordination of care (as documented) at patient's floor/unit and/or counseling patient: less than 15 minutes Plan of Care Discussed with: patient Internal Medicine: Result - Labs CBC & Chem 7: 05/29/18 05:43 05/29/18 05:43 Labs: Short CBC 05/29/18 Range/Units 05:43 WBC 9.0 (4.3-11.1) K/mcL Hgb 11.4 L (11.5-15.4) g/dL Hct 35.9 (35.3-44.9) % Plt Count 229 (140-400) K/mcL Neutrophils # 4.8 (1.6-8.9) K/mcL BMP 05/29/18 05:43 Sodium 140 Potassium 3.8 Chloride 110 H Carbon Dioxide 23 BUN 13 Creatinine 0.57 L Glucose 238 H Calcium 8.5 L - ABG Interpretation ABG results: PT/INR, D-dimer PT 20.9 Seconds (9.4-12.1) H D 05/29/18 05:43 <Becca Umana - Last Filed: 05/29/18 15:13> Hospitalist Progress Note - Encounter Date of Encounter: 05/29/18 Time of Encounter: 10:40 - Exam Vitals: Temp Pulse Resp BP Pulse Ox 98.5 F 96 15 94/61 98 05/29/18 11:05 05/29/18 11:05 05/29/18 11:05 05/29/18 11:05 05/29/18 11:05 - Assessment and Plan (1) Severe sepsis Current Visit: Yes Status: Resolved (2) DKA (diabetic ketoacidoses) Current Visit: Yes Status: Acute (3) Multiple sclerosis Current Visit: Yes Status: Acute (4) T1DM (type 1 diabetes mellitus) Current Visit: Yes Status: Acute (5) Neurogenic bladder Current Visit: Yes Status: Chronic (6) Supratherapeutic INR Current Visit: Yes Status: Resolved (7) History of DVT (deep vein thrombosis) Current Visit: Yes Status: Acute (8) DVT prophylaxis Current Visit: Yes Status: Acute (9) Osteoporosis Current Visit: No Status: Chronic (10) Allergic rhinitis Current Visit: Yes Status: Chronic - Time Spent with Patient Total time spent is greater than 50% in coordination of care (as documented) at patient's floor/unit and/or counseling patient: Internal Medicine: Result - Labs CBC & Chem 7: 05/29/18 05:43 05/29/18 05:43 Labs: Short CBC 05/29/18 Range/Units 05:43 WBC 9.0 (4.3-11.1) K/mcL Hgb 11.4 L (11.5-15.4) g/dL Hct 35.9 (35.3-44.9) % Plt Count 229 (140-400) K/mcL Neutrophils # 4.8 (1.6-8.9) K/mcL BMP 05/29/18 05:43 Sodium 140 Potassium 3.8 Chloride 110 H Carbon Dioxide 23 BUN 13 Creatinine 0.57 L Glucose 238 H Calcium 8.5 L - ABG Interpretation ABG results: PT/INR, D-dimer PT 20.9 Seconds (9.4-12.1) H D 05/29/18 05:43 - Attending Attestation I saw evaluated and examined this patient and my medical decision-making was reviewed with the Resident Physician, Danae Cuellar. I agree with the documented findings, disposition and treatment plan as described except to any changes set forth below. We independently had [id number] contact with the patient. Patient continues to improve. Denies any new complaints today. Tolerating diet well. No abdominal pain. No nausea or vomiting. She does have bladder incontinence which is chronic for her. No significant retention. Bladder scan done today. On exam, patient is awake and alert. Mucous membranes moist. S1 and S2 are normal. Breath sounds are normal. Abdomen is soft, nontender. No pedal edema Complicated UTI due to indwelling Clark catheter: Continue to leave Clark catheter out till time of discharge. Urine culture shows mixed growth penicillins. We will transition to oral antibiotics. Supratherapeutic INR: Coumadin has been resumed. Monitor INR closely. Diabetes mellitus type 1 with DKA: DKA resolved. Blood sugars are elevated today. We will increase sliding scale coverage. Multiple sclerosis with neurogenic bladder: Patient may require Clark catheter placed again per urology. Continue supportive care. Decubitus ulcer prophylaxis. Moderate risk for complications. <Jaya Wan U - Last Filed: 05/29/18 13:40> (1) DKA (diabetic ketoacidoses) Qualifiers: Diabetes mellitus type: type 1 Diabetes mellitus complication detail: without coma Qualified Code(s): E10.10 - Type 1 diabetes mellitus with ketoacidosis without coma (8) Osteoporosis Qualifiers: Osteoporosis type: unspecified Presence of current pathological fracture: unspecified Qualified Code(s): M81.0 - Age-related osteoporosis without current pathological fracture (10) Allergic rhinitis Qualifiers: Allergic rhinitis trigger: unspecified Allergic rhinitis seasonality: unspecified Qualified Code(s): J30.9 - Allergic rhinitis, unspecified <Danae Cuellar - Last Filed: 05/29/18 14:17> (1) DKA (diabetic ketoacidoses) Qualifiers: Diabetes mellitus type: type 1 Diabetes mellitus complication detail: without coma Qualified Code(s): E10.10 - Type 1 diabetes mellitus with ketoacidosis without coma (9) Osteoporosis Qualifiers: Osteoporosis type: unspecified Presence of current pathological fracture: unspecified Qualified Code(s): M81.0 - Age-related osteoporosis without current pathological fracture (10) Allergic rhinitis Qualifiers: Allergic rhinitis trigger: unspecified Allergic rhinitis seasonality: unspecified Qualified Code(s): J30.9 - Allergic rhinitis, unspecified <AmBecca mccain - Last Filed: 05/29/18 15:13> (2) DKA (diabetic ketoacidoses) Qualifiers: Diabetes mellitus type: type 1 Diabetes mellitus complication detail: without coma Qualified Code(s): E10.10 - Type 1 diabetes mellitus with ketoacidosis without coma (9) Osteoporosis Qualifiers: Osteoporosis type: unspecified Presence of current pathological fracture: unspecified Qualified Code(s): M81.0 - Age-related osteoporosis without current pathological fracture (10) Allergic rhinitis Qualifiers: Allergic rhinitis trigger: unspecified Allergic rhinitis seasonality: unspecified Qualified Code(s): J30.9 - Allergic rhinitis, unspecified
[2018-05-29] MEDS ORDERED: Aminoglycoside Consult 1 EACH MC ONE (17:48)
[2018-05-29] MEDS ORDERED: *HR* Warfarin 3 MG TABLET PO ONE (18:00)
[2018-05-29] MEDS ORDERED: Insulin LISPRO 300 UNITS/3 ML VIAL SQ SCH (21:00)
[2018-05-29] MEDS: Sulfamethoxazole/Trimeth DS 1 EACH TABLET PO SCH (22:07)
[2018-05-30 05:33] LABS: Basophils # 0.1 K/mcL (0.0-0.2); Basophils % 0.5 %; Eosinophils # 0.4 K/mcL (0.0-0.6); Eosinophils % 4.5 %; Hematocrit 36.4 % (35.3-44.9); Hemoglobin 11.6 g/dL (11.5-15.4); Immature Granulocytes % 0.3 % (0-4); Lymphocytes # 3.5 K/mcL (0.6-4.6); Lymphocytes % 37.9 %; Mean Corpuscular HGB Conc 31.9 g/dL (31.6-35.5); Mean Corpuscular Hemoglobin 27.5 pg (28.0-33.3); Mean Corpuscular Volume 86.3 fL (83.0-100.0); Mean Platelet Volume 10.6 fL (9.4-12.4); Monocytes # 0.6 K/mcL (0.0-1.3); Monocytes % 6.8 %; Neutrophils # 4.6 K/mcL (1.6-8.9); Platelet Count 254 K/mcL (140-400); Red Blood Count 4.22 M/mcL (3.82-4.97); Red Cell Distribution Width 14.3 % (11.5-14.5)
[2018-05-30 05:50] LABS: INR 1.5; Prothrombin Time 16.8 Seconds (9.4-12.1)
[2018-05-30 05:58] LABS: BUN/Creatinine Ratio 19 (6-26); Blood Urea Nitrogen 10 mg/dL (6-20); Calcium 8.6 mg/dL (8.6-10.3); Carbon Dioxide 23 mEq/L (23-29); Chloride 109 mEq/L (98-107); Glucose 97 mg/dL (70-105); Osmolality,Calculated 291 (280-300); Potassium 3.3 mEq/L (3.5-5.1); Sodium 141 mEq/L (136-145); eGFR For Non-African Americans > 60 (> 60)
[2018-05-30] MEDS ORDERED: levoFLOXacin 750 MG TABLET PO SCH (09:00)
[2018-05-30] MEDS: Sulfamethoxazole/Trimeth DS 1 EACH TABLET PO SCH (09:27)
[2018-05-30] MEDS: Insulin DETEMIR 100 UNIT/ML X5UNITS SQ SCH (09:28)
--- NOTE | 2018-05-30 09:33 | Internal Med Progress Note ---
<Becca Umana - Last Filed: 05/30/18 13:05> Hospitalist Progress Note - Encounter Date of Encounter: 05/30/18 Time of Encounter: 13:05 - Exam Vitals: Temp Pulse Resp BP Pulse Ox 99.1 F 85 20 102/68 96 05/30/18 07:36 05/30/18 11:32 05/30/18 11:32 05/30/18 11:32 05/30/18 11:32 - Assessment and Plan (1) Severe sepsis Current Visit: Yes Status: Resolved (2) DKA (diabetic ketoacidoses) Current Visit: Yes Status: Acute (3) Multiple sclerosis Current Visit: Yes Status: Acute (4) T1DM (type 1 diabetes mellitus) Current Visit: Yes Status: Acute (5) Neurogenic bladder Current Visit: Yes Status: Chronic (6) Supratherapeutic INR Current Visit: Yes Status: Resolved (7) History of DVT (deep vein thrombosis) Current Visit: Yes Status: Acute (8) DVT prophylaxis Current Visit: Yes Status: Acute (9) Osteoporosis Current Visit: No Status: Chronic (10) Allergic rhinitis Current Visit: Yes Status: Chronic - Time Spent with Patient Total time spent is greater than 50% in coordination of care (as documented) at patient's floor/unit and/or counseling patient: Internal Medicine: Result - Labs CBC & Chem 7: 05/30/18 05:09 05/30/18 05:09 Labs: Short CBC 05/30/18 Range/Units 05:09 WBC 9.1 (4.3-11.1) K/mcL Hgb 11.6 (11.5-15.4) g/dL Hct 36.4 (35.3-44.9) % Plt Count 254 (140-400) K/mcL Neutrophils # 4.6 (1.6-8.9) K/mcL BMP 05/30/18 05:09 Sodium 141 Potassium 3.3 L Chloride 109 H Carbon Dioxide 23 BUN 10 Creatinine 0.53 L Glucose 97 Calcium 8.6 - ABG Interpretation ABG results: PT/INR, D-dimer PT 16.8 Seconds (9.4-12.1) H 05/30/18 05:09 Consult Discharge Plan - Plan Referrals: NONE,PCP [Primary Care Provider] - ([facility]) - Attending Attestation I saw evaluated and examined this patient and my medical decision-making was reviewed with the Resident Physician, Danae Cuellar. I agree with the documented findings, disposition and treatment plan as described except to any changes set forth below. We independently had [id number] contact with the patient. Patient evaluated earlier today. Doing well overall. Denies any new complaints at this time. Patient did have a new Rhodes catheter placed yesterday. She is currently awaiting pacer for placement to skilled rehabilitation. No fevers or chills reported overnight. On exam, patient is awake and alert. Disoriented. Mucous membranes moist. S1 and S2 are normal. Breath sounds are normal. Abdomen is soft, nontender. No pedal edema. Rhodes catheter in place Complicated UTI due to indwelling Rhodes catheter: Rhodes catheter placed back in yesterday. She has chronic indwelling Rhodes catheter for neurogenic bladder. Urine cultures grew mixed organisms. Blood cultures have been negative. On oral antibiotics at this time. Monitor renal function closely. Anticoagulation for prior DVT: Coumadin has been resumed. INR is subtherapeutic. Will continue Coumadin and monitor INR closely. Keep between 2 and 3. Diabetes mellitus type 1 with DKA: DKA resolved. Blood sugars are better controlled. She did have episode of hypoglycemia yesterday. Will decrease sliding scale coverage. Multiple sclerosis with neurogenic bladder: New Rhodes catheter placed yesterday. Continue Rhodes care. Continue supportive care. Decubitus ulcer prophylaxis. Low risk for complications. <Danae Cuellar - Last Filed: 05/30/18 13:48> Hospitalist Progress Note - Encounter Date of Encounter: 05/30/18 Time of Encounter: 09:31 - Subjective Interval History: Pt seen and examined resting comfortably in bed reporting no acute distress. Vital signs stable. Denies any new complaints. Denies fevers/chills, headache, vision changes, chest pain, SOB, abdoiminal pain, N/V/D. Currently AOx2 (unable to identify where she is). Per nursing and previous assessments, this is baseline. - Exam Vitals: Temp Pulse Resp BP Pulse Ox 99.1 F 81 20 114/69 97 05/30/18 07:36 05/30/18 07:36 05/30/18 07:36 05/30/18 07:36 05/30/18 07:36 Exam: GEN: NAD; AOx2; Vitals stable; resting comfortably in bed HEENT: Normocephalic, atraumatic, eomi, mucous membranes moist CARDIO: RRR, no murmurs, rubs, gallops RESP: CTAB, no wheezes, rales, rhonchi ABD: Soft, non-tender, nondistended, bowel sounds present EXT: no lower extremity swelling bilaterally - Assessment and Plan (1) DKA (diabetic ketoacidoses) Current Visit: Yes Status: Resolved Assessment and Plan: This is a 57 year old F with PMHx Multiple Sclerosis, DVT, T1DM, who presented due to DKA. Blood Sugar this AM: 97 Controlled with basal insulin and low dose sliding scale Had episode of hypoglycemia yesterday which improved after pt was given orange juice DKA has resolved PLAN: Cont basal insulin and low-dose sliding scale Will decrease slildng scale dosage (2) Multiple sclerosis Current Visit: No Status: Chronic Assessment and Plan: Chronic (3) Neurogenic bladder Current Visit: No Status: Chronic Assessment and Plan: Rhodes placed - patient accepted to [facility] at discharge PLAN: Cont Levaquin and Bactrim due to hx of previous UTIs and previous cultures Cont Lactobacillus Will discharge with Rhodes (4) T1DM (type 1 diabetes mellitus) Current Visit: Yes Status: Acute Assessment and Plan: Blood Sugar this AM = 97 PLAN: Cont basal insulin and low dose sliding scale Monitor blood sugars (5) History of DVT (deep vein thrombosis) Current Visit: No Status: Chronic Assessment and Plan: Currently on Coumadin INR = 1.5 Manage per Pharmacy (6) Severe sepsis Current Visit: Yes Status: Resolved Assessment and Plan: Vitals: T = 99.1; HR = 81: RR = 20; WBC = 9.1 Resolved Monitor Vitals (7) Osteoporosis Current Visit: No Status: Chronic Assessment and Plan: Chronic (8) Allergic rhinitis Current Visit: Yes Status: Chronic Assessment and Plan: Chronic (9) DVT prophylaxis Current Visit: No Status: Acute Assessment and Plan: On Coumadin currently DVT Prophylaxis: On Coumadin - Time Spent with Patient Total time spent is greater than 50% in coordination of care (as documented) at patient's floor/unit and/or counseling patient: less than 15 minutes Plan of Care Discussed with: patient Internal Medicine: Result - Labs CBC & Chem 7: 05/30/18 05:09 05/30/18 05:09 Labs: Short CBC 05/30/18 Range/Units 05:09 WBC 9.1 (4.3-11.1) K/mcL Hgb 11.6 (11.5-15.4) g/dL Hct 36.4 (35.3-44.9) % Plt Count 254 (140-400) K/mcL Neutrophils # 4.6 (1.6-8.9) K/mcL BMP 05/30/18 05:09 Sodium 141 Potassium 3.3 L Chloride 109 H Carbon Dioxide 23 BUN 10 Creatinine 0.53 L Glucose 97 Calcium 8.6 - ABG Interpretation ABG results: PT/INR, D-dimer PT 16.8 Seconds (9.4-12.1) H 05/30/18 05:09 <Becca Umana - Last Filed: 05/30/18 13:05> (2) DKA (diabetic ketoacidoses) Qualifiers: Diabetes mellitus type: type 1 Diabetes mellitus complication detail: without coma Qualified Code(s): E10.10 - Type 1 diabetes mellitus with ketoacidosis without coma (9) Osteoporosis Qualifiers: Osteoporosis type: unspecified Presence of current pathological fracture: unspecified Qualified Code(s): M81.0 - Age-related osteoporosis without current pathological fracture (10) Allergic rhinitis Qualifiers: Allergic rhinitis trigger: unspecified Allergic rhinitis seasonality: unspecified Qualified Code(s): J30.9 - Allergic rhinitis, unspecified <Danae Cuellar - Last Filed: 05/30/18 13:48> (1) DKA (diabetic ketoacidoses) Qualifiers: Diabetes mellitus type: type 1 Diabetes mellitus complication detail: without coma Qualified Code(s): E10.10 - Type 1 diabetes mellitus with ketoacidosis without coma (7) Osteoporosis Qualifiers: Osteoporosis type: unspecified Presence of current pathological fracture: unspecified Qualified Code(s): M81.0 - Age-related osteoporosis without current pathological fracture (8) Allergic rhinitis Qualifiers: Allergic rhinitis trigger: unspecified Allergic rhinitis seasonality: unspecified Qualified Code(s): J30.9 - Allergic rhinitis, unspecified
[2018-05-30] MEDS ORDERED: Lactobacillus 1 EACH CAP.SPRINK PO SCH (09:45)
[2018-05-30] MEDS: Insulin LISPRO 300 UNITS/3 ML VIAL SQ SCH ×2 (10:52→11:43)
[2018-05-30 11:41] VITALS: BP 102/68
[2018-05-30] MEDS ORDERED: Insulin LISPRO 300 UNITS/3 ML VIAL SQ SCH (13:08)
--- NOTE | 2018-05-30 15:21 | Physician Discharge Referral ---
[facility]Care Referral Info Transfer To: ECF Provider in Charge after Transfer: PCP Institutional Level of Care: Skilled - Diagnosis (1) DKA (diabetic ketoacidoses) Priority: Primary Status: Resolved (2) Multiple sclerosis Priority: Secondary Status: Chronic (3) Neurogenic bladder Priority: Secondary Status: Chronic (4) T1DM (type 1 diabetes mellitus) Priority: Secondary Status: Acute (5) History of DVT (deep vein thrombosis) Priority: Secondary Status: Chronic (6) Severe sepsis Priority: Secondary Status: Resolved (7) Osteoporosis Priority: Secondary Status: Chronic (8) Allergic rhinitis Priority: Secondary Status: Chronic (9) DVT prophylaxis Priority: Secondary Status: Acute Prognosis: Fair Aware of Diagnosis: Patient Aware of Prognosis: Patient - Transfer Medications Prescriptions: Lactobacillus [Culturelle] 1 each PO BID 9 Days #18 cap.sprink levoFLOXacin [Levaquin] 750 mg PO DAILY 9 Days #9 tablet Sulfamethoxazole/Trimeth DS [Bactrim Ds] 1 each PO BID 9 Days #18 tablet Warfarin [Coumadin] 4 mg PO DAILY 30 Days #30 tablet Home Medications: Alendronate Sodium [Fosamax] 70 mg PO MO 01/13/16 [History] Ascorbic Acid [Vitamin C] 500 mg PO BID 01/13/16 [History] Calcium Carbonate/Vitamin D3 [Calcium 500 + Vit D Caplet] 1 tab PO TID 01/13/16 [History] Docusate Sodium [Dok] 100 mg PO BID 01/13/16 [History] Ergocalciferol (VITAMIN D2) [Vitamin D2 (50,000 UNIT)] 50,000 unit PO GALLEGOS 01/13/16 [History] Insulin Glargine [Lantus] 15 unit SQ QAM 01/13/16 [History] Loratadine [Claritin] 10 mg PO DAILY 01/13/16 [History] Ondansetron HCl [Zofran] 4 mg PO Q6H PRN 01/13/16 [History] Polyethylene Glycol 3350 [MiraLAX] 17 gm PO DAILY 01/13/16 [History] Guaifenesin [Mucinex] 600 mg PO Q12H 09/05/17 [History] Ipratropium/Albuterol Neb [Duoneb] 1 vial IH Q4H PRN 09/05/17 [History] Benzonatate [Tessalon] 200 mg PO Q8H PRN 05/26/18 [History] Budesonide [Uceris] 9 mg PO DAILY 30 Days #30 tabdr...er 05/26/18 [Rx] Calcium Carbonate/Vitamin D3 [Oyster Shell Calcium-Vit D Tab] 1 tab PO TID 05/26/18 [History] Gentamicin Sulfate Cream [Gentamicin Sulfate] 0 gm TD BID 10 Days #1 tube 05/26/18 [Rx] Insulin LISPRO [Admelog] 2 - 12 unit SQ ACHS 05/26/18 [History] Nystatin POWDER [Nystop] 1 appl TP BID #30 gm 05/26/18 [Rx] Potassium Chloride [K-Tab ER] 10 meq PO DAILY 05/26/18 [History] Lactobacillus [Culturelle] 1 each PO BID 9 Days #18 cap.sprink 05/30/18 [Rx] Sulfamethoxazole/Trimeth DS [Bactrim Ds] 1 each PO BID 9 Days #18 tablet 05/30/18 [Rx] Warfarin [Coumadin] 4 mg PO DAILY 30 Days #30 tablet 05/30/18 [Rx] levoFLOXacin [Levaquin] 750 mg PO DAILY 9 Days #9 tablet 05/30/18 [Rx] Allergies/Adverse Reactions: Allergy/AdvReac Type Severity Reaction Status Date / Time No Known Allergies Allergy Verified 01/05/17 04:11 - Respiratory Orders Smoking Cessation: Smoking cessation has been advised. For more information, call the [place] Tobacco Quit Line at 3-320-EYTK-NOW. - Advance Directives Code Status: Full Code - Mobility Orders Chair, Bedrest - Rehabiliation Orders Rehab Potential: Fair Rehab Orders: ROM Exercises, Evaluation for Physical Therapy, Evaluation for Occupational Therapy - Diet Orders Cardiac (Diabetic Diet) CERTIFICATION: I certify that the transfer of the above named patient to an Extended Care Facility is necessary for the continuing treatment of the diagnosis listed. The above information is true and accurate reflection of patient's current condition. Confidential - Redisclosure prohibited without a patient's written consent.
[2018-05-30] MEDS ORDERED: *HR* Warfarin 3 MG TABLET PO ONE (18:00)
--- NOTE | 2018-05-30 22:17 | Electrocardiograph Report ---
[address] [address] Test Date: 2018-05-26 Pat Name: Claudette Boyd Department: EXAM4 Room: 2A39 Gender: F [employer] Supervisor: : [id number] Requested By: Jamari Humphrey Order Number: [id number] Reading MD: Jennifer Ribeiro Measurements Intervals [place] Rate: 127 P: 71 CA: 164 QRS: 0 QRSD: 80 T: 236 QT: 276 QTc: 402 Interpretive Statements Sinus tachycardia Probable left atrial enlargement Low voltage, precordial leads Borderline repolarization abnormality Electronically Signed On 05-30-2018 22:16:09 EST by Jennifer Ribeiro
[2018-06-01] MEDS ORDERED: NON-FORMULARY MEDICATION 1 EACH EACH (Alendronate Sodium [Fosamax] 70 MG) PO SCH (11:39)
== END 2018-05-30 17:49 | DRG 698 ==
LOC: EMEROOARM 17:37 → SUATTDRO 23:04 → INTOOBSV 23:04 → 2NNU 23:04 → SUATTDRO 05-27 14:55 → 2ANU 05-28 18:47
PROVIDERS: ADMIT Pediatrics; ATTEND Internal Medicine

== ENCOUNTER 2020-09-10 14:37 | Observation (INO) ==
[2020-09-10] MEDS ORDERED: Isovue-370 500 ML BOTTLE IVP ONE (14:41)
[2020-09-10 14:56] LABS: Hematocrit 38.3 % (35.3-44.9); Hemoglobin 11.9 g/dL (11.5-15.4); Mean Corpuscular HGB Conc 31.1 g/dL (31.6-35.5); Mean Corpuscular Hemoglobin 27.7 pg (28.0-33.3); Mean Corpuscular Volume 89.1 fL (83.0-100.0); Mean Platelet Volume 9.7 fL (9.4-12.4); Platelet Count 297 K/mcL (140-400); Red Cell Distribution Width 15.8 % (11.5-14.5); White Blood Count 12.2 K/mcL (4.3-11.1)
[2020-09-10 15:13] LABS: INR 6.9; Prothrombin Time 75.1 Seconds (9.4-12.1)
[2020-09-10 15:20] LABS: BUN/Creatinine Ratio 34 (6-26); Blood Urea Nitrogen 19 mg/dL (6-20); Calcium 9.9 mg/dL (8.6-10.3); Carbon Dioxide 26 mEq/L (23-29); Chloride 101 mEq/L (98-107); Glucose 65 mg/dL (70-105); Osmolality,Calculated 286 (280-300); Potassium 3.4 mEq/L (3.5-5.1); Sodium 138 mEq/L (136-145); eGFR For African Americans > 60 (> 60); eGFR For Non-African Americans > 60 (> 60)
[2020-09-10 15:21] LABS: Troponin I < 0.03 ng/mL (< 0.04)
[2020-09-10 15:31] LABS: Valproate 21 mcg/mL (50-100)
[2020-09-10] MEDS ORDERED: Gadolinium Contrast Agent (WT Based) IV PRN (15:54)
[2020-09-10] MEDS ORDERED: Naloxone 0.4 MG/ML INJ IVP PRN (16:21)
[2020-09-10] MEDS ORDERED: Acetaminophen 325 MG TABLET PO PRN (16:32)
[2020-09-10] MEDS ORDERED: Simethicone 80 MG TAB.CHEW PO PRN (16:32)
[2020-09-10] MEDS ORDERED: Ipratropium/Albuterol Neb 3 ML IH PRN (16:32)
[2020-09-10] MEDS ORDERED: D5% in Water 1,000 ML IVC PRN (16:35)
[2020-09-10] MEDS ORDERED: Dextrose Gel 15 GM/37.5 ML TUBE PO PRN ×2 (16:35)
[2020-09-10] MEDS ORDERED: *HR* Dextrose 50 % in Water (Vial) 50 ML VIAL IVP PRN (16:35)
[2020-09-10] MEDS ORDERED: MOM Conc 10 ML UD.LIQ PO PRN (16:50)
[2020-09-10] MEDS ORDERED: Ondansetron ODT 4 MG TAB.RAPDIS PO PRN (16:52)
[2020-09-10] MEDS: Potassium Chloride Elixir 20 MEQ/15 ML UDC PO ONE ×2 (18:49→21:14)
[2020-09-10] MEDS: Divalproex Sodium 125 MG Sprinkle Capsule (DR) PO SCH (21:13)
[2020-09-10] MEDS: Sennosides 8.6 MG TABLET PO SCH (21:13)
[2020-09-10] MEDS: Insulin DETEMIR 100 UNIT/ML X5UNITS SUBQ SCH (21:14)
[2020-09-10] MEDS: Insulin LISPRO 300 UNITS/3 ML VIAL SUBQ SCH (21:14)
[2020-09-11 03:15] LABS: Hemoglobin 11.8 g/dL (11.5-15.4); Mean Corpuscular HGB Conc 31.1 g/dL (31.6-35.5); Mean Corpuscular Hemoglobin 28.6 pg (28.0-33.3); Mean Corpuscular Volume 92.2 fL (83.0-100.0); Mean Platelet Volume 10.4 fL (9.4-12.4); Platelet Count 227 K/mcL (140-400); Red Blood Count 4.12 M/mcL (3.82-4.97); Red Cell Distribution Width 15.9 % (11.5-14.5); White Blood Count 7.7 K/mcL (4.3-11.1)
[2020-09-11 03:39] LABS: BUN/Creatinine Ratio 37 (6-26); Blood Urea Nitrogen 21 mg/dL (6-20); Calcium 9.3 mg/dL (8.6-10.3); Carbon Dioxide 22 mEq/L (23-29); Chloride 104 mEq/L (98-107); Glucose 249 mg/dL (70-105); Osmolality,Calculated 293 (280-300); Potassium 4.6 mEq/L (3.5-5.1); Sodium 136 mEq/L (136-145); eGFR For African Americans > 60 (> 60); eGFR For Non-African Americans > 60 (> 60)
[2020-09-11] MEDS: Divalproex Sodium 125 MG Sprinkle Capsule (DR) PO SCH ×2 (08:14→21:31)
[2020-09-11] MEDS: Sennosides 8.6 MG TABLET PO SCH ×2 (08:15→21:30)
[2020-09-11] MEDS: Insulin DETEMIR 100 UNIT/ML X5UNITS SUBQ SCH ×2 (08:16→20:40)
[2020-09-11] MEDS: Insulin LISPRO 300 UNITS/3 ML VIAL SUBQ SCH ×4 (08:17→20:40)
[2020-09-11] MEDS: polyethylene glycoL 3350 17 GM POWD.PACK PO SCH (08:19)
[2020-09-11] MEDS ORDERED: Perflutren Lipid Microsphere 1.3 ML in 0.9 % Sodium Chloride 8.7 ML IVP PRN (09:05)
[2020-09-11 10:07] LABS: INR 6.2; Prothrombin Time 68.5 Seconds (9.4-12.1)
[2020-09-11 10:31] LABS: Bilirubin,Urine Negative (Negative); Blood,Urine Small (Negative); Clarity,Urine Ex.Turbid (Clear); Color,Urine Dark-Orange (Yellow); Glucose,Urine (UA) Normal (Normal); Ketones,Urine 20 mg/dL (Negative); Leukocyte Esterase,Urine Moderate (Negative); Nitrite,Urine Negative (Negative); Protein,Urine >=300 mg/dL (Neg-Trace); Specific Gravity,Urine > 1.030 (1.010-1.025)
[2020-09-11 10:34] LABS: RBC,Urine Present per hpf (0-3); Squamous Epithelial Cell,Urine Present per hpf (None-Few); WBC,Urine TNTC per hpf (0-3)
[2020-09-11 10:36] LABS: Bacteria,Urine Present per hpf (None-Few)
[2020-09-11] MEDS ORDERED: *HR* Phytonadione 10 MG/ML AMPUL SQ ONE (13:05)
[2020-09-11] MEDS ORDERED: 0.9 % Sodium Chloride 1,000 ML IVC SCH (13:15)
[2020-09-11] MEDS ORDERED: cefTRIAXone 1,000 MG in Water for inj. (sterile) 10 ML IVP SCH (14:00)
[2020-09-11] MEDS: Aspirin 81 MG TAB.CHEW PO SCH (15:09)
[2020-09-12 04:17] LABS: Basophils # 0.1 K/mcL (0.0-0.2); Basophils % 0.7 %; Eosinophils # 0.2 K/mcL (0.0-0.6); Eosinophils % 2.3 %; Hematocrit 32.3 % (35.3-44.9); Hemoglobin 9.9 g/dL (11.5-15.4); Immature Granulocytes % 0.3 % (0-4); Lymphocytes # 2.8 K/mcL (0.6-4.6); Lymphocytes % 37.9 %; Mean Corpuscular HGB Conc 30.7 g/dL (31.6-35.5); Mean Corpuscular Hemoglobin 28.4 pg (28.0-33.3); Mean Corpuscular Volume 92.6 fL (83.0-100.0); Mean Platelet Volume 10.8 fL (9.4-12.4); Monocytes # 0.6 K/mcL (0.0-1.3); Monocytes % 8.4 %; Neutrophils # 3.7 K/mcL (1.6-8.9); Platelet Count 226 K/mcL (140-400); Red Blood Count 3.49 M/mcL (3.82-4.97); Red Cell Distribution Width 15.9 % (11.5-14.5); Segmented Neutrophils % 50.4 %; White Blood Count 7.4 K/mcL (4.3-11.1)
[2020-09-12 04:33] LABS: BUN/Creatinine Ratio 56 (6-26); Blood Urea Nitrogen 24 mg/dL (6-20); Calcium 8.5 mg/dL (8.6-10.3); Carbon Dioxide 20 mEq/L (23-29); Chloride 108 mEq/L (98-107); Glucose 85 mg/dL (70-105); Magnesium 1.9 mg/dL (1.6-2.6); Osmolality,Calculated 289 (280-300); Phosphorous 3.9 mg/dL (2.7-4.5); Potassium 3.9 mEq/L (3.5-5.1); Sodium 138 mEq/L (136-145); eGFR For African Americans > 60 (> 60); eGFR For Non-African Americans > 60 (> 60)
[2020-09-12 04:37] LABS: INR 4.4; Prothrombin Time 49.2 Seconds (9.4-12.1)
[2020-09-12] MEDS: Insulin LISPRO 300 UNITS/3 ML VIAL SUBQ SCH ×4 (08:21→20:32)
[2020-09-12] MEDS: polyethylene glycoL 3350 17 GM POWD.PACK PO SCH ×2 (08:57→14:14)
[2020-09-12] MEDS: Aspirin 81 MG TAB.CHEW PO SCH (08:58)
[2020-09-12] MEDS: Sennosides 8.6 MG TABLET PO SCH ×2 (08:59→20:37)
[2020-09-12] MEDS: Divalproex Sodium 125 MG Sprinkle Capsule (DR) PO SCH ×2 (08:59→20:37)
[2020-09-12 09:25] LABS: Hematocrit 34.4 % (35.3-44.9); Hemoglobin 10.2 g/dL (11.5-15.4)
[2020-09-12] MEDS: Insulin DETEMIR 100 UNIT/ML X5UNITS SUBQ SCH ×2 (10:45→20:38)
[2020-09-13 05:03] LABS: Basophils # 0.1 K/mcL (0.0-0.2); Basophils % 0.7 %; Eosinophils # 0.2 K/mcL (0.0-0.6); Eosinophils % 2.6 %; Hematocrit 34.9 % (35.3-44.9); Hemoglobin 10.4 g/dL (11.5-15.4); Immature Granulocytes % 0.2 % (0-4); Lymphocytes # 3.5 K/mcL (0.6-4.6); Lymphocytes % 42.6 %; Mean Corpuscular HGB Conc 29.8 g/dL (31.6-35.5); Mean Corpuscular Hemoglobin 27.3 pg (28.0-33.3); Mean Corpuscular Volume 91.6 fL (83.0-100.0); Mean Platelet Volume 10.5 fL (9.4-12.4); Monocytes # 0.8 K/mcL (0.0-1.3); Monocytes % 9.7 %; Neutrophils # 3.6 K/mcL (1.6-8.9); Platelet Count 232 K/mcL (140-400); Red Blood Count 3.81 M/mcL (3.82-4.97); Red Cell Distribution Width 15.7 % (11.5-14.5); Segmented Neutrophils % 44.2 %; White Blood Count 8.1 K/mcL (4.3-11.1)
[2020-09-13 05:14] LABS: INR 1.7; Prothrombin Time 19.7 Seconds (9.4-12.1)
[2020-09-13] MEDS: Insulin LISPRO 300 UNITS/3 ML VIAL SUBQ SCH ×2 (07:24→12:10)
[2020-09-13] MEDS: Sennosides 8.6 MG TABLET PO SCH (08:56)
[2020-09-13] MEDS: Aspirin 81 MG TAB.CHEW PO SCH (08:58)
[2020-09-13] MEDS: Divalproex Sodium 125 MG Sprinkle Capsule (DR) PO SCH (08:59)
[2020-09-13] MEDS: polyethylene glycoL 3350 17 GM POWD.PACK PO SCH (09:13)
[2020-09-13] MEDS: Insulin DETEMIR 100 UNIT/ML X5UNITS SUBQ SCH (09:15)
[2020-09-13 10:37] VITALS: BP 126/63
[2020-09-13 11:27] LABS: Adenovirus Not Detected (Not Detect); Coronavirus 229E Not Detected (Not Detect); Coronavirus HKU1 Not Detected (Not Detect); Coronavirus NL63 Not Detected (Not Detect); Coronavirus OC43 Not Detected (Not Detect); Human Metapneumovirus Not Detected (Not Detect); Human Rhinovirus/Enterovirus Not Detected (Not Detect); Influenza A Subtype 2009 H1 Not Detected (Not Detect); SARS-CoV-2 Not Detected (Not Detect)
[2020-09-13 11:28] LABS: Bordetella Pertussis Not Detected (Not Detect); Chlamydophila pneumoniae Not Detected (Not Detect); Influenza B Not Detected (Not Detect); Mycoplasma pneumoniae Not Detected (Not Detect); Parainfluenza Virus 1 Not Detected (Not Detect); Parainfluenza Virus 2 Not Detected (Not Detect); Parainfluenza Virus 3 Not Detected (Not Detect); Parainfluenza Virus 4 Not Detected (Not Detect); Respiratory Syncytial Virus Not Detected (Not Detect)
== END 2020-09-13 13:26 ==
LOC: 3BNU 14:37 → EMEROOARM 14:37 → SUATTDRO 16:02 → 3BNU 17:26
PROVIDERS: ADMIT Internal Medicine; ATTEND Internal Medicine

== ENCOUNTER 2021-01-02 01:22 | Inpatient (IN) ==
[2021-01-02] MEDS ORDERED: Isovue-370 500 ML BOTTLE IVP ONE (02:39)
[2021-01-02 03:43] LABS: Basophils # 0.1 K/mcL (0.0-0.2); Basophils % 0.5 %; Eosinophils % 0.1 %; Hematocrit 33.5 % (35.3-44.9); Hemoglobin 10.1 g/dL (11.5-15.4); Immature Granulocytes % 0.6 % (0-4); Lymphocytes # 2.8 K/mcL (0.6-4.6); Lymphocytes % 14.5 %; Mean Corpuscular HGB Conc 30.1 g/dL (31.6-35.5); Mean Corpuscular Volume 92.8 fL (83.0-100.0); Mean Platelet Volume 11.3 fL (9.4-12.4); Monocytes # 2.3 K/mcL (0.0-1.3); Monocytes % 11.9 %; Neutrophils # 14.1 K/mcL (1.6-8.9); Platelet Count 333 K/mcL (140-400); Red Blood Count 3.61 M/mcL (3.82-4.97); Red Cell Distribution Width 15.2 % (11.5-14.5); Segmented Neutrophils % 72.4 %; White Blood Count 19.4 K/mcL (4.3-11.1)
[2021-01-02 03:45] LABS: Bacteria,Urine Few per hpf (None-Few); Bilirubin,Urine Negative (Negative); Blood,Urine Small (Negative); Budding Yeast,Urine Many per hpf (None Seen); Clarity,Urine Ex.Turbid (Clear); Color,Urine Yellow (Yellow); Glucose,Urine (UA) Normal (Normal); Ketones,Urine 60 mg/dL (Negative); Leukocyte Esterase,Urine Small (Negative); Mucus,Urine Few per lpf (None-Few); Nitrite,Urine Negative (Negative); PH,Urine 7.5 pH Units (5.0-8.0); Protein,Urine >=300 mg/dL (Neg-Trace); RBC,Urine 30-50 per hpf (0-3); Specific Gravity,Urine 1.022 (1.010-1.025); WBC,Urine TNTC per hpf (0-3)
[2021-01-02 03:50] LABS: Alanine Aminotransferase 27 Units/L (7-52); Albumin 3.6 g/dL (3.5-5.7); Albumin/Globulin Ratio 0.9 (1.1-2.2); Alkaline Phosphatase 114 Units/L (34-104); Aspartate Amino Transferase 22 Units/L (13-39); BUN/Creatinine Ratio 38 (6-26); Bilirubin,Direct 0.1 mg/dL (0.0-0.2); Bilirubin,Indirect 0.4 mg/dL (0.0-1.0); Bilirubin,Total 0.5 mg/dL (0.3-1.0); Blood Urea Nitrogen 24 mg/dL (6-20); Calcium 9.4 mg/dL (8.6-10.3); Carbon Dioxide 23 mEq/L (23-29); Chloride 97 mEq/L (98-107); Globulin 4.1 g/dL (2.4-3.5); Glucose 268 mg/dL (70-105); Osmolality,Calculated 293 (280-300); Potassium 4.2 mEq/L (3.5-5.1); Sodium 135 mEq/L (136-145); Total Protein 7.7 g/dL (6.4-8.9); eGFR For African Americans > 60 (> 60); eGFR For Non-African Americans > 60 (> 60)
[2021-01-02 04:08] LABS: Prothrombin Time 56.5 Seconds (9.4-12.1)
[2021-01-02 04:09] LABS: INR 5.1
[2021-01-02] MEDS ORDERED: cefTRIAXone 1,000 MG in 0.9 % Sodium Chloride Mini Bag 100 ML IVPB ONE (04:28)
[2021-01-02] MEDS ORDERED: Acetaminophen 325 MG TABLET PO PRN (07:14)
[2021-01-02] MEDS ORDERED: MOM Conc 10 ML UD.LIQ PO PRN (07:14)
[2021-01-02] MEDS ORDERED: Ondansetron ODT 4 MG TAB.RAPDIS SL PRN (07:14)
[2021-01-02] MEDS ORDERED: Dextrose Gel 15 GM/37.5 ML TUBE PO PRN ×2 (07:14)
[2021-01-02] MEDS ORDERED: D5% in Water 1,000 ML IVC PRN (07:14)
[2021-01-02] MEDS ORDERED: Mag Hydrox/Al Hydrox/Simeth 30 ML UDC PO PRN (07:14)
[2021-01-02] MEDS ORDERED: Naloxone 0.4 MG/ML INJ IVP PRN (07:14)
[2021-01-02] MEDS ORDERED: *HR* Dextrose 50 % in Water (Vial) 50 ML VIAL IVP PRN (07:14)
[2021-01-02] MEDS: Piperacillin/Tazobactam 3.375 GM in 0.9 % Sodium Chloride Mini Bag 100 ML IVPB SCH ×2 (07:46→16:57)
[2021-01-02] MEDS: 0.9 % Sodium Chloride 1,000 ML IVC SCH ×3 (07:50→11:31)
[2021-01-02] MEDS: Insulin LISPRO 300 UNITS/3 ML VIAL SUBQ SCH ×4 (07:55→22:00)
[2021-01-02] MEDS ORDERED: Ipratropium/Albuterol Neb 3 ML IH PRN (15:29)
[2021-01-02] MEDS ORDERED: GuaiFENesin Liq 200 MG/10 ML UDC PO PRN (16:07)
[2021-01-02] MEDS: MESALAMINE 800 MG PO SCH (19:50)
[2021-01-02] MEDS: Divalproex Sodium 125 MG Sprinkle Capsule (DR) PO SCH (21:59)
[2021-01-03 01:02] LABS: Hematocrit 28.4 % (35.3-44.9); Hemoglobin 8.6 g/dL (11.5-15.4); Mean Corpuscular HGB Conc 30.3 g/dL (31.6-35.5); Mean Corpuscular Hemoglobin 27.9 pg (28.0-33.3); Mean Corpuscular Volume 92.2 fL (83.0-100.0); Mean Platelet Volume 10.6 fL (9.4-12.4); Platelet Count 267 K/mcL (140-400); Red Blood Count 3.08 M/mcL (3.82-4.97); Red Cell Distribution Width 15.2 % (11.5-14.5); White Blood Count 12.6 K/mcL (4.3-11.1)
[2021-01-03 01:09] LABS: INR 4.2
[2021-01-03 01:13] LABS: Prothrombin Time 46.3 Seconds (9.4-12.1)
[2021-01-03 01:18] LABS: BUN/Creatinine Ratio 44 (6-26); Blood Urea Nitrogen 23 mg/dL (6-20); Carbon Dioxide 20 mEq/L (23-29); Chloride 110 mEq/L (98-107); Glucose 304 mg/dL (70-105); Magnesium 1.8 mg/dL (1.6-2.6); Osmolality,Calculated 305 (280-300); Potassium 3.9 mEq/L (3.5-5.1); Sodium 140 mEq/L (136-145); eGFR For African Americans > 60 (> 60); eGFR For Non-African Americans > 60 (> 60)
[2021-01-03] MEDS: Piperacillin/Tazobactam 3.375 GM in 0.9 % Sodium Chloride Mini Bag 100 ML IVPB SCH ×3 (02:37→16:02)
[2021-01-03] MEDS: Divalproex (12 HR) 250 MG TABLET PO SCH (08:08)
[2021-01-03] MEDS: polyethylene glycoL 3350 17 GM POWD.PACK PO SCH (08:10)
[2021-01-03] MEDS: Insulin LISPRO 300 UNITS/3 ML VIAL SUBQ SCH ×4 (08:14→20:25)
[2021-01-03] MEDS: MESALAMINE 800 MG PO SCH ×3 (08:30→19:36)
[2021-01-03] MEDS ORDERED: Insulin DETEMIR 100 UNIT/ML X5UNITS SUBQ SCH (09:00)
[2021-01-03] MEDS ORDERED: NON-FORMULARY MEDICATION 1 EACH EACH (Escitalopram Oxalate 5 MG Tablet) PO SCH (09:00)
[2021-01-03 12:38] LABS: Hematocrit 29.7 % (35.3-44.9)
[2021-01-03] MEDS ORDERED: Ringers Solution, Lactated 1,000 ML IVC SCH (14:30)
[2021-01-03] MEDS: Divalproex Sodium 125 MG Sprinkle Capsule (DR) PO SCH (19:35)
[2021-01-04] MEDS: Piperacillin/Tazobactam 3.375 GM in 0.9 % Sodium Chloride Mini Bag 100 ML IVPB SCH ×3 (00:43→15:01)
[2021-01-04 02:16] LABS: Basophils # 0.1 K/mcL (0.0-0.2); Basophils % 0.5 %; Eosinophils # 0.2 K/mcL (0.0-0.6); Eosinophils % 1.8 %; Hematocrit 29.2 % (35.3-44.9); Hemoglobin 9.2 g/dL (11.5-15.4); Immature Granulocytes % 0.4 % (0-4); Lymphocytes # 3.4 K/mcL (0.6-4.6); Lymphocytes % 26.9 %; Mean Corpuscular HGB Conc 31.5 g/dL (31.6-35.5); Mean Corpuscular Hemoglobin 28.8 pg (28.0-33.3); Mean Corpuscular Volume 91.3 fL (83.0-100.0); Mean Platelet Volume 10.3 fL (9.4-12.4); Monocytes # 1.2 K/mcL (0.0-1.3); Monocytes % 9.3 %; Neutrophils # 7.7 K/mcL (1.6-8.9); Platelet Count 280 K/mcL (140-400); Red Cell Distribution Width 14.9 % (11.5-14.5); Segmented Neutrophils % 61.1 %; White Blood Count 12.5 K/mcL (4.3-11.1)
[2021-01-04 02:24] LABS: INR 3.1; Prothrombin Time 34.7 Seconds (9.4-12.1)
[2021-01-04 02:38] LABS: BUN/Creatinine Ratio 37 (6-26); Blood Urea Nitrogen 18 mg/dL (6-20); Calcium 8.1 mg/dL (8.6-10.3); Carbon Dioxide 23 mEq/L (23-29); Chloride 108 mEq/L (98-107); Glucose 87 mg/dL (70-105); Osmolality,Calculated 287 (280-300); Potassium 3.4 mEq/L (3.5-5.1); Sodium 138 mEq/L (136-145); eGFR For African Americans > 60 (> 60); eGFR For Non-African Americans > 60 (> 60)
[2021-01-04] MEDS: Insulin LISPRO 300 UNITS/3 ML VIAL SUBQ SCH ×4 (07:36→23:19)
[2021-01-04] MEDS: polyethylene glycoL 3350 17 GM POWD.PACK PO SCH (08:59)
[2021-01-04] MEDS: Divalproex (12 HR) 250 MG TABLET PO SCH ×3 (09:00→20:52)
[2021-01-04] MEDS: MESALAMINE 800 MG PO SCH ×3 (09:01→20:55)
[2021-01-04] MEDS: Insulin DETEMIR 100 UNIT/ML X5UNITS SUBQ SCH ×2 (09:01→23:20)
[2021-01-04] MEDS ORDERED: *HR* Warfarin 2 MG TABLET PO SCH (18:00)
[2021-01-04] MEDS ORDERED: Warfarin perPT PO PRN (18:00)
[2021-01-04] MEDS: Divalproex Sodium 125 MG Sprinkle Capsule (DR) PO SCH (20:54)
[2021-01-04] MEDS ORDERED: Piperacillin/Tazobactam 3.375 GM VIAL ONE (23:56)
[2021-01-05] MEDS: Piperacillin/Tazobactam 3.375 GM in 0.9 % Sodium Chloride Mini Bag 100 ML IVPB SCH ×3 (00:07→16:07)
[2021-01-05 05:05] LABS: Basophils # 0.1 K/mcL (0.0-0.2); Basophils % 0.6 %; Eosinophils # 0.2 K/mcL (0.0-0.6); Eosinophils % 2.1 %; Hematocrit 29.8 % (35.3-44.9); Hemoglobin 9.1 g/dL (11.5-15.4); Immature Granulocytes % 0.4 % (0-4); Mean Corpuscular HGB Conc 30.5 g/dL (31.6-35.5); Mean Corpuscular Hemoglobin 27.8 pg (28.0-33.3); Mean Corpuscular Volume 91.1 fL (83.0-100.0); Mean Platelet Volume 10.1 fL (9.4-12.4); Monocytes # 0.8 K/mcL (0.0-1.3); Monocytes % 8.8 %; Neutrophils # 5.3 K/mcL (1.6-8.9); Platelet Count 282 K/mcL (140-400); Red Blood Count 3.27 M/mcL (3.82-4.97); Red Cell Distribution Width 15.1 % (11.5-14.5); Segmented Neutrophils % 56.1 %; White Blood Count 9.4 K/mcL (4.3-11.1)
[2021-01-05 05:12] LABS: INR 1.9; Prothrombin Time 22.1 Seconds (9.4-12.1)
[2021-01-05 05:23] LABS: BUN/Creatinine Ratio 44 (6-26); Blood Urea Nitrogen 19 mg/dL (6-20); Calcium 8.3 mg/dL (8.6-10.3); Carbon Dioxide 24 mEq/L (23-29); Chloride 109 mEq/L (98-107); Glucose 134 mg/dL (70-105); Osmolality,Calculated 302 (280-300); Potassium 3.7 mEq/L (3.5-5.1); Sodium 144 mEq/L (136-145); eGFR For African Americans > 60 (> 60); eGFR For Non-African Americans > 60 (> 60)
[2021-01-05] MEDS: Insulin LISPRO 300 UNITS/3 ML VIAL SUBQ SCH ×4 (08:13→20:11)
[2021-01-05] MEDS: Insulin DETEMIR 100 UNIT/ML X5UNITS SUBQ SCH ×2 (10:03→20:12)
[2021-01-05] MEDS: polyethylene glycoL 3350 17 GM POWD.PACK PO SCH (10:04)
[2021-01-05] MEDS: MESALAMINE 800 MG PO SCH (10:05)
[2021-01-05 12:26] LABS: INR 1.8; Prothrombin Time 20.2 Seconds (9.4-12.1)
[2021-01-05] MEDS: Ringers Solution, Lactated 1,000 ML IVC SCH (12:29)
[2021-01-05] MEDS ORDERED: *HR* Enoxaparin 80 MG/0.8 ML SYRINGE SQ SCH (17:00)
[2021-01-05] MEDS ORDERED: *HR* Warfarin 3 MG TABLET PO ONE (18:00)
[2021-01-05] MEDS: Divalproex Sodium 125 MG Sprinkle Capsule (DR) PO SCH (20:12)
[2021-01-06] MEDS: Piperacillin/Tazobactam 3.375 GM in 0.9 % Sodium Chloride Mini Bag 100 ML IVPB SCH ×3 (00:14→16:55)
[2021-01-06] MEDS: Ringers Solution, Lactated 1,000 ML IVC SCH (00:56)
[2021-01-06 08:27] LABS: INR 1.5; Prothrombin Time 17.6 Seconds (9.4-12.1)
[2021-01-06] MEDS: polyethylene glycoL 3350 17 GM POWD.PACK PO SCH (08:59)
[2021-01-06] MEDS: Insulin LISPRO 300 UNITS/3 ML VIAL SUBQ SCH ×4 (09:00→21:17)
[2021-01-06] MEDS: Insulin DETEMIR 100 UNIT/ML X5UNITS SUBQ SCH ×2 (09:13→21:18)
[2021-01-06] MEDS: *HR* Enoxaparin 80 MG/0.8 ML SYRINGE SQ SCH ×2 (09:15→21:16)
[2021-01-06 14:57] LABS: Bilirubin,Urine Negative (Negative); Blood,Urine Moderate (Negative); Clarity,Urine Clear (Clear); Color,Urine Yellow (Yellow); Glucose,Urine (UA) 500 mg/dL (Normal); Ketones,Urine Negative (Negative); Leukocyte Esterase,Urine Trace (Negative); Nitrite,Urine Negative (Negative); PH,Urine 6.5 pH Units (5.0-8.0); Protein,Urine 30 mg/dL (Neg-Trace); Specific Gravity,Urine 1.025 (1.010-1.025); Urobilinogen,Urine Normal (Normal)
[2021-01-06 15:00] LABS: Mucus,Urine Few per lpf (None-Few); RBC,Urine 50-100 per hpf (0-3); Squamous Epithelial Cell,Urine Moderate per hpf (None-Few); WBC,Urine TNTC per hpf (0-3)
[2021-01-06] MEDS ORDERED: *HR* Warfarin 5 MG TABLET PO ONE (18:00)
[2021-01-06] MEDS: Divalproex Sodium 125 MG Sprinkle Capsule (DR) PO SCH (21:16)
[2021-01-07] MEDS: Piperacillin/Tazobactam 3.375 GM in 0.9 % Sodium Chloride Mini Bag 100 ML IVPB SCH ×3 (01:10→17:05)
[2021-01-07 01:23] LABS: Basophils # 0.1 K/mcL (0.0-0.2); Basophils % 0.6 %; Eosinophils # 0.2 K/mcL (0.0-0.6); Eosinophils % 2.2 %; Hematocrit 27.5 % (35.3-44.9); Hemoglobin 8.6 g/dL (11.5-15.4); Immature Granulocytes % 0.5 % (0-4); Lymphocytes # 3.5 K/mcL (0.6-4.6); Lymphocytes % 32.2 %; Mean Corpuscular HGB Conc 31.3 g/dL (31.6-35.5); Mean Corpuscular Hemoglobin 28.1 pg (28.0-33.3); Mean Corpuscular Volume 89.9 fL (83.0-100.0); Mean Platelet Volume 10.2 fL (9.4-12.4); Monocytes # 0.8 K/mcL (0.0-1.3); Monocytes % 7.7 %; Neutrophils # 6.2 K/mcL (1.6-8.9); Platelet Count 358 K/mcL (140-400); Red Blood Count 3.06 M/mcL (3.82-4.97); Segmented Neutrophils % 56.8 %; White Blood Count 10.8 K/mcL (4.3-11.1)
[2021-01-07 01:30] LABS: INR 1.6; Prothrombin Time 18.6 Seconds (9.4-12.1)
[2021-01-07 01:42] LABS: BUN/Creatinine Ratio 39 (6-26); Blood Urea Nitrogen 21 mg/dL (6-20); Calcium 8.5 mg/dL (8.6-10.3); Carbon Dioxide 23 mEq/L (23-29); Chloride 107 mEq/L (98-107); Glucose 231 mg/dL (70-105); Osmolality,Calculated 304 (280-300); Potassium 3.4 mEq/L (3.5-5.1); Sodium 142 mEq/L (136-145); eGFR For African Americans > 60 (> 60); eGFR For Non-African Americans > 60 (> 60)
[2021-01-07] MEDS: Potassium Chloride Elixir 20 MEQ/15 ML UDC PO ONE ×2 (09:37→09:38)
[2021-01-07] MEDS: *HR* Enoxaparin 80 MG/0.8 ML SYRINGE SQ SCH ×2 (09:37→20:42)
[2021-01-07] MEDS: Divalproex (12 HR) 250 MG TABLET PO SCH (09:38)
[2021-01-07] MEDS: Insulin LISPRO 300 UNITS/3 ML VIAL SUBQ SCH ×4 (09:39→20:29)
[2021-01-07] MEDS: polyethylene glycoL 3350 17 GM POWD.PACK PO SCH (09:40)
[2021-01-07] MEDS: Insulin DETEMIR 100 UNIT/ML X5UNITS SUBQ SCH ×2 (09:43→20:29)
[2021-01-07] MEDS ORDERED: *HR* Warfarin 3 MG TABLET PO ONE (18:00)
[2021-01-07] MEDS: Divalproex Sodium 125 MG Sprinkle Capsule (DR) PO SCH (20:43)
[2021-01-08] MEDS: Piperacillin/Tazobactam 3.375 GM in 0.9 % Sodium Chloride Mini Bag 100 ML IVPB SCH ×3 (00:02→16:25)
[2021-01-08 06:19] LABS: Basophils # 0.1 K/mcL (0.0-0.2); Basophils % 0.6 %; Eosinophils # 0.2 K/mcL (0.0-0.6); Eosinophils % 1.5 %; Hematocrit 31.2 % (35.3-44.9); Hemoglobin 9.3 g/dL (11.5-15.4); Immature Granulocytes % 0.5 % (0-4); Lymphocytes # 3.1 K/mcL (0.6-4.6); Lymphocytes % 24.2 %; Mean Corpuscular HGB Conc 29.8 g/dL (31.6-35.5); Mean Corpuscular Hemoglobin 27.3 pg (28.0-33.3); Mean Corpuscular Volume 91.5 fL (83.0-100.0); Mean Platelet Volume 10.1 fL (9.4-12.4); Monocytes % 7.8 %; Neutrophils # 8.3 K/mcL (1.6-8.9); Platelet Count 402 K/mcL (140-400); Red Blood Count 3.41 M/mcL (3.82-4.97); Red Cell Distribution Width 15.1 % (11.5-14.5); Segmented Neutrophils % 65.4 %; White Blood Count 12.7 K/mcL (4.3-11.1)
[2021-01-08 06:29] LABS: INR 1.6; Prothrombin Time 18.7 Seconds (9.4-12.1)
[2021-01-08 06:37] LABS: BUN/Creatinine Ratio 28 (6-26); Blood Urea Nitrogen 15 mg/dL (6-20); Calcium 8.6 mg/dL (8.6-10.3); Carbon Dioxide 23 mEq/L (23-29); Chloride 108 mEq/L (98-107); Glucose 132 mg/dL (70-105); Magnesium 1.8 mg/dL (1.6-2.6); Osmolality,Calculated 295 (280-300); Potassium 3.1 mEq/L (3.5-5.1); Sodium 141 mEq/L (136-145); eGFR For African Americans > 60 (> 60); eGFR For Non-African Americans > 60 (> 60)
[2021-01-08] MEDS ORDERED: Potassium Chloride 40 MEQ, Lidocaine 1% 2 ML in 0.9 % Sodium Chloride 500 ML IVPB ONE (07:20)
[2021-01-08] MEDS: Insulin LISPRO 300 UNITS/3 ML VIAL SUBQ SCH ×4 (08:53→21:16)
[2021-01-08] MEDS: polyethylene glycoL 3350 17 GM POWD.PACK PO SCH (09:02)
[2021-01-08] MEDS: Divalproex (12 HR) 250 MG TABLET PO SCH (09:02)
[2021-01-08] MEDS: *HR* Enoxaparin 80 MG/0.8 ML SYRINGE SQ SCH ×2 (09:04→21:15)
[2021-01-08] MEDS ORDERED: Insulin DETEMIR 100 UNIT/ML X5UNITS SUBQ ONE (14:57)
[2021-01-08] MEDS ORDERED: *HR* Warfarin 5 MG TABLET PO ONE (18:00)
[2021-01-08] MEDS: Divalproex Sodium 125 MG Sprinkle Capsule (DR) PO SCH (21:14)
[2021-01-08] MEDS: Melatonin 3 MG TABLET PO PRN (21:14)
[2021-01-09] MEDS: Piperacillin/Tazobactam 3.375 GM in 0.9 % Sodium Chloride Mini Bag 100 ML IVPB SCH ×3 (00:46→15:13)
[2021-01-09 03:10] LABS: Basophils # 0.1 K/mcL (0.0-0.2); Basophils % 0.6 %; Eosinophils # 0.2 K/mcL (0.0-0.6); Eosinophils % 1.9 %; Hematocrit 25.6 % (35.3-44.9); Hemoglobin 7.9 g/dL (11.5-15.4); Immature Granulocytes % 0.4 % (0-4); Lymphocytes # 3.1 K/mcL (0.6-4.6); Lymphocytes % 27.3 %; Mean Corpuscular HGB Conc 30.9 g/dL (31.6-35.5); Mean Corpuscular Hemoglobin 27.9 pg (28.0-33.3); Mean Corpuscular Volume 90.5 fL (83.0-100.0); Mean Platelet Volume 9.9 fL (9.4-12.4); Monocytes # 0.9 K/mcL (0.0-1.3); Monocytes % 8.1 %; Platelet Count 363 K/mcL (140-400); Red Blood Count 2.83 M/mcL (3.82-4.97); Red Cell Distribution Width 14.9 % (11.5-14.5); Segmented Neutrophils % 61.7 %; White Blood Count 11.3 K/mcL (4.3-11.1)
[2021-01-09 03:18] LABS: INR 1.7; Prothrombin Time 19.8 Seconds (9.4-12.1)
[2021-01-09 03:39] LABS: BUN/Creatinine Ratio 28 (6-26); Blood Urea Nitrogen 15 mg/dL (6-20); Carbon Dioxide 23 mEq/L (23-29); Chloride 108 mEq/L (98-107); Glucose 262 mg/dL (70-105); Magnesium 2.1 mg/dL (1.6-2.6); Osmolality,Calculated 298 (280-300); Potassium 3.4 mEq/L (3.5-5.1); Sodium 139 mEq/L (136-145); eGFR For African Americans > 60 (> 60); eGFR For Non-African Americans > 60 (> 60)
[2021-01-09] MEDS: Divalproex (12 HR) 250 MG TABLET PO SCH (07:28)
[2021-01-09] MEDS: *HR* Enoxaparin 80 MG/0.8 ML SYRINGE SQ SCH ×2 (07:28→20:15)
[2021-01-09] MEDS: polyethylene glycoL 3350 17 GM POWD.PACK PO SCH (07:28)
[2021-01-09] MEDS: Insulin LISPRO 300 UNITS/3 ML VIAL SUBQ SCH ×4 (07:35→21:07)
[2021-01-09] MEDS ORDERED: Potassium Chloride Elixir 20 MEQ/15 ML UDC PO ONE ×2 (09:00→13:00)
[2021-01-09 13:47] LABS: Hematocrit 28.9 % (35.3-44.9); Hemoglobin 8.7 g/dL (11.5-15.4)
[2021-01-09] MEDS ORDERED: *HR* Warfarin 5 MG TABLET PO ONE (18:00)
[2021-01-09] MEDS: Divalproex Sodium 125 MG Sprinkle Capsule (DR) PO SCH (20:14)
[2021-01-09] MEDS: Melatonin 3 MG TABLET PO PRN (20:14)
[2021-01-10] MEDS: Piperacillin/Tazobactam 3.375 GM in 0.9 % Sodium Chloride Mini Bag 100 ML IVPB SCH ×3 (00:33→17:29)
[2021-01-10 04:22] LABS: Basophils # 0.1 K/mcL (0.0-0.2); Basophils % 0.7 %; Eosinophils # 0.3 K/mcL (0.0-0.6); Eosinophils % 2.4 %; Hematocrit 27.3 % (35.3-44.9); Hemoglobin 8.3 g/dL (11.5-15.4); Immature Granulocytes % 0.5 % (0-4); Lymphocytes % 25.1 %; Mean Corpuscular HGB Conc 30.4 g/dL (31.6-35.5); Mean Corpuscular Hemoglobin 28.2 pg (28.0-33.3); Mean Corpuscular Volume 92.9 fL (83.0-100.0); Mean Platelet Volume 9.9 fL (9.4-12.4); Monocytes # 0.8 K/mcL (0.0-1.3); Monocytes % 6.5 %; Neutrophils # 7.8 K/mcL (1.6-8.9); Platelet Count 383 K/mcL (140-400); Red Blood Count 2.94 M/mcL (3.82-4.97); Red Cell Distribution Width 15.1 % (11.5-14.5); Segmented Neutrophils % 64.8 %; White Blood Count 12.1 K/mcL (4.3-11.1)
[2021-01-10 04:35] LABS: Prothrombin Time 22.9 Seconds (9.4-12.1)
[2021-01-10 04:42] LABS: BUN/Creatinine Ratio 29 (6-26); Blood Urea Nitrogen 16 mg/dL (6-20); Calcium 8.3 mg/dL (8.6-10.3); Carbon Dioxide 19 mEq/L (23-29); Chloride 105 mEq/L (98-107); Glucose 363 mg/dL (70-105); Osmolality,Calculated 312 (280-300); Potassium 4.2 mEq/L (3.5-5.1); Sodium 143 mEq/L (136-145); eGFR For African Americans > 60 (> 60); eGFR For Non-African Americans > 60 (> 60)
[2021-01-10] MEDS: *HR* Enoxaparin 80 MG/0.8 ML SYRINGE SQ SCH ×2 (09:27→20:47)
[2021-01-10] MEDS: Divalproex (12 HR) 250 MG TABLET PO SCH (09:27)
[2021-01-10] MEDS: Insulin LISPRO 300 UNITS/3 ML VIAL SUBQ SCH ×3 (09:27→17:29)
[2021-01-10] MEDS: polyethylene glycoL 3350 17 GM POWD.PACK PO SCH (09:48)
[2021-01-10] MEDS: Insulin DETEMIR 100 UNIT/ML X5UNITS SUBQ SCH (11:54)
[2021-01-10] MEDS ORDERED: *HR* Warfarin 5 MG TABLET PO ONE (18:00)
[2021-01-10] MEDS: Divalproex Sodium 125 MG Sprinkle Capsule (DR) PO SCH (20:49)
[2021-01-10] MEDS ORDERED: Insulin LISPRO 300 UNITS/3 ML VIAL SUBQ SCH (21:00)
[2021-01-11 03:05] LABS: Basophils # 0.1 K/mcL (0.0-0.2); Basophils % 0.6 %; Eosinophils # 0.2 K/mcL (0.0-0.6); Eosinophils % 1.8 %; Hematocrit 26.1 % (35.3-44.9); Immature Granulocytes % 0.6 % (0-4); Lymphocytes % 23.7 %; Mean Corpuscular HGB Conc 30.7 g/dL (31.6-35.5); Mean Corpuscular Hemoglobin 27.9 pg (28.0-33.3); Mean Corpuscular Volume 90.9 fL (83.0-100.0); Mean Platelet Volume 10.4 fL (9.4-12.4); Monocytes # 1.1 K/mcL (0.0-1.3); Monocytes % 8.3 %; Neutrophils # 8.2 K/mcL (1.6-8.9); Platelet Count 445 K/mcL (140-400); Red Blood Count 2.87 M/mcL (3.82-4.97); Red Cell Distribution Width 15.4 % (11.5-14.5); White Blood Count 12.6 K/mcL (4.3-11.1)
[2021-01-11 03:12] LABS: Estimated Average Glucose 206 mg/dl; Hemoglobin A1C 8.8 %
[2021-01-11 03:19] LABS: INR 3.7; Prothrombin Time 41.1 Seconds (9.4-12.1)
[2021-01-11 03:23] LABS: BUN/Creatinine Ratio 35 (6-26); Blood Urea Nitrogen 19 mg/dL (6-20); Calcium 8.2 mg/dL (8.6-10.3); Carbon Dioxide 20 mEq/L (23-29); Chloride 108 mEq/L (98-107); Glucose 178 mg/dL (70-105); Magnesium 1.8 mg/dL (1.6-2.6); Osmolality,Calculated 297 (280-300); Potassium 3.2 mEq/L (3.5-5.1); Sodium 140 mEq/L (136-145); eGFR For African Americans > 60 (> 60); eGFR For Non-African Americans > 60 (> 60)
[2021-01-11 03:24] LABS: % Iron Saturation 11 % (15-50); Iron 26 mcg/dL (50-170); Transferrin 169 mg/dL (203-362)
[2021-01-11 03:43] LABS: Ferritin 51 ng/mL (10-120)
[2021-01-11 03:47] LABS: Folate 11.8 ng/mL (3.0-16.0)
[2021-01-11] MEDS: Piperacillin/Tazobactam 3.375 GM in 0.9 % Sodium Chloride Mini Bag 100 ML IVPB SCH ×3 (06:17→12:37)
[2021-01-11] MEDS ORDERED: Cyanocobalamin (B-12) 1,000 MCG/ML VIAL SQ ONE (08:22)
[2021-01-11] MEDS ORDERED: Iron Sucrose Complex 250 MG in 0.9 % Sodium Chloride 250 ML IVPB ONE (08:22)
[2021-01-11] MEDS: Divalproex (12 HR) 250 MG TABLET PO SCH (08:33)
[2021-01-11] MEDS: *HR* Enoxaparin 80 MG/0.8 ML SYRINGE SQ SCH (08:34)
[2021-01-11] MEDS: Insulin DETEMIR 100 UNIT/ML X5UNITS SUBQ SCH (08:38)
[2021-01-11] MEDS: Insulin LISPRO 300 UNITS/3 ML VIAL SUBQ SCH ×3 (08:39→16:52)
[2021-01-11] MEDS: polyethylene glycoL 3350 17 GM POWD.PACK PO SCH (08:48)
[2021-01-11 16:01] VITALS: BP 138/81
== END 2021-01-11 17:33 | DRG 871 ==
LOC: CDU 01:22 → EMEROOARM 01:22 → SUATTDRO 06:42 → CDU 07:10 → 2ANU 13:29 → SUATTDRO 01-03 14:56 → 3ANU 01-04 18:21
PROVIDERS: ADMIT Student in an Organized Health Care Education/Training Program; ATTEND Pharmacist